=== PATIENT | female | born 1930 | race Caucasian/White ===

== ENCOUNTER 2017-02-01 16:42 | Inpatient (IN) | payer MEDICARE ==
[2017-02-01] MEDS ORDERED: hydrALAZINE IV* 20 MG/ML VIAL IV SLOW PU ONE (16:58)
[2017-02-01 17:23] LABS: Hematocrit 39 % (35-47); Hemoglobin 12.8 g/dl (12.0-16.0); Mean Corpuscular HGB Conc 33 g/dl (31-36); Mean Corpuscular Hemoglobin 32 pg (27-31); Mean Corpuscular Volume 95 fL (80-97); Mean Platelet Volume 8 um3 (7.4-10.4); Red Blood Count 4.07 10^6/ul (4.0-5.4); Red Cell Distribution Width 14 % (10.5-15); White Blood Count 6.7 10^3/ul (3.5-10.8)
[2017-02-01 17:40] LABS: Albumin 3.8 g/dL (3.2-5.2); BUN/Creatinine Ratio 22.2 (8-20); EGFR Non-African American 66.9 (>60); Globulin 2.8 g/dL (2-4); HDL Cholesterol 57.6 mg/dL; Potassium 3.4 mmol/L (3.5-5.0); Total Bilirubin 0.5 mg/dL (0.2-1.0); Total Protein 6.6 g/dL (6.4-8.9)
[2017-02-01 17:41] LABS: Troponin I 0.03 ng/mL (<0.04)
[2017-02-01] MEDS ORDERED: Ondansetron INJ* 2 MG/ML VIAL ONE (17:49)
--- NOTE | 2017-02-01 17:50 | RAD ---
INDICATION: Dysphagia and unsteadiness. COMPARISON: Most recent comparison CT of the brain is dated July 12, 2015 TECHNIQUE: Contiguous axial sections of the brain were obtained from the skull base to the vertex without contrast. FINDINGS: The ventricles, cisterns and sulci exhibit mild to moderate symmetrical involutional changes unchanged since the prior CT of the brain. There is mild periventricular and subcortical white matter hypoattenuation most consistent with chronic microvascular disease. Again seen is a more confluent hypoattenuating focus at the right subinsular ribbon unchanged since the prior CT examination. Otherwise the gloria-white matter differentiation is adequately maintained and there is no sulcal effacement. No significant focal abnormality or mass effect is present. There is no evidence for intracranial hemorrhage. There is atherosclerotic calcification of the bilateral vertebral arteries and bilateral petrous carotid arteries. No significant focal osseous abnormality is present. The visualized portion of the paranasal sinuses and mastoid air cells appear clear. IMPRESSION: Chronic findings described in the body the report without CT evidence of acute intracranial abnormality.
--- NOTE | 2017-02-01 17:52 | RAD ---
INDICATION: Dysphagia COMPARISON: Most recent comparison chest x-rays dated June 02, 2009 TECHNIQUE: PA and lateral views of the chest were obtained. FINDINGS: Again seen overlying the left upper chest is a cardiac pacemaker with 2 leads overlying the heart. The heart and mediastinum are normal in size and contour. The lungs are grossly clear. There is no evidence of large pleural effusion. Degenerative changes of the thoracic spine include loss of intervertebral disc height. There is no radiographic evidence of free air beneath the diaphragm IMPRESSION: No radiographic evidence of acute cardiopulmonary disease.
[2017-02-01] MEDS ORDERED: Aspirin SUPP* 300 MG ONE (17:59)
[2017-02-01] MEDS ORDERED: Ondansetron INJ* 2 MG/ML VIAL IV ONE ×2 (18:02→18:18)
[2017-02-01] MEDS ORDERED: Labetalol IV* 5 MG/ML 20 ML VIAL IV PUSH ONE (18:15)
[2017-02-01] MEDS ORDERED: Aspirin EC Low Dose* 81 MG TAB.EC ONE (18:19)
[2017-02-01] MEDS: Aspirin Low Dose CHEW TAB* 81 MG PO ONE ×2 (18:21→19:53)
[2017-02-01] MEDS ORDERED: Alteplase* 100 MG VIAL ONE (19:09)
[2017-02-01] MEDS ORDERED: Iohexol 350* (CONTRAST) 500 ML MDV IV ONE (19:11)
[2017-02-01] MEDS ORDERED: Metoclopramide IV* 5 MG/ML 2 ML VIAL IV ONE (19:33)
[2017-02-01] MEDS ORDERED: Metoclopramide IV* 5 MG/ML 2 ML VIAL ONE (19:38)
[2017-02-01] MEDS ORDERED: ALTEPLASE IV ONE ×3 (20:06→20:18)
--- NOTE | 2017-02-01 20:06 | RAD ---
INDICATION: Right-sided weakness and difficulty speaking. COMPARISON: CT from the same day acquired at [address] of the brain dated July 12, 2015 TECHNIQUE: Contiguous axial sections of the brain were obtained from the skull base to the vertex without contrast. For the purposes of better identifying the hyperdense focus external to the left frontal lobe reformats in the sagittal and coronal planes were made. FINDINGS: Again seen is a hyperdense focus external to the left frontal lobe (axial image 22, sagittal image 50 and coronal image 19). This structure measures 11 x 5 mm in the axial plane and approximately 8 mm in the cephalocaudal dimension. Reformats of the same day CT of the brain were made and this structure is morphologically similar with similar dimensions. Along the inferior margin there is calcification. The Hounsfield unit of the hyperdense portion measures 85 which is greater than would be expected for blood products. There is no definite extra-axial blood products. There is mild periventricular and subcortical white matter hypoattenuation. The gloria-white matter differentiation is adequately maintained. There is no sulcal effacement. IMPRESSION: The hypodense focus external to the left frontal lobe described above is most consistent with a partially calcified meningioma. This structure is unchanged from the same day CT examination acquired at 0725 hours. Comparison to the July 12, 2015 CT examination is somewhat limited as only axial images are available, but this extra-axial structure appears similar in the axial plane. No definite extra-axial hemorrhage is identified. These findings were discussed over the telephone with Dr. Gong at approximately 1950 hours on February 01, 2017.
[2017-02-01 20:42] LABS: Urine Bacteria 1+ (Absent); Urine Bilirubin Negative (Negative); Urine Glucose 1+(50 mg/dL) (Negative); Urine Nitrite Negative (Negative)
--- NOTE | 2017-02-01 22:28 | RAD ---
CPT II: CPT II Codes: 3100F INDICATION: Speech difficulty and right-sided weakness. The patient has received intravenous therapeutic TPA. COMPARISON: To noncontrast CTs from the same date as well as CT of the brain dated July 12, 2015 TECHNIQUE: A CT angiogram of the head and neck was performed with 80 cc of Omnipaque 350. Contiguous axial sections were obtained from the thoracic inlet through the [place] of [place]. Images were reconstructed in the sagittal, coronal planes and in a 3-D volume rendered format. The distal cervical internal carotid artery diameter is used as the denominater for stenosis measurement. CTA NECK: The common and internal carotid arteries are patent without hemodynamically significant stenosis. Right: The rather carotid bifurcation the common carotid artery measures 6 mm in diameter. There is mixed attenuation atherosclerosis at the carotid bulb causing narrowing of the inferior most portion of the right internal carotid artery to 4 mm. This yields approximately 33% degree stenosis. Left: Immediately below the carotid bifurcation the common carotid artery measures 6 mm and short axis diameter. There is coarsely calcified atherosclerosis at the carotid bulb narrowing the lumen to 3 mm in short axis diameter. This yields approximately 50% degree stenosis. The left vertebral artery is diminutive relative to the right. Both vertebral arteries are adequately patent at the cervical level. The left vertebral artery exhibits high-grade stenosis after entering the foramen magnum (axial image 124 of 233). More superiorly the left vertebral artery becomes extremely diminutive prior to joining the right vertebral artery to form the basilar artery. CTA of the brain: The internal carotid, anterior and middle cerebral arteries appear are patent without high grade stenosis or occlusion. The vertebral, basilar and posterior cerebral arteries appear patent without high grade stenosis or occlusion. The left posterior communicating artery is extremely diminutive and/or absent. This causes the ho[place] of [place] to be incomplete. The left posterior inferior cerebellar artery is either extremely diminutive or absent relative to the contralateral side (axial image 140 of 233). NON-ARTERIAL FINDINGS: Again seen against the inner table of the left frontal lobe is a convex lesion measuring 7 x 15 mm in the axial plane and 11 mm and greatest cephalocaudal dimension. This structure is enhancing. IMPRESSION: 1. The superiormost intracranial portion of the left vertebral artery is extremely diminutive and exhibits at least 2 filling defects prior to its confluence into the basilar artery. 2. The left posterior inferior cerebellar artery is also extremely diminutive and/or absence in portions relative to the contralateral right side. 3. Mixed attenuation atherosclerosis at the bilateral carotid bulbs causes 33% degree stenosis on the right and 50% degree stenosis on the left. 4. Again seen is a convex mass extending from the inner table of the left frontal bone similar to the noncontrast CTs acquired the same day as well as a CT of the brain dated July 12, 2015. This mass appears slightly larger than the noncontrast CT examinations which is likely due to more thorough depiction after contrast administration. On a nonemergent basis this finding can be more completely characterized with MRI of the brain with and without contrast.
[2017-02-01] MEDS ORDERED: Acetaminophen TAB* 325 MG PO PRN (23:40)
[2017-02-01] MEDS ORDERED: Ondansetron INJ* 2 MG/ML VIAL IV PRN (23:41)
--- NOTE | 2017-02-01 23:44 | HP ---
H&P (Free Text) History and Physical: PCP: Autumn Ahmadi MD Date/Time: 2329 CC: garbled speech HPI: Mrs Huynh is an 87YO female HX HTN, HLD, DM2, diastolic dysfunction, VT, pacer, mild , LBBB, & mild dementia whose son-in-law was picking her up from [facility]. Finding her speech garbled, he called EMS and by their prompt arrival she was back to her baseline. Upon return to her ED room after CT brain WO, she again developed speech changes and was re-CT'd. Both were negative for hemorrhage. Tele-stroke was utilized and tPA administered at 2005. CTA head/ neck revealed filling defects in the posterior circulation, but no large vessel occlusion or culprit carotid lesion and so decision was made to admit to [facility] for post-tPA protocol. However prior to this, she was found to be markedly lethargic and so a 3rd CT brain WO was performed, again negative for hemorrhage. PMedHx VT mild LBBB diastolic dysfunction HTN HLD mild dementia Ambulatory Orders Sitagliptin Phosphate [Januvia] 1 tab PO DAILY 05/29/13 Valsartan TAB* [Diovan TAB*] 1 tab PO BID 05/30/13 Atorvastatin* [Lipitor*] 1 tab PO BEDTIME 02/25/15 Diltiazem HCl Coated Beads [Diltiazem HCl ER] 180 mg PO DAILY 02/01/17 Metoprolol Succinate [Metoprolol Succinate ER] 25 mg PO QPM 02/01/17 Metoprolol Succinate [Metoprolol Succinate ER] 50 mg PO QAM 02/01/17 Vitamin D-3 1 tab PO DAILY 02/01/17 metFORMIN* [Glucophage 500 MG TAB *] 500 mg PO DAILY 02/01/17 Allergies Penicillins Allergy (Intermediate, Verified 02/01/17 19:04) Hives Wheat Extract Allergy (Mild, Verified 02/01/17 19:04) Rash And Itching PSurgHx OU cataract extractions pacer placement cardiac cath 2013, negative for occlusive CAD tonsillectomy SocHx: no tobacco, alcohol, or recreational drugs; , lives at [facility]; full code status FamHx: positive for HTN, negative for CAD/CVA ROS: as above, otherwise reviewed and all were negative vitals: Vital Signs Temp 37.2 C 02/02/17 03:07 Pulse 64 02/02/17 03:07 Resp 15 02/02/17 03:11 BP 172/59 02/02/17 03:00 Pulse Ox 97 02/02/17 03:07 Intake & Output 02/01/17 02/01/17 02/02/17 11:59 23:59 11:59 Intake Total 54.0 Output Total 450 Balance 54.0 -450 Weight 60.192 kg 59.2 kg Intake: IV Fluids 54.0 Output: [place]ibode[place] 450 Constitutional: NAD, normally developed, well-nourished elderly white female HEENM: atraumatic; sclera/conjunctiva: anicteric/clear; hearing: clinically mildly decreased; oropharynx: clear, mucosa tacky Neck: soft tissue: non-tender; thyroid: normal Pulmonary: clear to auscultation bilaterally, good aeration, no accessory muscle use CV: RR/RR, normal S1S2, no carotid bruit, no jugular venous distention, 2+ B DP/ PT, no edema Abdominal: soft, non-distended, non-tender, no rebound/guarding/rigidity, normoactive bowel sounds, no hepatosplenomegaly or masses, no costovertebral angle tenderness Musculoskeletal: general: grossly intact, no palpable tenderness Integumental: normal appearance and texture of exposed skin Neurological cranial nerves III/IV/: symmetric light reflex, EOM w/ decreased medial and lateral motion bilaterally, PERRLA V: intact facial sensation VII: intact facial symmetry VIII: hearing clinically mildly decreased IX/X: symmetric palatal motion, no dysarthria XII: midline tongue protrusion, normal articulation motor: R handed LUE: 4/5 proximally, distally, & em physician strength RUE: 4+/5 proximally, distally, & em physician strength LLE: 4-/5 proximally & distally RLE: 4/5 proximally & distally coordination finger/nose: unable to perform primarily 2nd fatigue heal/hamlin: L unable to perform; R slow & incomplete DTRs biceps: 1+ B triceps: 1+ B brachioradialis: 1+ B patellar: 2+ B Achilles: trace B Babinski: upgoing L, downgoing R Psychiatric orientation: somnolent, arouses & answers brief questions, returning to sleep quickly affect: fatigue mood: acquiescent eye contact: poor content: reliable when she answers responses: slowed insight: poor Testing: Lab Results 02/01/17 02/01/17 02/01/17 Range/Units 17:18 17:18 17:18 WBC 6.7 (3.5-10.8) 10^3/ul RBC 4.07 (4.0-5.4) 10^6/ul Hgb 12.8 (12.0-16.0) g/dl Hct 39 (35-47) % MCV 95 (80-97) fL MCH 32 H (27-31) pg MCHC 33 (31-36) g/dl RDW 14 (10.5-15) % Plt Count 201 (150-450) 10^3/ul MPV 8 (7.4-10.4) um3 Neut % (Auto) 65.0 (38-83) % Lymph % (Auto) 26.0 (25-47) % [place] % (Auto) 7.1 (1-9) % Eos % (Auto) 1.0 (0-6) % Baso % (Auto) 0.9 (0-2) % Absolute Neuts (auto) 4.3 (1.5-7.7) 10^3/ul Absolute Lymphs (auto) 1.7 (1.0-4.8) 10^3/ul Absolute Monos (auto) 0.5 (0-0.8) 10^3/ul Absolute Eos (auto) 0.1 (0-0.6) 10^3/ul Absolute Basos (auto) 0.1 (0-0.2) 10^3/ul Absolute Nucleated RBC 0.01 10^3/ul Nucleated RBC % 0.1 INR (Anticoag Therapy) 0.94 (0.89-1.11) Sodium 137 (133-145) mmol/L Potassium 3.4 L (3.5-5.0) mmol/L Chloride 104 (101-111) mmol/L Carbon Dioxide 26 (22-32) mmol/L Anion Gap 7 (2-11) mmol/L BUN 18 (6-24) mg/dL Creatinine 0.81 (0.51-0.95) mg/dL Est GFR ( Amer) 86.0 (>60) Est GFR (Non-Af Amer) 66.9 (>60) BUN/Creatinine Ratio 22.2 H (8-20) Glucose 175 H (70-100) mg/dL POC Glucose (mg/dL) (70-100) mg/dL Lactic Acid (0.5-2.0) mmol/L Calcium 9.0 (8.6-10.3) mg/dL Total Bilirubin 0.50 (0.2-1.0) mg/dL AST 18 (13-39) U/L ALT 12 (7-52) U/L Alkaline Phosphatase 53 (34-104) U/L Troponin I 0.03 (<0.04) ng/mL Total Protein 6.6 (6.4-8.9) g/dL Albumin 3.8 (3.2-5.2) g/dL Globulin 2.8 (2-4) g/dL Albumin/Globulin Ratio 1.4 (1-3) Triglycerides 80 mg/dL Cholesterol 241 mg/dL LDL Cholesterol 167 mg/dL HDL Cholesterol 57.6 mg/dL Urine Color Urine Appearance Urine pH (5-9) Ur Specific [place] (1.010-1.030) Urine Protein (Negative) Urine Ketones (Negative) Urine Blood (Negative) Urine Nitrate (Negative) Urine Bilirubin (Negative) Urine Urobilinogen (Negative) Ur Leukocyte Esterase (Negative) Urine WBC (Auto) (Absent) Urine RBC (Auto) (Absent) Ur Squamous Epith Cells (Absent) Urine Bacteria (Absent) Urine Glucose (Negative) 02/01/17 02/01/17 02/01/17 Range/Units 17:18 17:56 20:30 WBC (3.5-10.8) 10^3/ul RBC (4.0-5.4) 10^6/ul Hgb (12.0-16.0) g/dl Hct (35-47) % MCV (80-97) fL MCH (27-31) pg MCHC (31-36) g/dl RDW (10.5-15) % Plt Count (150-450) 10^3/ul MPV (7.4-10.4) um3 Neut % (Auto) (38-83) % Lymph % (Auto) (25-47) % [place] % (Auto) (1-9) % Eos % (Auto) (0-6) % Baso % (Auto) (0-2) % Absolute Neuts (auto) (1.5-7.7) 10^3/ul Absolute Lymphs (auto) (1.0-4.8) 10^3/ul Absolute Monos (auto) (0-0.8) 10^3/ul Absolute Eos (auto) (0-0.6) 10^3/ul Absolute Basos (auto) (0-0.2) 10^3/ul Absolute Nucleated RBC 10^3/ul Nucleated RBC % INR (Anticoag Therapy) (0.89-1.11) Sodium (133-145) mmol/L Potassium (3.5-5.0) mmol/L Chloride (101-111) mmol/L Carbon Dioxide (22-32) mmol/L Anion Gap (2-11) mmol/L BUN (6-24) mg/dL Creatinine (0.51-0.95) mg/dL Est GFR ( Amer) (>60) Est GFR (Non-Af Amer) (>60) BUN/Creatinine Ratio (8-20) Glucose (70-100) mg/dL POC Glucose (mg/dL) 213 H (70-100) mg/dL Lactic Acid 0.7 (0.5-2.0) mmol/L Calcium (8.6-10.3) mg/dL Total Bilirubin (0.2-1.0) mg/dL AST (13-39) U/L ALT (7-52) U/L Alkaline Phosphatase (34-104) U/L Troponin I (<0.04) ng/mL Total Protein (6.4-8.9) g/dL Albumin (3.2-5.2) g/dL Globulin (2-4) g/dL Albumin/Globulin Ratio (1-3) Triglycerides mg/dL Cholesterol mg/dL LDL Cholesterol mg/dL HDL Cholesterol mg/dL Urine Color Yellow Urine Appearance Clear Urine pH 5.0 (5-9) Ur Specific [place] 1.014 (1.010-1.030) Urine Protein 1+(30 mg/dl) H (Negative) Urine Ketones 1+ H (Negative) Urine Blood Negative (Negative) Urine Nitrate Negative (Negative) Urine Bilirubin Negative (Negative) Urine Urobilinogen Negative (Negative) Ur Leukocyte Esterase Negative (Negative) Urine WBC (Auto) Trace(0-5/hpf) (Absent) Urine RBC (Auto) Trace(0-2/hpf) (Absent) Ur Squamous Epith Cells Present H (Absent) Urine Bacteria 1+ H (Absent) Urine Glucose 1+(50 mg/dl) H (Negative) ECG, personally reviewed: ventricularly paced rate 65 CXR, personally reviewed: IMPRESSION: No radiographic evidence of acute cardiopulmonary disease. first CT brain WO, personally reviewed: IMPRESSION: Chronic findings described in the body the report without CT evidence of acute intracranial abnormality. second CT brain WO, personally reviewed: IMPRESSION: The hypodense focus external to the left frontal lobe described above is most consistent with a partially calcified meningioma. This structure is unchanged from the same day CT examination acquired at 0725 hours. Comparison to the July 12, 2015 CT examination is somewhat limited as only axial images are available, but this extra-axial structure appears similar in the axial plane. No definite extra- axial hemorrhage is identified. third CT brain WO, personally reviewed: FINDINGS: There is contrast circulating in the intracranial system from prior contrast study. No hemorrhage. No shift or herniation. 1.4x6.3mm left frontal meningioma. Involutional changes with moderate ventriculomegaly. I do not have the prior scan currently nor do I have the patient's symptoms history. However there is increased low-density in the right superior cerebellum. Is this the area of the suspected infarct? CTA head/neck, personally reviewed: IMPRESSION: 1. The superiormost intracranial portion of the left vertebral artery is extremely diminutive and exhibits at least 2 filling defects prior to its confluence into the basilar artery. 2. The left posterior inferior cerebellar artery is also extremely diminutive and/or absence in portions relative to the contralateral right side. 3. Mixed attenuation atherosclerosis at the bilateral carotid bulbs causes 33 % degree stenosis on the right and 50% degree stenosis on the left. 4. Again seen is a convex mass extending from the inner table of the left frontal bone similar to the noncontrast CTs acquired the same day as well as a CT of the brain dated July 12, 2015. This mass appears slightly larger than the noncontrast CT examinations which is likely due to more thorough depiction after contrast administration. On a nonemergent basis this finding can be more completely characterized with MRI of the brain with and without contrast. Impression: 87F presenting with acute CVA s/p tPA DIAGNOSIS & PLAN Primary ischemic CVA s/p tPA : post-tPA protocol : Elyssa Nuno MD physician office secretary aware of admission : supportive care Secondary HX VT : telemetry diastolic dysfunction : strict I&Os : daily weights HTN : review meds once reconciled HLD : review meds once reconciled mild dementia : review meds once reconciled Admission Rational: inpatient for ICU post-CVA tPA protocol DVTp: tPA for 1st 24hours, then to be determined by attending Code Status: full HCP: daughter, Nohelia Ibarra [phone]
--- NOTE | 2017-02-01 23:50 | ED ---
Willow Desouza Jason, scribed for Anna Gong MD on 02/01/17 at 1949 . Progress - Progress Note Progress Note: 19:30 - This patient was signed out from Dr. Reilly, pending disposition, awaiting house fellow and CTA Head results. With the results of the CTA, Dr. Gong will call Dr. Hilliard and make the decision of whether the pt will stay in the ICU or be transferred to [facility]. 2245 - Dr. Gong visited the room to check on patient and discuss with pt and family the CTA results. Pt was sleeping, and snoring loudly; pt daughter said pt is a heavy sleeper. Dr. Gong attempted to arouse patient. Pt is responsive to pulling on right extremities. The patients LUE is flaccid, and the LLE is moving well. Patients eye exam shows pinpoint pupil. A non-contrast head CT was ordered to rule out intracranial bleed. 2331 - Head CT shows no intracranial bleeds. Dr. Gong consulted with Dr. Hilliard from [facility], who advised that the patient be admitted to [facility]. Dr. Gong subsequently consulted with Dr. Douglas, who will be admitting the patient. After this Head CT the patient was awake talking , and resting comfortably. The patient's motor exam was grossly non-focal. - Results/Orders Results/Orders: 19:01 - Brain CT reveals, per radiologist: the hypodense focus external to the left frontal lobe described above is most consistent with a partially calcified meningioma. This structure is unchanged from the same day CT examination acquired at 0725 hours. Comparison to the July 12, 2015 CT examination is somewhat limited as only axial images are available, but this extra-axial structure appears similar in the axial plane. No definite extra-axial hemorrhage is identified. These findings were discussed over the telephone with Dr. Gong at approximately 1950 on February 01, 2017. ED physician has reviewed this radiology report and agrees. 19:16 - Head CTA reveals The internal carotid, anterior and middle cerebral arteries appear are patent without high grade stenosis or occlusion. The vertebral, basilar and posterior cerebral arteries appear patent without high grade stenosis or occlusion. The left posterior communicating artery is extremely diminutive and/or absent. This causes the [place] to be incomplete. The left posterior inferior cerebellar artery is either extremely diminutive or absent relative to the contralateral side (axial image 140 of 233). NON-ARTERIAL FINDINGS: again seen against the inner table of the left frontal lobe is a convex lesion measuring 7 x 15 mm in the axial plane and 11 mm and greatest cephalocaudal dimension. This structure is enhancing. ED physician has reviewed this radiology report and agrees. 22:39 - Brain CT: Radiologist consulted with Dr. Gong and informed him that there are no signs of intracranial bleeding. Course/Dx - Diagnoses Provider Diagnoses: Ischemic cerebrovascular accident (CVA) - Provider Notifications Discussed Care Of Patient With: Vikas Douglas Time Discussed With Above Provider: 23:30 Instructed by Provider To: Admit As Inpatient The documentation as recorded by the Willow barnett Jason accurately reflects the service I personally performed and the decisions made by , Anna Gong MD.
[2017-02-02] MEDS ORDERED: hydrALAZINE IV* 20 MG/ML VIAL IV PRN (01:57)
[2017-02-02] MEDS: NS 0.9% 1000 ML* 1,000 ML IV SCH ×2 (02:09→15:20)
[2017-02-02] MEDS: Insulin LISPRO* 1 UNITS UNIT SUBCUT SCH ×5 (05:20→22:21)
[2017-02-02] MEDS ORDERED: Pantoprazole IV* 40 MG IV SCH (06:00)
[2017-02-02] MEDS ORDERED: Omeprazole CAP* 20 MG PO SCH (06:00)
--- NOTE | 2017-02-02 07:40 | RAD ---
HISTORY: Intracranial hemorrhage status post TPA administration COMPARISONS: February 01, 2017 at 5:24 PM, February 01, 2017 at 7:30 PM TECHNIQUE: Multiple contiguous axial CT scans were obtained of the head without intravenous contrast, though the patient received intravenous contrast shortly before the study. FINDINGS: HEMORRHAGE/INFARCT: There is hypoattenuation of the right superior cerebellum concerning for subacute hemorrhagic infarct. This has developed from the previous examination. MASSES/SHIFT: Again noted is an extra axial mass further described below. There is no shift. EXTRA-AXIAL SPACES: Again noted is a calcified left frontal extra-axial mass most consistent with meningioma measuring 0.6 cm in depth and 1.4 cm in transverse diameter. This is stable from the previous examination. SULCI AND VENTRICLES: The sulci and ventricles are normal in size and position for the patient's stated age. CEREBRUM: There is hypoattenuation of the periventricular and subcortical white matter. BRAINSTEM: There are no focal parenchymal abnormalities. CEREBELLUM: There is developing wedge-shaped hypoattenuation of the right superior cerebellum concerning for a subacute nonhemorrhagic infarct. VESSELS: There is calcification of the cavernous segments of the internal carotid arteries bilaterally and of the distal vertebral arteries bilaterally. PARANASAL SINUSES: The paranasal sinuses are clear. ORBITS: The orbits are unremarkable. BONES AND SOFT TISSUE: No bone or soft tissue abnormalities are noted. OTHER: None IMPRESSION: 1. DEVELOPING HYPOATTENUATION OF THE RIGHT SUPERIOR CEREBELLUM CONCERNING FOR SUBACUTE NONHEMORRHAGIC INFARCT. 2. STABLE LEFT FRONTAL MENINGIOMA. FINDINGS WERE DISCUSSED WITH DR. FARNSWORTH BY DR. GILL AT APPROXIMATELY 11:16 PM ON FEBRUARY 01, 2017
--- NOTE | 2017-02-02 08:47 | ED ---
Carl Desouza Angela, scribed for Devante Reilly MD on 02/01/17 at 1652 . Neurological HPI - HPI Summary HPI Summary: This pt is a 87 y/o female presenting to [facility] c/o unsteadiness and muffled speech x 20 min. Pt reports she was at home with her daughter and son-in-law making turkey when they noticed her muffled speech. Pt notes her speech currently in the ED is back to base line. EMS reports the pt was found hypertensive. PMHx includes HTN, DM type 2, pacemaker. Pt currently takes antihypertensive medications. Manual BP in the ED is 220/112 at arrival. Daughter (Nohelia Stauffer) states the pt's symptoms of unsteadiness and muffled speech began around 1600 today. Daughter reports the pt is not anticoagulated. Daughter states the pt takes Tylenol and has tension headaches. - History of Current Complaint Stated Complaint: DYSPHASIA Hx Obtained From: Patient Onset/Duration: Started hours ago, Still Present Timing: Sudden Onset Character: Other: - muffled speech, unsteadiness Aggravating: Nothing Alleviating: Nothing Associated Signs and Symptoms: Positive: Unsteady Gait - unsteadiness - Allergy/Home Medications Allergies/Adverse Reactions: Allergies Allergy/AdvReac Type Severity Reaction Status Date / Time Penicillins Allergy Intermediate Hives Verified 02/01/17 19:04 Wheat Extract Allergy Mild Rash And Verified 02/01/17 19:04 Itching PMH/Surg Hx/FS Hx/Imm Hx Endocrine/Hematology History: Reports: Hx Diabetes - type 2 Cardiovascular History: Reports: Hx Hypertension, Hx Pacemaker/ICD, Other Cardiovascular Problems/Disorders - HLD Sensory History: Reports: Hx Cataracts, Hx Glaucoma - Surgical History Surgery Procedure, Year, and Place: pacemaker= 2010 cataracts 2013 - Family History Known Family History: Positive: Other - Mother: CVA - Social History Alcohol Use: None Substance Use Type: Reports: None Smoking Status (MU): Never Smoked Tobacco Review of Systems Constitutional: Other - hypertension Negative: Fever, Chills Eyes: Negative ENT: Negative Cardiovascular: Negative Respiratory: Negative Gastrointestinal: Negative Neurological: Other - unsteadiness, muffled speech All Other Systems Reviewed And Are Negative: Yes Physical Exam - Summary Physical Exam Summary: VITAL SIGNS: Reviewed. GENERAL: Patient is a well-developed and nourished (MALE OR FEMALE) who is lying comfortable in the stretcher. Patient is not in any acute respiratory distress. HEAD AND FACE: No signs of trauma. No ecchymosis, hematomas or skull depressions. No sinus tenderness. EYES: PERRLA, EOMI x 2, No injected conjunctiva, no nystagmus. No photophobia. EARS: Hearing grossly intact. Ear canals and tympanic membranes are within normal limits. MOUTH: Oropharynx within normal limits. NECK: Supple, trachea is midline, no adenopathy, no JVD, no carotid bruit, no c- spine tenderness, neck with full ROM. No meningeal signs, no Kernig's or brudzinskis signs. CHEST: Symmetric, no tenderness at palpation LUNGS: Clear to auscultation bilaterally. No wheezing or crackles. CVS: Regular rate and rhythm, S1 and S2 present, no murmurs or gallops appreciated. ABDOMEN: Soft, non-tender. No signs of distention. No rebound no guarding, and no masses palpated. Bowel sounds are normal. EXTREMITIES: FROM in all major joints, no edema, no cyanosis or clubbing. NEURO: Alert and oriented x 3. No acute neurological deficits. Speech is normal and follows commands. NIH score (initial) = 0. SKIN: Dry and warm GCS: 15 Triage Information Reviewed: Yes Vital Signs On Initial Exam: Initial Vitals Pulse Ox 96 02/01/17 16:51 Vital Signs Reviewed: Yes Diagnostics - Vital Signs Vital Signs Temp Pulse Resp BP Pulse Ox 02/01/17 23:30 65 14 182/135 99 02/01/17 23:15 61 25 133/41 98 02/01/17 23:00 18 169/46 02/01/17 22:45 83 18 166/54 97 02/01/17 22:30 68 13 122/41 97 02/01/17 22:15 69 17 127/38 98 02/01/17 22:00 71 14 124/45 96 02/01/17 21:45 68 15 135/40 98 02/01/17 21:30 72 16 132/54 97 02/01/17 21:15 69 15 148/45 98 02/01/17 21:10 139/41 02/01/17 21:09 62 14 99 02/01/17 21:08 62 14 99 02/01/17 21:05 153/45 02/01/17 21:00 63 15 145/43 99 02/01/17 20:55 69 14 178/50 99 02/01/17 20:50 62 14 140/55 97 02/01/17 20:45 63 16 137/40 99 02/01/17 20:40 64 16 167/65 99 02/01/17 20:35 62 15 127/52 98 02/01/17 20:30 64 17 140/37 98 02/01/17 20:25 157/57 02/01/17 20:24 63 18 97 02/01/17 17:00 190/70 02/01/17 16:54 97.0 F 68 15 220/112 96 02/01/17 16:51 96 - Laboratory Lab Results: Lab Results 02/01/17 02/01/17 02/01/17 Range/Units 17:18 17:18 17:18 WBC 6.7 (3.5-10.8) 10^3/ul RBC 4.07 (4.0-5.4) 10^6/ul Hgb 12.8 (12.0-16.0) g/dl Hct 39 (35-47) % MCV 95 (80-97) fL MCH 32 H (27-31) pg MCHC 33 (31-36) g/dl RDW 14 (10.5-15) % Plt Count 201 (150-450) 10^3/ul MPV 8 (7.4-10.4) um3 Neut % (Auto) 65.0 (38-83) % Lymph % (Auto) 26.0 (25-47) % [place] % (Auto) 7.1 (1-9) % Eos % (Auto) 1.0 (0-6) % Baso % (Auto) 0.9 (0-2) % Absolute Neuts (auto) 4.3 (1.5-7.7) 10^3/ul Absolute Lymphs (auto) 1.7 (1.0-4.8) 10^3/ul Absolute Monos (auto) 0.5 (0-0.8) 10^3/ul Absolute Eos (auto) 0.1 (0-0.6) 10^3/ul Absolute Basos (auto) 0.1 (0-0.2) 10^3/ul Absolute Nucleated RBC 0.01 10^3/ul Nucleated RBC % 0.1 INR (Anticoag Therapy) 0.94 (0.89-1.11) Sodium 137 (133-145) mmol/L Potassium 3.4 L (3.5-5.0) mmol/L Chloride 104 (101-111) mmol/L Carbon Dioxide 26 (22-32) mmol/L Anion Gap 7 (2-11) mmol/L BUN 18 (6-24) mg/dL Creatinine 0.81 (0.51-0.95) mg/dL Est GFR ( Amer) 86.0 (>60) Est GFR (Non-Af Amer) 66.9 (>60) BUN/Creatinine Ratio 22.2 H (8-20) Glucose 175 H (70-100) mg/dL POC Glucose (mg/dL) (70-100) mg/dL Lactic Acid (0.5-2.0) mmol/L Calcium 9.0 (8.6-10.3) mg/dL Total Bilirubin 0.50 (0.2-1.0) mg/dL AST 18 (13-39) U/L ALT 12 (7-52) U/L Alkaline Phosphatase 53 (34-104) U/L Troponin I 0.03 (<0.04) ng/mL Total Protein 6.6 (6.4-8.9) g/dL Albumin 3.8 (3.2-5.2) g/dL Globulin 2.8 (2-4) g/dL Albumin/Globulin Ratio 1.4 (1-3) Triglycerides 80 mg/dL Cholesterol 241 mg/dL LDL Cholesterol 167 mg/dL HDL Cholesterol 57.6 mg/dL Urine Color Urine Appearance Urine pH (5-9) Ur Specific [place] (1.010-1.030) Urine Protein (Negative) Urine Ketones (Negative) Urine Blood (Negative) Urine Nitrate (Negative) Urine Bilirubin (Negative) Urine Urobilinogen (Negative) Ur Leukocyte Esterase (Negative) Urine WBC (Auto) (Absent) Urine RBC (Auto) (Absent) Ur Squamous Epith Cells (Absent) Urine Bacteria (Absent) Urine Glucose (Negative) 02/01/17 02/01/17 02/01/17 Range/Units 17:18 17:56 20:30 WBC (3.5-10.8) 10^3/ul RBC (4.0-5.4) 10^6/ul Hgb (12.0-16.0) g/dl Hct (35-47) % MCV (80-97) fL MCH (27-31) pg MCHC (31-36) g/dl RDW (10.5-15) % Plt Count (150-450) 10^3/ul MPV (7.4-10.4) um3 Neut % (Auto) (38-83) % Lymph % (Auto) (25-47) % [place] % (Auto) (1-9) % Eos % (Auto) (0-6) % Baso % (Auto) (0-2) % Absolute Neuts (auto) (1.5-7.7) 10^3/ul Absolute Lymphs (auto) (1.0-4.8) 10^3/ul Absolute Monos (auto) (0-0.8) 10^3/ul Absolute Eos (auto) (0-0.6) 10^3/ul Absolute Basos (auto) (0-0.2) 10^3/ul Absolute Nucleated RBC 10^3/ul Nucleated RBC % INR (Anticoag Therapy) (0.89-1.11) Sodium (133-145) mmol/L Potassium (3.5-5.0) mmol/L Chloride (101-111) mmol/L Carbon Dioxide (22-32) mmol/L Anion Gap (2-11) mmol/L BUN (6-24) mg/dL Creatinine (0.51-0.95) mg/dL Est GFR ( Amer) (>60) Est GFR (Non-Af Amer) (>60) BUN/Creatinine Ratio (8-20) Glucose (70-100) mg/dL POC Glucose (mg/dL) 213 H (70-100) mg/dL Lactic Acid 0.7 (0.5-2.0) mmol/L Calcium (8.6-10.3) mg/dL Total Bilirubin (0.2-1.0) mg/dL AST (13-39) U/L ALT (7-52) U/L Alkaline Phosphatase (34-104) U/L Troponin I (<0.04) ng/mL Total Protein (6.4-8.9) g/dL Albumin (3.2-5.2) g/dL Globulin (2-4) g/dL Albumin/Globulin Ratio (1-3) Triglycerides mg/dL Cholesterol mg/dL LDL Cholesterol mg/dL HDL Cholesterol mg/dL Urine Color Yellow Urine Appearance Clear Urine pH 5.0 (5-9) Ur Specific [place] 1.014 (1.010-1.030) Urine Protein 1+(30 mg/dl) H (Negative) Urine Ketones 1+ H (Negative) Urine Blood Negative (Negative) Urine Nitrate Negative (Negative) Urine Bilirubin Negative (Negative) Urine Urobilinogen Negative (Negative) Ur Leukocyte Esterase Negative (Negative) Urine WBC (Auto) Trace(0-5/hpf) (Absent) Urine RBC (Auto) Trace(0-2/hpf) (Absent) Ur Squamous Epith Cells Present H (Absent) Urine Bacteria 1+ H (Absent) Urine Glucose 1+(50 mg/dl) H (Negative) Result Diagrams: 02/01/17 17:18 02/01/17 17:18 Lab Statement: Any lab studies that have been ordered have been reviewed, and results considered in the medical decision making process. - Radiology Chest XR Xray Interpretation: No Acute Changes - IMPRESSION: No radiographic evidence of acute cardiopulmonary disease. ED physician has reviewed this radiology report and agrees. Radiology Interpretation Completed By: Radiologist - CT Brain CT CT Interpretation: No Acute Changes - IMPRESSION: Chronic findings described in the body the report without CT evidence of acute intracranial abnormality. ED physician has reviewed this radiology report and agrees. CT Interpretation Completed By: Radiologist CTA chest/neck CT Interpretation Completed By: Radiologist - Pending official radiologist report. Please see [employer]. - EKG 1658 Cardiac Rate: NL EKG Interpretation: Venticular pace rhythm at 65 bpm. EKG Comparison: No Significant Change - similar to prior EKG on 06/01/09. National Institutes Of Health - NIH Scale Level of Consciousness: Alert/Keenly Responsive Ask Patient the Month and His/Her Age: Both Correct Ask Pt to Open/Close Eyes and Radio Journalist/Release Non-Paretic Hand: Both Correctly Best Gaze (Only Horizontal Eye Movement): Normal Visual Field Testing: No Visual Loss Facial Paresis-Pt to Smile & Close Eyes or Grimace Symmetry: Minor Paralysis - left sided Motor Function - Right Arm: Drifts LT 10 seconds Motor Function - Left Arm: No Drift-Holds 10 Seconds Motor Function - Right Leg: Drifts LT 10 seconds Motor Function - Left Leg: No Drift-Holds 10 Seconds Limb Ataxia-Must be out of Proportion to Weakness Present: Present in One Limb Sensory (Use Pinprick to Test Arms/Legs/Trunk/Face): Pinprick Less on Affected Best Language (Describe Picture, Name Items): No Aphasia Dysarthria (Read Several Words): Slurs Some Words Extinction and Inattention: No Abnormality Total Score: 6 NIH Scale - NIH Scale Level of Consciousness: Alert/Keenly Responsive Ask Patient the Month and His/Her Age: Both Correct Ask Pt to Open/Close Eyes and Radio Journalist/Release Non-Paretic Hand: Both Correctly Best Gaze (Only Horizontal Eye Movement): Normal Visual Field Testing: No Visual Loss Facial Paresis-Pt to Smile & Close Eyes or Grimace Symmetry: Normal/Symmetrical Motor Function - Right Arm: No Drift-Holds 10 Seconds Motor Function - Left Arm: No Drift-Holds 10 Seconds Motor Function - Right Leg: No Drift-Holds 10 Seconds Motor Function - Left Leg: No Drift-Holds 10 Seconds Limb Ataxia-Must be out of Proportion to Weakness Present: Absent Sensory (Use Pinprick to Test Arms/Legs/Trunk/Face): Normal Best Language (Describe Picture, Name Items): No Aphasia Dysarthria (Read Several Words): Normal Extinction and Inattention: No Abnormality Total Score: 0 Re-Evaluation - Re-Evaluation First Eval Re-Evaluation Time: 17:50 Change: Worse Comment: [17:50] Pt has developed left sided facial droop, right sided weakness in UE and LE, and slurred speech. Blood pressure is 190/70. NIH score= 6. Second Eval Re-Evaluation Time: 18:15 Comment: Dr. Hilliard has began to assess the pt via telestroke. Course/Dx - Course Assessment/Plan: This pt is a 87 y/o female presenting to [facility] c/o unsteadiness and muffled speech x 20 min. Pt reports she was at home with her daughter and son-in-law making turkey when they noticed her muffled speech. Pt notes her speech currently in the ED is back to base line. EMS reports the pt was found hypertensive. PMHx includes HTN, DM type 2, pacemaker. Pt currently takes antihypertensive medications. Manual BP in the ED is 220/112 at arrival. Daughter (Nohelia Stauffer) states the pt's symptoms of unsteadiness and muffled speech began around 1600 today. Daughter reports the pt is not anticoagulated. Daughter states the pt takes Tylenol and has tension headaches. At arrival patient is able yo give a good history. NIH score at arrival is 0. She is Alert and oriented. It seems that her symptoms prior to arrival had resolved. Test results without any significant abnormalities. Chest XR shows no radiographic evidence of acute cardiopulmonary disease. Head CT shows no acute pathology. At arrival the pt had an NIH stroke scale of 0. While we were waiting on the test results at 17:50 the pt had a change in mental status. Pt developed left sided facial droop, right side weakness in UE and LE. Her NIH stroke scale is 6 at 17:50. Pt was still hypertensive after the hydralazine BP is 190/70, but her heart rate improved and the pt was given Labetalol as requested by Dr. Hilliard. Dr. Hilliard, who is the neurologist from [facility], is doing the telestroke. After reviewing the cat scan and assessment of the pt, Dr. Hilliard decided to give a tPA. The pt will get a tPA and then a CTA. With the results of the CTA, Dr. Gong will call Dr. Hilliard and make the decision of whether the pt will stay in the ICU or be transferred to [facility]. Pt will be signed out to Dr. Gong, pending disposition, awaiting CTA. Because patient's symptoms started after the 1st head Ct I decided to repeat a head CT to r/o bleed. Head CT is pending reading. Dr. Francis reading the head CT and is negative tPa will be given. Patient is hemodynamically stable. - Diagnoses Provider Diagnoses: Ischemic cerebrovascular accident (CVA) During the Visit The Following Alert/Code Occurred: Code Ponce - at 1752 - Physician Notifications Discussed Care Of Patient With: Dr. Hilliard - Neurologist from [facility] Time Discussed With Above Provider: 18:10 Instructed by Provider To: Other - I discussed the pt's case with Dr. Hilliard, who will assess the pt via telestroke. - Critical Care Time Critical Care Time: 75-104 min Discharge - Discharge Plan Condition: Stable Disposition: ADMITTED TO [facility] Discharge Disposition Comment: signed out to Dr. Gong, pending disposition, awaiting CTA head/neck The documentation as recorded by the Carl barnett Angela accurately reflects the service I personally performed and the decisions made by me, Devante Reilly MD.
[2017-02-02] MEDS ORDERED: Metoprolol Succinate XL TAB* 50 MG PO SCH (09:00)
[2017-02-02] MEDS ORDERED: Diltiazem CD CAP* 180 MG PO SCH (09:00)
[2017-02-02] MEDS ORDERED: Famotidine IV * 20 MG in NS 0.9% 100 ML* 100 ML IVPB SCH (09:00)
[2017-02-02] MEDS ORDERED: Docusate CAP* 100 MG PO SCH (09:00)
[2017-02-02] MEDS ORDERED: Valsartan TAB* 160 MG PO SCH (09:00)
[2017-02-02] MEDS: Famotidine IV* 10 MG/ML 2 ML (20 mg) IV SLOW PU SCH (09:50)
--- NOTE | 2017-02-02 10:01 | PN ---
Critical Care Services: Elderly female with IDDM admitted last night with acute stroke (CTA nondiagnostic) and received lytic therapy. She had an uneventful evening and this AM is awake but confused. Vital Signs: Temp Pulse Resp BP SpO2 FiO2 98.4 F 60 14 116/40 97 NOTE: Patient has a ventricular pacemaker in place, and is 100% paced. Physical Exam: Gen: Awake and not agitated, but is disoriented to place and time. HEENT: Pupils midposition and reactive. No facial asymmetry Lungs: Clear Cardiac: Reg rhythm. No murmurs. Abdomen:Not distended Extremities: No cyanosis or edema. Neuro: Moves all extremities equally. Hyporeflexive throughout. Fluid Balance (Past 24 Hours): 02/02/17 06:59 Intake Total 346 Output Total 550 Balance -204 Weight 132 lb Intake: IV Fluids 346 NS (0.9%) 346 Output: [place] 550 Labs: 02/02/17 05:10 POC Glucose (mg/dL) 224 H Studies: Repeat CT scan scheduled for later today (per protocol for lytic therapy). Nutrition: NPO Impression: No complications from lytic therapy Plan: 1. General supportive care. 2. Needs swallowing evaluation. 3. Will get neurology consult.
[2017-02-02] MEDS: Labetalol IV* 5 MG/ML 20 ML VIAL IV PUSH PRN ×2 (12:16→21:36)
--- NOTE | 2017-02-02 17:14 | CONS ---
CONSULTATION REPORT: DATE OF CONSULT: 02/02/17. LOCATION: She is currently in ICU room 5, bed 1. REASON FOR CONSULTATION: Stroke, status post tPA. HISTORY OF PRESENT ILLNESS: Ms. Huynh is an 87-year-old female who has a known history of VT with some mild aortic stenosis, left bundle branch block, has a pacemaker in place, also has a history of hypertension, hyperlipidemia, dementia, was previously seen by Dr. Santos in 2016 for a history of gait abnormalities and some memory loss. CT at that time showed the possibility of some normal-pressure hydrocephalus with central greater than peripheral volume loss. Also, focal hypodensity noted in the posterior right basal ganglia and chronic white matter disease. She had a lumbar spine CT done in July 2015 as well, which showed mild-to- moderate diffuse degenerative disk disease and facet osteoarthritis, most prominent at the L3-4 with mild spinal canal narrowing and neural foraminal stenosis. She was in her usual state of health. She lives alone in an assisted living facility when yesterday her son came over to pick her up for lunch at the [facility] and her speech was garbled. EMS was called and per report she was back to her baseline. She was brought to the ER and I reviewed the ER physician notes and nursing notes. She went for an initial CT of the head, which showed no acute changes. Per the ER doctor, she had been complaining of some muffled speech for approximately 20 minutes prior to her arrival in the ER. EMS reported that she was found hypertensive as well. Blood pressure in the ED was 220/112. The symptoms began at around 4 o'clock that day. She is not on any anticoagulation. NIH stroke scale at the time of arrival was 0. Her initial head CT showed no acute changes and at around 1750 she had a change in mental status, developed left-sided facial droop , right sided weakness in the upper and lower extremity. NIH stroke scale at that time was 6. She was given hydralazine due to hypertension and given labetalol as well per Dr. Hilliard, neurologist at [facility], who was called for a code gloria". TPA was given and then a CTA was done. Repeat head CT showed no acute changes. No evidence of bleeding. The patient was noted to be sleeping and snoring at 2245. Dr. Gong attempted to arouse the patient by pulling on the right extremity, noted the left upper extremity was flaccid and left lower extremity moving well. Eye exam showed pinpoint pupils. Another CT of the head was ordered to rule out bleed and the third head CT showed no evidence of bleeding. Jamal was consulted again and recommended admission to the ICU here at [facility]. It was noted in the ER notes that the patient was talking and resting comfortably, and the patient's motor exam was grossly nonfocal. This was at 2330. She was admitted to the ICU where overnight she has declined somewhat. She has been somewhat confused, although at times it is appropriate she is noted to have had significant speech problems in the ICU. There have been no new issues overnight, and her examination has been relatively stable otherwise. The following studies were done and reviewed: 1. CT of the brain done at 1650 noted chronic findings without evidence of acute intracranial abnormality. I agree with the findings there is a right frontal extraaxial hyperattenuating focus that looks similar to 07/12/15. 2. CTA of the head and neck was done at 1900 reviewed and agree with the findings, which show superior most intracranial portion of the left vertebral artery is extremely diminutive and exhibits at least two fillings defects prior to its confluence into the basilar artery. The left posterior cerebellar artery is also extremely diminutive and/or absent in portions relative to the contralateral right side. Mixed attenuation atherosclerosis at the bilateral carotid bulbs causes 33 degree stenosis on the right and 50 degree stenosis on the left, again seen a convex mass extending from the inner table at the left frontal bone similar to noncontrast CT acquired the same day, as well as the CT of the brain dated 07/12/15. The mass appears slightly larger than the noncontrast CT examination. It is likely due to more the patient after contrast administration. A second CTA of the head was done. 3. A second CTA of the head was done at 1915, which again showed similar findings. No evidence of bleeding. 4. A brain CT was repeated at 2238, which showed developing hypoattenuation of the right superior cerebellum concerning for a subacute nonhemorrhagic infarct, a stable left frontal meningioma was noted. PAST MEDICAL HISTORY: As noted above: 1. Ventricular tachycardia. 2. Left bundle branch block. 3. Mild aortic stenosis. 4. Hypertension. 5. Hyperlipidemia. 6. Mild dementia. 7. Diastolic dysfunction. 8. Diabetes type 2. PAST SURGICAL HISTORY: Includes tonsillectomy, cardiac cath in 2014, cardiac pacer placed, and cataract extractions. HOME MEDICATIONS: At home include: 1. Metformin 500 mg p.o. daily. 2. Vitamin D3 one p.o. daily. 3. Valsartan tab one tab p.o. b.i.d. 4. Januvia one tab p.o. daily. 5. Metoprolol 25 mg p.o. daily. 6. Metoprolol 25 mg in the p.m., 50 mg in the a.m. 7. Diltiazem 180 mg daily. 8. Atorvastatin one tab p.o. at bedtime, some of the dosages were not known. ALLERGIES: To PENICILLIN and WEED EXTRACT. FAMILY HISTORY: Per chart review is significant for hypertension. Negative for coronary artery disease or CVA. SOCIAL HISTORY: No tobacco, alcohol or drug use reported. She is a , lives in [facility]. REVIEW OF SYSTEMS: Review of systems in 14-organ systems was done. As noted above, the patient has no complaints currently. She is lying in her bed. She is able to answer some questions, but is slightly confused as well and has some difficulty expressing herself. She currently denies any symptoms and seems to have poor insight into her condition at this point. PHYSICAL EXAMINATION: Vital Signs: Temp of 98.4, blood pressure of 116/40, blood pressures have been in the 110s to high at 180/40s to 50s. She has remained afebrile. Blood pressures were elevated in the ER. The patient is a well- nourished, well-developed female, in no acute distress, lying in her hospital bed. She is pleasant, well dressed, well groomed. HEENT: She is normocephalic, atraumatic. Sclerae are anicteric. Mucous membranes are dry. Oropharynx is clear. Nares are patent. Neck is supple. No thyromegaly. No carotid bruits. Chest: Clear to auscultation bilaterally. Cardiovascular: She has a 3/6 holosystolic ejection murmur. Regular rhythm and rate. Abdomen is soft, nontender. Extremities: No clubbing, cyanosis, and 1+ edema in the feet bilaterally. She has dry flaky skin on her feet and legs. On neurologic exam, she is awake, she is alert, she is oriented to person, but difficult to ascertain whether she is oriented to place or time. It should be noted that the patient has some expressive aphasia and at times it was very difficult to understand what she was trying to say. Also, she seems to be somewhat confused this morning. Her speech is fluent. There is some dysarthria and at times she has paraphasic errors. She mumbles at times and seems to wander off topic at times. Her pupils were equally round and reactive to light. Extraocular muscles: She seems to have a right gaze preference, maybe somewhat inattentive on the left although she is able to look fully to the left and does respond to me on the left side when I am standing there. She blinks to threat to all quadrants. Had a difficult time with confrontational examination. Her face appears to have a left lower nasolabial fold flattening. Smile is slightly weaker on the left. Sensation appears to be intact on the face. Hearing appears to be intact bilaterally to finger rub. Tongue is midline. Palate raises symmetrically. Sternocleidomastoid and trapezius intact 5/5. Motor Exam : She is spontaneously moving all extremities. She has good effort in all extremities. She has generally 5/5 in the upper extremities bilaterally with some mild drift in the right upper extremity. She has 4+/5 in the right lower extremity, 5/5 proximally and 4+/5 distally. She has drift in the right lower extremity. In the left lower extremity, she has 5/5 proximally, 4+/5 with the foot extensors, otherwise 5/5 on the left. Her tone appears slightly increased in the legs bilaterally. There is no evidence of any significant atrophy. Sensation: She notes sensation to light touch and pinprick in all four extremities, again very difficult examination. She was somewhat noncompliant. There does not appear to be any extinguishing on examination to double simultaneous stimulation, but again very difficult exam. Her DTRs are 3+ and symmetric in the upper extremities, 3+ at the left patella, 4+ at the right patella, and 1+ at the ankles. She has equivocal Babinski's bilaterally. No upgoing toes. Finger-to- nose and rapid alternating movements, she had some difficulty with [id number] and rapid alternating movements bilaterally. Appears to have some past pointing. With [id number], she is able to do heel-to -hamlin with the left lower extremity, has some difficulty with the right lower extremity, which may be somewhat limited by weakness. Gait cannot be tested at this time. On my examination, NIH at 10:00 a.m. was 7 scored the following 1A:0 , 1B:0, 1C:0, 2:1, 3:0, 4:1, 5A:0, 5B:1, 6A:0, 6B:1, 7A:1, 8:0, 9:1, 10:1, 11:1 giving a total score of 7. NIH noted in the ER yesterday of 6. LABORATORY WORK: Includes a CBC with diff significant only for an MCH of 32, otherwise normal. INR of 0.94. Complete metabolic profile: Potassium at 3.4, BUN and creatinine ratio of 22.2. Glucose of 175, 213, 224, . Lactic acid is 0.7. Liver functions normal. Cholesterol of 241, LDL of 167, HDL of 57.6, and methylmalonic acid of 0.33. Urine showed 1+ protein, 1+ ketones, squamous present, urine bacteria 1+, urine glucose 1+. Reports all of the studies reviewed as noted above. ASSESSMENT AND PLAN: 1. Ms. Huynh is an 87-year-old female with multiple stroke risk factors presents to the hospital with acute onset of speech difficulties and may be some imbalance, which was resolved by the time she was admitted but had a fluctuating course in the ER with episodes of worsening speech and confusion, had a total of three CTs in the ER, which showed no evidence of acute hemorrhage. The last CT showed what could be an evolving hypodensity in the right cerebellum. Her examination is somewhat confusing and she may have additional strokes possibly embolic in nature. She has difficulty with finger- to-nose on the right, as well as [id number]-[id number]-tihh on the right consistent with her right cerebellar infarct. She also has some drift on the right arm and leg and she has what appears to be a very subtle left lower facial droop, although this could be her baseline. It is hard to tell she has what initially was thought to be some gaze preference to the right, but I was able to get her to look all the way to the left. She did not appear to have any visual field loss on the left and she does not appear to be overtly inattentive on the right or the left. She is status post TPA and she has had some slight worsening in the ICU, but appears to be stable overnight. The plan is to continue her TPA protocol for the first 24 hours. She was administered TPA at approximately 2022 yesterday and will be watched in the ICU on the protocol until then. 2. She is currently NPO. She is having some difficulty with speech and some expressive aphasia mild in nature, but suggest the possibility of a cortical involvement likely on the left. She is right-hand dominant. 3. Will need speech therapy evaluation, physical therapy and occupational therapy once stable. 4. Her medicines are being held for now. We will need to adjust her statin for a better cholesterol control. 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 She is a nonsmoker. 5. There is a previous workup in the past for by Dr. Santos for possible MPH. She was not seen again after that visit in 2015. This is something that will need to be followed up as an outpatient. She does appear to have some enlarged ventricles, which may be out of proportion to the atrophy. 6. Unfortunately, she will be unable to get an MRI because of her pacemaker. We will plan to repeat another CT likely tomorrow to look for evidence of a further evolving strokes, which may not have been present initially. 7. Dementia. May go along with the hydrocephalus, may be unrelated, but will need further workup as an outpatient. I will be glad to follow her up once discharged. 8. She has significant left vertebral artery stenosis left posterior inferior cerebellar artery diminutive/and/or absent in portions relatively contralateral side and both of these will be managed medically. Once she is stable, she will likely to be on dual-antiplatelet therapy. 9. She has a mass that is seen in the inner table of the left frontal bone, which appears to be slightly larger from the image on July 2015, although this could be related to contrast administration. This is something that will need to followed as well overtime. I will be signing out to Dr. Raza today, who will be taking over care and will be happy to see her on an outpatient basis once she is discharged. Thank you for the opportunity to participate in her care. [id number]/[facility] [place]: [id number] [facility] HOSPITALKirsten
[2017-02-02] MEDS ORDERED: Metoprolol Succinate XL TAB* 25 MG PO SCH (18:00)
--- NOTE | 2017-02-02 18:01 | ECHO ---
Patient: JANET DELGADO [facility] Rec#: [id number] : 1930 Date: 02/02/2017 Age: 87y Height: 152.4 cm / 60.0 in Weight: 59.9 kg / 132.0 lbs Sex: F BSA: 1.6 Room#: ICU 5 Admit Date#: 02/01/2017 Type: Inpatient Referring: Deven Roque Reading: Olivia Otto MD Post Hole Digger: Donna Gutierrez RN RDCS CC: Rudy Ahmadi MD Transthoracic Echocardiogram Indication: CVA S/P tPA BP: 150/53 HR: 65 Rhythm: Paced Findings History: HTN, HLD, DM, diastolic dysfunction, V tach, pacemaker, mild , LBBB, mild dementia Technical Comments: The study is technically limited due to patient body habitus. Completed at 1650. Left Ventricle: The left ventricular chamber size is decreased. Moderate concentric left ventricular hypertrophy is observed. Global left ventricular wall motion and contractility are within normal limits. There is normal left ventricular systolic function. The estimated ejection fraction is 60-65%. There is no consistent Doppler evidence of clinically significant diastolic dysfunction. Left Atrium: The left atrial chamber size is normal. Right Ventricle: The right ventricular chamber size and systolic function are within normal limits. A pacemaker wire is visualized in the right ventricle. Right Atrium: The right atrial cavity size is normal. A pacemaker wire is visualized in the right atrium. The bubble study is negative. A patent foramen ovale is not demonstrated with color Doppler and agitated contrast. Aortic Valve: The aortic valve is trileaflet. The aortic valve leaflets are mildly thickened. There is aortic annular calcification. There is a trace of aortic regurgitation. There is mild aortic stenosis. The mean gradient of the aortic valve is 14 mmHg. The peak instantaneous gradient of the aortic valve is 23 mmHg. The aortic valve area, by peak velocities, is calculated at 1.7 cm2. The aortic valve area, by VTI's, is calculated at 1.8 cm2. Mitral Valve: There is mitral annular calcification. The mitral valve leaflets are mildly thickened. There is mild to moderate mitral regurgitation. There is no evidence of mitral stenosis. Tricuspid Valve: The tricuspid valve leaflets are normal. There is moderate tricuspid regurgitation. There is evidence of moderate pulmonary hypertension. There is no tricuspid stenosis. Pulmonic Valve: The pulmonic valve appears normal. There is trace to mild pulmonic regurgitation. There is no pulmonic stenosis. Pericardium: There is no significant pericardial effusion. A pericardial fat pad is visualized. Aorta: There is no dilatation of the ascending aorta. The aortic arch is not well visualized. There is no dilation of the aortic root. Pulmonary Artery: The main pulmonary artery appears normal. Venous: The inferior vena cava appears normal in size. There is less than 50% respiratory change in the inferior vena cava dimension. Contrast: Normal saline was used as contrast for the bubble study. Images 1-3. Summary: There are changes noted when compared to the previous study done on 06/01/2009, there is now increase in mixed valvular disease severity. PHTN is now moderate instead of mild. Conclusions The left ventricular chamber size is decreased. Moderate concentric left ventricular hypertrophy is observed. There is normal left ventricular systolic function. The estimated ejection fraction is 60-65%. A pacemaker wire is visualized in the right ventricle. A pacemaker wire is visualized in the right atrium. The bubble study is negative. A patent foramen ovale is not demonstrated with color Doppler and agitated contrast. There is a trace of aortic regurgitation. There is mild aortic stenosis. There is mild to moderate mitral regurgitation. There is moderate tricuspid regurgitation. There is evidence of moderate pulmonary hypertension. There is trace to mild pulmonic regurgitation. Measurements Name Value Normal Range RVDdMajor (2D) 3.8 cm (2.2 - 4.4) RAd ISD 4CH 4.5 cm (3.4 - 4.9) RA (A4C)W 3.3 cm (2.9 - 4.6) IVSd (2D) 1.6 cm (0.6 - 1) LVPWd (2D) 1.3 cm (0.6 - 1) LVIDd (2D) 3.1 cm (3.6 - 5.4) LVIDs (2D) 2.1 cm - LV FS (2D) 32 % (25 - 45) Aortic Annulus 1.8 cm (1.4 - 2.6) Ao root diameter (2D) 2.4 cm (2.1 - 3.5) Ascending Ao 2.8 cm (2.1 - 3.4) LA dimension (AP) 2D 3.7 cm (2.3 - 3.8) LAd ISD 4CH 4.6 cm (2.9 - 5.3) LA ISD 4CH W 4.1 cm (2.5 - 4.5) Name Value Normal Range LA ESV SP 4CH (A/L) 36 ml - LA ESV SP 2CH (A/L) 40 ml - LA ESV BP (A/L) 41 ml - LA ESV BP (A/L) index 26.5 ml/m2 - LA ESV SP 4CH (MOD) 32 ml - LA ESV SP 2CH (MOD) 38 ml - Name Value Normal Range MV E-wave Vmax 1.1 m/sec - MV deceleration time 237 msec - MV A-wave Vmax 1.1 m/sec - MV E:A ratio 0.95 ratio - LV septal e' Vmax 0.06 m/sec - LV lateral e' Vmax 0.06 m/sec - LV E:e' septal ratio 18.3 ratio - LV E:e' lateral ratio 18.3 ratio - Name Value Normal Range AV Vmax 2.4 m/sec - AV VTI 56.6 cm - AV peak gradient 23 mmHg - AV mean gradient 14 mmHg - LVOT diameter 1.9 cm - LVOT Vmax 1.4 m/sec - LVOT VTI 35.1 cm - LVOT peak gradient 8 mmHg - LVOT mean gradient 5 mmHg - DOI (VTI) 0.58 ratio - DOI (Vmax) 0.62 ratio - JEMIMA (continuity Vmax) 1.7 cm2 - JEMIMA (continuity VTI) 1.8 cm2 - Name Value Normal Range TR Vmax 3.2 m/sec - TR peak gradient 41 mmHg - RAP 8 mmHg - RVSP 49 mmHg - IVC diameter 1.8 cm - Name Value Normal Range PV Vmax 0.87 m/sec -
[2017-02-02] MEDS ORDERED: Atorvastatin* 10 MG TAB PO SCH (21:00)
--- NOTE | 2017-02-02 21:08 | RAD ---
INDICATION: Somnolent with garbled speech. COMPARISON: Most recent CT the brain is February 01, 2017 TECHNIQUE: Contiguous axial sections of the brain were obtained from the skull base to the vertex without contrast. FINDINGS: Involving the right cerebellum there is a hypodensity measuring 2.9 x 4.5 cm in the axial plane. The hypodensity extends into the right cerebral peduncle and posterior aspect of the right midbrain. There is no hyperattenuating material to indicate acute territorial infarction. Findings of chronic subcortical and periventricular white matter disease are similar to prior CTs. The gloria-white matter differentiation is otherwise adequately maintained. A left frontal bone meningioma is unchanged. No significant focal osseous abnormality is present. The visualized portion of the paranasal sinuses and mastoid air cells appear clear. IMPRESSION: Evolution of right cerebellum infarction extending into the right cerebellar peduncle. There is no CT evidence of acute intracranial hemorrhage. Findings were discussed with Dr. Douglas over the telephone at 2050 hours on February 02, 2017.
[2017-02-03] MEDS: [UNRECOGNIZED DRUG - OTHER] IV SCH ×3 (00:13→08:20)
[2017-02-03] MEDS: Insulin LISPRO* 1 UNITS UNIT SUBCUT SCH ×6 (02:19→22:22)
[2017-02-03] MEDS: NS 0.9% 1000 ML* 1,000 ML IV SCH ×2 (04:16→18:01)
[2017-02-03] MEDS: Famotidine IV* 10 MG/ML 2 ML (20 mg) IV SLOW PU SCH (08:19)
--- NOTE | 2017-02-03 09:33 | PN ---
Critical Care Services: Patient is somnolent but arousable, but remains confused. Repeat CT scan last night shows extension of right cerebellar infarct with no signs of intracranial bleeding. Only other problem is high BP, controlled with nicardipine infusion. Vital Signs: Temp Pulse Resp BP SpO2 FiO2 99.3 F 65 20 163/60 94 3LNC Physical Exam: Gen:Somnolent but arousable HEENT: No facial asymmetry Lungs: Clear Extremities: No cyanosis or edema. Fluid Balance (Past 24 Hours): 02/03/17 06:59 Intake Total 1974 Output Total 1175 Balance +799 Weight 132 lb Intake: IV Fluids 1720 NS (0.9%) 1720 Medicated IV 254 Cardene 254 Output: Urine 950 Thibodeaux 225 Other: Estimated Void Medium Date of Last Bowel 01/03/17 Movement # Bowel Movements 1 Estimated Stool Amount Medium # Voids 4 Labs: 02/02/17 02/02/17 02/02/17 09:58 14:17 18:50 POC Glucose (mg/dL) 79 137 H 84 02/02/17 02/03/17 02/03/17 22:15 02:14 05:53 POC Glucose (mg/dL) 165 H 159 H 175 H Studies: CT scan - results as mentioned. Nutrition: NPO pending swallowing evaluation. Impression: Large ischemic cerebellar infarct. Plan: 1. Continue general supportive care, and begin feeding soon. 2. D/c nicardipine drip and switch to alternative method of BP control. 3. I will speak with daughter about end-of-life decisions. 4. Prognosis seems poor for meaningful neurologic recovery.
--- NOTE | 2017-02-03 12:08 | PN ---
FOLLOWUP NOTE: DATE OF SERVICE: 02/03/17 PATIENT OF: Dr. Nuno. HISTORY: This is an 87-year-old woman who has had a cerebellar stroke status post TPA who yesterday was awake and alert, but had some difficulty expressing her thoughts to Dr. Roque, the neurologist who saw her yesterday. Had a right gaze preference. She had facial asymmetry with weakness on the right side versus the left. The nurse today notes that she has declined since last night. MEDICATIONS: Include: 1. Pepcid IV. 2. Humalog. 3. Labetalol 20 mg IV push. 4. Zofran 4 mg q.6 hours. PHYSICAL EXAMINATION: Temperature 99.3, pulse 67, respirations 20, blood pressure 163/60. She was difficult to arouse and did not fully arouse. She did not fully eye open, but moved some to noxious stimuli Pupils were equal and reactive. Without cooperation, it was hard to detect the facial asymmetry. She seemed to withdraw from noxious stimuli bilaterally. Toes were equivocal bilaterally. Chest clear. Cardiovascular: Regular rate and rhythm. Abdomen is soft with positive bowel sounds. I reviewed her CT scan, which did show an evolution to her right cerebellar stroke extending into the right cerebellar peduncle according to Dr. Nobles. I think it also extended into the brain stem, and that there was a hypodensity on the brain stem on the right side, it was not well seen on the left. Her echo showed worsening of her valvular disease since her prior echo. LABS: Include a glucose of 175 today. No other new laboratories. I discussed with Dr. Nuno that there was a change from yesterday when the neurologist had last seen. Dr. Nuno notes that when he had seen her yesterday she was similar to this state. I discussed it is possible her decline from some point yesterday could be due to further extension of the stroke into her brain stem, but it is also possible that there could be bleeding complication or he could have bleeding causing this change in status. It is less likely that this stroke without bleeding would cause hydrocephalus, they can in this location, but based on the films last night there was no signs of hydrocephalus, the ventricle was open. I discussed with Dr. Nuno that if it was bleeding or developed into hydrocephalus these would both be potentially treatable. He realizes this but given this woman's overall status is in the process of discussing with the daughter pulling back care and not doing any further testing or intervention. I discussed with him that this would need to be done in the near future and this is what his plan is and he is going to hold off imaging until he speaks with the daughter in the near future. Thank you for sharing her case. [id number]/[facility] #: [id number] JUANA
[2017-02-03] MEDS: Labetalol IV* 5 MG/ML 20 ML VIAL IV PUSH PRN ×2 (13:21→19:29)
[2017-02-04] MEDS: Acetaminophen SUPP* 650 MG SUPP PR PRN (00:46)
[2017-02-04] MEDS: Labetalol IV* 5 MG/ML 20 ML VIAL IV PUSH PRN (01:22)
[2017-02-04] MEDS: Insulin LISPRO* 1 UNITS UNIT SUBCUT SCH ×6 (01:28→23:43)
[2017-02-04] MEDS ORDERED: NS 0.9% 500 ML* 500 ML IV ONE ×2 (06:00→23:00)
[2017-02-04] MEDS: Famotidine IV* 10 MG/ML 2 ML (20 mg) IV SLOW PU SCH (08:39)
[2017-02-04] MEDS: NS 0.9% 1000 ML* 1,000 ML IV SCH ×2 (08:39→22:26)
[2017-02-04] MEDS: Valsartan TAB* 160 MG PO SCH (11:06)
[2017-02-04] MEDS ORDERED: hydrALAZINE IV* 20 MG/ML VIAL ONE (11:35)
--- NOTE | 2017-02-04 15:35 | PN ---
Critical Care Services: Mental status improved today - able to answer simple commands. Up in a chair today. Vital Signs: Temp Pulse Resp BP SpO2 FiO2 100.0 F 65 20 185/64 96 Physical Exam: Gen:Somnolent but arousable. Oriented to person but not to place or time. Lungs:clear Extremities:No cyanosis or edema. Moves all extremities. Fluid Balance (Past 24 Hours): 02/04/17 06:59 Intake Total 1794 Output Total 900 Balance 894 Weight 136 lb 10.986 oz Intake: IV Fluids 1794 NS (0.9%) 1794 Medicated IV Cardene Oral 0 Output: Urine [place] 900 Labs: 02/04/17 05:28 POC Glucose (mg/dL) 111 H Studies: None Nutrition: Advanced to soft diet Impression: Improving - aphasia resolving. Plan: 1. Restart home antihypertensive meds. 2. Regular physical therapy. 3. Advance diet as tolerated.
[2017-02-04] MEDS: hydrALAZINE IV* 20 MG/ML VIAL IV SLOW PU PRN (17:38)
[2017-02-04] MEDS ORDERED: NS 0.9% 500 ML* 500 ML IV SCH (20:00)
[2017-02-04] MEDS: Metoprolol Succinate XL TAB* 25 MG PO SCH (21:26)
[2017-02-05] MEDS: hydrALAZINE IV* 20 MG/ML VIAL IV SLOW PU PRN ×4 (00:19→17:25)
[2017-02-05] MEDS ORDERED: Metoprolol Tartrate IV* 1 MG/ML 5 ML VIAL IV STA (03:18)
[2017-02-05] MEDS ORDERED: Albuterol 2.5 MG/3 ML NEB.SOL* (0.083%) ONE (04:34)
[2017-02-05] MEDS: Insulin LISPRO* 1 UNITS UNIT SUBCUT SCH ×4 (08:15→20:47)
[2017-02-05 08:49] LABS: Hematocrit 37 % (35-47); Hemoglobin 12.2 g/dl (12.0-16.0); Mean Corpuscular HGB Conc 33 g/dl (31-36); Mean Corpuscular Hemoglobin 32 pg (27-31); Mean Corpuscular Volume 96 fL (80-97); Mean Platelet Volume 9 um3 (7.4-10.4); Red Blood Count 3.85 10^6/ul (4.0-5.4); Red Cell Distribution Width 14 % (10.5-15); White Blood Count 8.9 10^3/ul (3.5-10.8)
[2017-02-05 09:05] LABS: BUN/Creatinine Ratio 28.8 (8-20); Calcium 8.7 mg/dL (8.6-10.3); EGFR African American 108.9 (>60); EGFR Non-African American 84.7 (>60); Potassium 3.1 mmol/L (3.5-5.0)
[2017-02-05] MEDS: Metoprolol Succinate XL TAB* 50 MG PO SCH (09:05)
[2017-02-05] MEDS: Famotidine IV* 10 MG/ML 2 ML (20 mg) IV SLOW PU SCH (09:05)
[2017-02-05] MEDS: Valsartan TAB* 160 MG PO SCH (09:05)
[2017-02-05] MEDS: KCL 20 MEQ/100 ML IVPREMIX* 20 MEQ/100 ML BAG IV SCH ×2 (11:05→14:51)
[2017-02-05] MEDS: Enoxaparin(*) 40 MG/0.4 ML SYR SUBCUT SCH (11:20)
--- NOTE | 2017-02-05 12:42 | PN ---
Critical Care Services: Continues overall gradual improvement. BP has been intermittently elevated, requiring IV hydralazine, but the problem is much improved after starting the outpatient antihypertensive regimen. Vital Signs: Temp Pulse Resp BP SpO2 FiO2 92.3 F 62 20 147/62 95 Physical Exam: Gen:Awake - answers quesions only sporadically. Follows commands, but not oriented to time or place. HEENT:No facial asymmetry Lungs: Occasional rhonchi Extremities: No cyanosis or edema. Moves all extremities, but has generalized weakness. Fluid Balance (Past 24 Hours): 02/05/17 06:59 Intake Total 4378 Output Total 715 Balance +3663 Weight 125 lb 0.034 oz Intake: IV Fluids 2666 NS (0.9%) 2666 IVPB 1132 NS (0.9%) 1132 Medicated IV Cardene Oral 580 Output: Urine [place] 715 Other: NOTE: Given fluid boluses for decreasing urine output. Labs: 02/05/17 08:15 Sodium 137 Potassium 3.1 L Chloride 105 Carbon Dioxide 27 BUN 19 Creatinine 0.66 Glucose 181 Calcium 8.7 Albumin 3.0 L 02/05/17 08:15 WBC 8.9 Hgb 12.2 Hct 37 Plt Count 152 Studies: None Nutrition: Soft diet Impression: Slow improvement in mental status. High BP coming under control after restarting outpatient antiypertensive regimen. Plan: Transfer to general medical floor for general supportive care and physical therapy.
[2017-02-05] MEDS ORDERED: LORazepam INJ* 2 MG/ML 1 ML VIAL IV PUSH PRN (17:02)
[2017-02-05] MEDS: Atorvastatin* 20 MG TAB PO SCH (20:46)
[2017-02-05] MEDS: Metoprolol Succinate XL TAB* 25 MG PO SCH (20:46)
[2017-02-05] MEDS: Acetaminophen SUPP* 650 MG SUPP PR PRN (20:56)
[2017-02-06] MEDS: hydrALAZINE IV* 20 MG/ML VIAL IV SLOW PU PRN ×3 (00:15→07:52)
[2017-02-06] MEDS: NS 0.9% 1000 ML* 1,000 ML IV SCH (00:35)
--- NOTE | 2017-02-06 05:53 | PN ---
PROGRESS NOTE: DATE OF SERVICE / DICTATION: 02/05/17 PATIENT OF: Dr. Nuno. HISTORY: This is an 87-year-old woman I am asked to followup by the attending, Dr. Nuno, for her stroke. She has spoken to the daughter and she is becoming more awake each day and was having short conversations, although is sometimes confused, with the family, but she is often sleepy and tired. She has been moving all extremities up with at least some power. MEDICATIONS: Include: 1. Diovan 160 daily. 2. Potassium chloride replacement. 3. Zofran 4 mg p.r.n. 4. Toprol 50 mg in the morning and 25 mg in the p.m. 5. Hydralazine 10 mg IV push for systolic blood pressure greater than 180. 6. Pepcid 20 mg IV daily. 7. Lovenox 40 mg subcu. PHYSICAL EXAMINATION: pulse 66, respirations 18, blood pressure 167/68. She was sleeping but awoke easily to her daughter's voice. She knew her name. She could follow some simple 1-step commands but not other simple 1-step commands, but for me she said only a couple of word phrases. Cranial nerves II through XII are nonfocal. She moved both arms with some power, but she moved her right arm more freely than her left, but she was able to hold her left up against both gravity and some resistance. Reflexes were trace to 1. Toes were equivocal to downgoing. Chest: Clear. Cardiovascular: Regular rate and rhythm. Abdomen: Soft with positive bowel sounds. DIAGNOSTIC STUDIES: I reviewed her last CT scan with the family in detail and had a prolonged conversation with the family. IMPRESSION AND PLAN: Time spent with the family and patient on this patient's care was more than 45 minutes and more than half of that was with patient in counseling. I discussed that it is likely that the cerebellar stroke extended into the brain stem and other things had been possible but given her overall clinical course, this is the most likely thing. I discussed we did not get an MRI scan for better definition and that there is no test at this point that would change her clinical care. I discussed that she is at risk for other posterior fossa ischemia but that we would have her on aspirin to reduce this risk, having her on a statin might also decrease risk of stroke severity if she were to have another stroke and would be recommended if tolerated. The family brought the issues of DNR and I discussed if she had a cardiopulmonary arrest that she was vulnerable for further neurological complications based on her past stroke and [employer] vascular disease more than other people who did not have this. At present, they were going to make a decision on DNR status. I discussed her overall prognosis and that she would not be going directly home but to hopefully should be able to be considered a candidate for nursing rehab and then at that point would be determined whether she can go back to [facility]. Thank you for sharing her case. [id number]/[facility] #: [id number] JUANA
[2017-02-06] MEDS: Famotidine IV* 10 MG/ML 2 ML (20 mg) IV SLOW PU SCH (09:22)
[2017-02-06] MEDS: Insulin LISPRO* 1 UNITS UNIT SUBCUT SCH ×4 (09:22→21:55)
[2017-02-06] MEDS: Enoxaparin(*) 40 MG/0.4 ML SYR SUBCUT SCH (09:23)
[2017-02-06] MEDS ORDERED: Labetalol IV* 5 MG/ML 20 ML VIAL IV PUSH PRN (10:02)
[2017-02-06] MEDS: Valsartan TAB* 160 MG PO SCH (13:02)
[2017-02-06] MEDS: Metoprolol Succinate XL TAB* 50 MG PO SCH (13:02)
[2017-02-06] MEDS: Aspirin Low Dose CHEW TAB* 81 MG PO SCH (13:02)
[2017-02-06] MEDS ORDERED: Docusate CAP* 100 MG PO PRN (16:51)
[2017-02-06] MEDS ORDERED: Bisacodyl SUPP* 10 MG SUPP PR ONE (16:52)
--- NOTE | 2017-02-06 17:45 | PN ---
Subjective Date of Service: 02/06/17 Interval History: RN concerned about breathing in AM, IVF stopped. Pt feed herself some food for lunch. Family wanting podiatry consult. Objective Active Medications: Acetaminophen (Tylenol Supp*) 650 mg AL Q6H PRN PRN Reason: FEVER/PAIN Last Admin: 02/05/17 20:56 Dose: 650 mg Aspirin (Aspirin Low Dose Tab*) 81 mg PO DAILY [facility] Last Admin: 02/06/17 13:02 Dose: 81 mg Atorvastatin Calcium (Lipitor*) 20 mg PO 1700 [facility] Last Admin: 02/05/17 20:46 Dose: 20 mg Docusate Sodium (Colace Cap*) 100 mg PO BID PRN PRN Reason: CONSTIPATION Enoxaparin Sodium (Lovenox(*)) 40 mg SUBCUT DAILY [facility] Last Admin: 02/06/17 09:23 Dose: 40 mg Famotidine (Pepcid Iv*) 20 mg IV SLOW PU DAILY [facility] Last Admin: 02/06/17 09:22 Dose: 20 mg Hydralazine HCl (Apresoline Iv*) 10 mg IV SLOW PU Q4H PRN PRN Reason: SBP > 180 Last Admin: 02/06/17 07:52 Dose: 10 mg Insulin Human Lispro (Humalog*) 0 units SUBCUT ACHS [facility] PRN Reason: Protocol Last Admin: 02/06/17 13:03 Dose: 1 units Labetalol HCl (Trandate Iv*) 20 mg IV PUSH Q4H PRN PRN Reason: BLOOD PRESSURE Lorazepam (Ativan Inj*) 1 mg IV PUSH Q6H PRN PRN Reason: ANXIETY Metoprolol Succinate (Toprol Xl Tab*) 50 mg PO QAM [facility] Last Admin: 02/06/17 13:02 Dose: 50 mg Metoprolol Succinate (Toprol Xl Tab*) 25 mg PO QPM [facility] Last Admin: 02/05/17 20:46 Dose: 25 mg Ondansetron HCl (Zofran Inj*) 4 mg IV Q6H PRN PRN Reason: NAUSEA Valsartan (Diovan Tab*) 160 mg PO DAILY [facility] Last Admin: 02/06/17 13:02 Dose: 160 mg Vital Signs 02/05/17 02/05/17 02/05/17 18:00 18:31 19:00 Temperature 95.5 F 98.1 F 98.1 F Pulse Rate 69 81 62 Respiratory 23 19 13 Rate Blood Pressure 194/73 (mmHg) O2 Sat by Pulse 92 92 87 Oximetry 02/05/17 02/05/17 02/05/17 19:01 20:00 23:51 Temperature 98.1 F 98.3 F 98.7 F Pulse Rate 64 63 64 Respiratory 16 16 20 Rate Blood Pressure 140/80 156/42 187/60 (mmHg) O2 Sat by Pulse 92 98 93 Oximetry 02/06/17 02/06/17 02/06/17 01:47 02:40 03:26 Temperature 97.9 F Pulse Rate 59 60 63 Respiratory 14 16 20 Rate Blood Pressure 156/48 186/55 (mmHg) O2 Sat by Pulse 97 97 95 Oximetry 02/06/17 02/06/17 02/06/17 07:20 07:33 09:00 Temperature 98.9 F Pulse Rate 71 68 Respiratory 22 18 18 Rate Blood Pressure 185/51 175/52 (mmHg) O2 Sat by Pulse 95 Oximetry 02/06/17 02/06/17 02/06/17 11:12 14:06 15:29 Temperature 97.4 F 99.1 F Pulse Rate 60 87 80 Respiratory 18 20 24 Rate Blood Pressure 177/42 154/52 152/48 (mmHg) O2 Sat by Pulse 98 95 Oximetry 02/06/17 16:03 Temperature Pulse Rate 79 Respiratory Rate Blood Pressure 170/56 (mmHg) O2 Sat by Pulse Oximetry Oxygen Devices in Use Now: None Appearance: Chronically ill appearing. Sitting in bed Ears/Nose/Mouth/Throat: NL Teeth, Lips, Gums Neck: NL Appearance and Movements; NL JVP, Trachea Midline Respiratory: Symmetrical Chest Expansion and Respiratory Effort, Clear to Auscultation Cardiovascular: NL Sounds; No Murmurs; No JVD, RRR Abdominal: NL Sounds; No Tenderness; No Distention, No Hepatosplenomegaly Extremities: No Edema Skin: No Rash or Ulcers Neurological: - - oriented to name and year of but not place or time. Wiggles toes, did not plantarflex feet. 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 Result Diagrams: 02/05/17 08:15 02/05/17 08:15 Additional Lab and Data: Lab Results 02/01/17 02/01/17 02/01/17 Range/Units 17:18 17:18 17:18 WBC 6.7 (3.5-10.8) 10^3/ul RBC 4.07 (4.0-5.4) 10^6/ul Hgb 12.8 (12.0-16.0) g/dl Hct 39 (35-47) % MCV 95 (80-97) fL MCH 32 H (27-31) pg MCHC 33 (31-36) g/dl RDW 14 (10.5-15) % Plt Count 201 (150-450) 10^3/ul MPV 8 (7.4-10.4) um3 Neut % (Auto) 65.0 (38-83) % Lymph % (Auto) 26.0 (25-47) % [place] % (Auto) 7.1 (1-9) % Eos % (Auto) 1.0 (0-6) % Baso % (Auto) 0.9 (0-2) % Absolute Neuts (auto) 4.3 (1.5-7.7) 10^3/ul Absolute Lymphs (auto) 1.7 (1.0-4.8) 10^3/ul Absolute Monos (auto) 0.5 (0-0.8) 10^3/ul Absolute Eos (auto) 0.1 (0-0.6) 10^3/ul Absolute Basos (auto) 0.1 (0-0.2) 10^3/ul Absolute Nucleated RBC 0.01 10^3/ul Nucleated RBC % 0.1 INR (Anticoag Therapy) 0.94 (0.89-1.11) Sodium 137 (133-145) mmol/L Potassium 3.4 L (3.5-5.0) mmol/L Chloride 104 (101-111) mmol/L Carbon Dioxide 26 (22-32) mmol/L Anion Gap 7 (2-11) mmol/L BUN 18 (6-24) mg/dL Creatinine 0.81 (0.51-0.95) mg/dL Est GFR ( Amer) 86.0 (>60) Est GFR (Non-Af Amer) 66.9 (>60) BUN/Creatinine Ratio 22.2 H (8-20) Glucose 175 H (70-100) mg/dL POC Glucose (mg/dL) (70-100) mg/dL Lactic Acid (0.5-2.0) mmol/L Calcium 9.0 (8.6-10.3) mg/dL Total Bilirubin 0.50 (0.2-1.0) mg/dL AST 18 (13-39) U/L ALT 12 (7-52) U/L Alkaline Phosphatase 53 (34-104) U/L Troponin I 0.03 (<0.04) ng/mL Total Protein 6.6 (6.4-8.9) g/dL Albumin 3.8 (3.2-5.2) g/dL Globulin 2.8 (2-4) g/dL Albumin/Globulin Ratio 1.4 (1-3) Triglycerides 80 mg/dL Cholesterol 241 mg/dL LDL Cholesterol 167 mg/dL HDL Cholesterol 57.6 mg/dL Urine Color Urine Appearance Urine pH (5-9) Ur Specific [place] (1.010-1.030) Urine Protein (Negative) Urine Ketones (Negative) Urine Blood (Negative) Urine Nitrate (Negative) Urine Bilirubin (Negative) Urine Urobilinogen (Negative) Ur Leukocyte Esterase (Negative) Urine WBC (Auto) (Absent) Urine RBC (Auto) (Absent) Ur Squamous Epith Cells (Absent) Urine Bacteria (Absent) Urine Glucose (Negative) 02/01/17 02/01/17 02/01/17 Range/Units 17:18 17:56 20:30 WBC (3.5-10.8) 10^3/ul RBC (4.0-5.4) 10^6/ul Hgb (12.0-16.0) g/dl Hct (35-47) % MCV (80-97) fL MCH (27-31) pg MCHC (31-36) g/dl RDW (10.5-15) % Plt Count (150-450) 10^3/ul MPV (7.4-10.4) um3 Neut % (Auto) (38-83) % Lymph % (Auto) (25-47) % [place] % (Auto) (1-9) % Eos % (Auto) (0-6) % Baso % (Auto) (0-2) % Absolute Neuts (auto) (1.5-7.7) 10^3/ul Absolute Lymphs (auto) (1.0-4.8) 10^3/ul Absolute Monos (auto) (0-0.8) 10^3/ul Absolute Eos (auto) (0-0.6) 10^3/ul Absolute Basos (auto) (0-0.2) 10^3/ul Absolute Nucleated RBC 10^3/ul Nucleated RBC % INR (Anticoag Therapy) (0.89-1.11) Sodium (133-145) mmol/L Potassium (3.5-5.0) mmol/L Chloride (101-111) mmol/L Carbon Dioxide (22-32) mmol/L Anion Gap (2-11) mmol/L BUN (6-24) mg/dL Creatinine (0.51-0.95) mg/dL Est GFR ( Amer) (>60) Est GFR (Non-Af Amer) (>60) BUN/Creatinine Ratio (8-20) Glucose (70-100) mg/dL POC Glucose (mg/dL) 213 H (70-100) mg/dL Lactic Acid 0.7 (0.5-2.0) mmol/L Calcium (8.6-10.3) mg/dL Total Bilirubin (0.2-1.0) mg/dL AST (13-39) U/L ALT (7-52) U/L Alkaline Phosphatase (34-104) U/L Troponin I (<0.04) ng/mL Total Protein (6.4-8.9) g/dL Albumin (3.2-5.2) g/dL Globulin (2-4) g/dL Albumin/Globulin Ratio (1-3) Triglycerides mg/dL Cholesterol mg/dL LDL Cholesterol mg/dL HDL Cholesterol mg/dL Urine Color Yellow Urine Appearance Clear Urine pH 5.0 (5-9) Ur Specific [place] 1.014 (1.010-1.030) Urine Protein 1+(30 mg/dl) H (Negative) Urine Ketones 1+ H (Negative) Urine Blood Negative (Negative) Urine Nitrate Negative (Negative) Urine Bilirubin Negative (Negative) Urine Urobilinogen Negative (Negative) Ur Leukocyte Esterase Negative (Negative) Urine WBC (Auto) Trace(0-5/hpf) (Absent) Urine RBC (Auto) Trace(0-2/hpf) (Absent) Ur Squamous Epith Cells Present H (Absent) Urine Bacteria 1+ H (Absent) Urine Glucose 1+(50 mg/dl) H (Negative) Microbiology and Other Data: Microbiology 02/02/17 01:40 Nasal Screen MRSA (PCR)(ESTELITA) - Final Nasal Mrsa Negative Assess/Plan/Problems-Billing Assessment: 87 yo female PMH HTN, LBBB, VT p/w right cerebellar CVA. - Patient Problems (1) CVA (cerebral vascular accident) Current Visit: Yes Status: Acute Code(s): I63.9 - CEREBRAL INFARCTION, UNSPECIFIED SNOMED Code(s): 630567903 Comment: right cerbellar infarct, nonhemorraghic s/p TPA PT/OT SNF placement aspiration precautions aspirin 81mg atorvastatin 20mg appreciate neuro recs [employer] [facility] (2) HTN (hypertension) Current Visit: Yes Status: Acute Code(s): I10 - ESSENTIAL (PRIMARY) HYPERTENSION SNOMED Code(s): 95111486 Comment: valsartan 160mg daily hydralazine and labetalol IV prn if not tolerating po (3) Tachypnea Current Visit: Yes Status: Acute Code(s): R06.82 - TACHYPNEA, NOT ELSEWHERE CLASSIFIED SNOMED Code(s): 423880298 Comment: lasis 20mg IV once, stop IVF aspiration precautions hx diastolic dysfunction. Status and Disposition: medicine inpatient. SNF referrals in AM with discharge when accepted. Attending: Ruben Shaw
[2017-02-06] MEDS: Atorvastatin* 20 MG TAB PO SCH (17:58)
[2017-02-06] MEDS ORDERED: Furosemide IV* 10 MG/ML 2 ML VIAL (20 MG) IV ONE (18:24)
[2017-02-06] MEDS ORDERED: Furosemide IV* 10 MG/ML 2 ML VIAL (20 MG) ONE (19:16)
[2017-02-06] MEDS: Metoprolol Succinate XL TAB* 25 MG PO SCH (20:05)
[2017-02-07] MEDS: hydrALAZINE IV* 20 MG/ML VIAL IV SLOW PU PRN (03:40)
--- NOTE | 2017-02-07 04:02 | PN ---
PROGRESS NOTE: DATE OF SERVICE / DICTATION: 02/06/17 PATIENT OF: Dr. Shaw. HISTORY: She is more alert and was feeding herself earlier today. She is speaking in sentences, but sometimes is making sense and sometimes confused. Family is very pleased that she is taking a significant turn for the better. PHYSICAL EXAMINATION: Temperature 99.1. She is alert, but not oriented. She is speaking in sentences that are fluent, but with some confusion. She moves all extremities with power, reaches for things equally in either hand. Chest: Clear. Cardiovascular: Regular rate and rhythm. Abdomen is soft with positive bowel sounds. I discussed that barring further stroke or complications, we can expect some continued improvement, but it was hard to know how much function she will fully regain. I have spoken to the 2 sons today and spoke to the caser up and the caser up is meeting with the family now and will meet with him further to try to sort out best placement. MEDICATIONS: Her medicines remain and include: 1. Lipitor 20 mg daily. 2. Aspirin 81 mg daily. 3. Apresoline p.r.n. 4. Metoprolol 25 mg daily. I discussed with the family that I will not be seeing her on a daily basis now, but will be around as problems arise and will see her if she is still in the hospital later on this week. [id number]/[facility] #: [id number] JUANA
[2017-02-07] MEDS: Insulin LISPRO* 1 UNITS UNIT SUBCUT SCH ×4 (08:47→21:14)
[2017-02-07] MEDS: Enoxaparin(*) 40 MG/0.4 ML SYR SUBCUT SCH (10:17)
[2017-02-07] MEDS: Famotidine IV* 10 MG/ML 2 ML (20 mg) IV SLOW PU SCH (11:13)
[2017-02-07] MEDS: Aspirin Low Dose CHEW TAB* 81 MG PO SCH (11:15)
[2017-02-07] MEDS: Metoprolol Succinate XL TAB* 50 MG PO SCH (11:15)
[2017-02-07] MEDS: Valsartan TAB* 160 MG PO SCH (11:15)
[2017-02-07] MEDS: Furosemide IV* 10 MG/ML 2 ML VIAL (20 MG) IV SCH ×2 (13:05→21:22)
[2017-02-07] MEDS: Atorvastatin* 20 MG TAB PO SCH (17:41)
[2017-02-07] MEDS: Metoprolol Succinate XL TAB* 25 MG PO SCH (17:42)
--- NOTE | 2017-02-07 18:54 | PN ---
Subjective Date of Service: 02/07/17 Interval History: Per RN barely arousable in AM, did wake up more by mid morning. Sat on side of bed with PT. RR decreased with lasix last night. [facility] [place] acceptance. Eventually taking po meds. Objective Active Medications: Acetaminophen (Tylenol Supp*) 650 mg [place] Q6H PRN PRN Reason: FEVER/PAIN Last Admin: 02/05/17 20:56 Dose: 650 mg Aspirin (Aspirin Low Dose Tab*) 81 mg PO DAILY [facility] Last Admin: 02/07/17 11:15 Dose: 81 mg Atorvastatin Calcium (Lipitor*) 20 mg PO 1700 [facility] Last Admin: 02/07/17 17:41 Dose: 20 mg Docusate Sodium (Colace Cap*) 100 mg PO BID PRN PRN Reason: CONSTIPATION Enoxaparin Sodium (Lovenox(*)) 40 mg SUBCUT DAILY [facility] Last Admin: 02/07/17 10:17 Dose: 40 mg Famotidine (Pepcid Iv*) 20 mg IV SLOW PU DAILY [facility] Last Admin: 02/07/17 11:13 Dose: 20 mg Furosemide (Lasix Iv*) 20 mg IV BID [facility] Stop: 02/08/17 09:01 Last Admin: 02/07/17 13:05 Dose: 20 mg Hydralazine HCl (Apresoline Iv*) 10 mg IV SLOW PU Q4H PRN PRN Reason: SBP > 180 Last Admin: 02/07/17 03:40 Dose: 10 mg Insulin Human Lispro (Humalog*) 0 units SUBCUT ACHS [facility] PRN Reason: Protocol Last Admin: 02/07/17 17:42 Dose: 2 units Labetalol HCl (Trandate Iv*) 20 mg IV PUSH Q4H PRN PRN Reason: BLOOD PRESSURE Lorazepam (Ativan Inj*) 1 mg IV PUSH Q6H PRN PRN Reason: ANXIETY Last Admin: 02/07/17 03:41 Dose: 1 mg Metoprolol Succinate (Toprol Xl Tab*) 50 mg PO QAM [facility] Last Admin: 02/07/17 11:15 Dose: 50 mg Metoprolol Succinate (Toprol Xl Tab*) 25 mg PO QPM [facility] Last Admin: 02/07/17 17:42 Dose: 25 mg Ondansetron HCl (Zofran Inj*) 4 mg IV Q6H PRN PRN Reason: NAUSEA Valsartan (Diovan Tab*) 160 mg PO DAILY [facility] Last Admin: 02/07/17 11:15 Dose: 160 mg Vital Signs 02/06/17 02/06/17 02/06/17 19:49 19:52 20:00 Temperature 97.7 F Pulse Rate 87 Respiratory 20 20 Rate Blood Pressure 183/62 175/61 (mmHg) O2 Sat by Pulse 93 Oximetry 02/06/17 02/07/17 02/07/17 23:25 03:32 03:41 Temperature 99.2 F Pulse Rate 75 Respiratory 20 26 Rate Blood Pressure 154/40 192/80 (mmHg) O2 Sat by Pulse 97 Oximetry 02/07/17 02/07/17 02/07/17 05:45 06:11 07:23 Temperature 98.2 F Pulse Rate 71 Respiratory 20 20 Rate Blood Pressure 172/64 173/47 (mmHg) O2 Sat by Pulse 97 Oximetry 02/07/17 02/07/17 02/07/17 07:42 10:15 11:06 Temperature 97.7 F Pulse Rate 76 70 Respiratory 26 20 Rate Blood Pressure 168/72 177/74 (mmHg) O2 Sat by Pulse 98 Oximetry 02/07/17 15:42 Temperature 97.6 F Pulse Rate 60 Respiratory 22 Rate Blood Pressure 144/51 (mmHg) O2 Sat by Pulse 95 Oximetry Oxygen Devices in Use Now: Nasal Cannula Appearance: NAD, very tired appearing. Arousable to voice, following commands. Eyes: No Scleral Icterus, PERRLA Neck: NL Appearance and Movements; NL JVP, Trachea Midline Respiratory: - - rales left base, decreased right base, no wheezing or rhonchi Cardiovascular: NL Sounds; No Murmurs; No JVD, RRR Abdominal: NL Sounds; No Tenderness; No Distention, No Hepatosplenomegaly Extremities: No Edema Skin: No Rash or Ulcers Neurological: - - oriented to name. batch unit treater strength 4+/5 b/l. wiggles big toe left foot but otherwise not following commands vs weak/foot drop. Result Diagrams: 02/05/17 08:15 02/05/17 08:15 Additional Lab and Data: Lab Results 02/01/17 02/01/17 02/01/17 Range/Units 17:18 17:18 17:18 WBC 6.7 (3.5-10.8) 10^3/ul RBC 4.07 (4.0-5.4) 10^6/ul Hgb 12.8 (12.0-16.0) g/dl Hct 39 (35-47) % MCV 95 (80-97) fL MCH 32 H (27-31) pg MCHC 33 (31-36) g/dl RDW 14 (10.5-15) % Plt Count 201 (150-450) 10^3/ul MPV 8 (7.4-10.4) um3 Neut % (Auto) 65.0 (38-83) % Lymph % (Auto) 26.0 (25-47) % [place] % (Auto) 7.1 (1-9) % Eos % (Auto) 1.0 (0-6) % Baso % (Auto) 0.9 (0-2) % Absolute Neuts (auto) 4.3 (1.5-7.7) 10^3/ul Absolute Lymphs (auto) 1.7 (1.0-4.8) 10^3/ul Absolute Monos (auto) 0.5 (0-0.8) 10^3/ul Absolute Eos (auto) 0.1 (0-0.6) 10^3/ul Absolute Basos (auto) 0.1 (0-0.2) 10^3/ul Absolute Nucleated RBC 0.01 10^3/ul Nucleated RBC % 0.1 INR (Anticoag Therapy) 0.94 (0.89-1.11) Sodium 137 (133-145) mmol/L Potassium 3.4 L (3.5-5.0) mmol/L Chloride 104 (101-111) mmol/L Carbon Dioxide 26 (22-32) mmol/L Anion Gap 7 (2-11) mmol/L BUN 18 (6-24) mg/dL Creatinine 0.81 (0.51-0.95) mg/dL Est GFR ( Amer) 86.0 (>60) Est GFR (Non-Af Amer) 66.9 (>60) BUN/Creatinine Ratio 22.2 H (8-20) Glucose 175 H (70-100) mg/dL POC Glucose (mg/dL) (70-100) mg/dL Lactic Acid (0.5-2.0) mmol/L Calcium 9.0 (8.6-10.3) mg/dL Total Bilirubin 0.50 (0.2-1.0) mg/dL AST 18 (13-39) U/L ALT 12 (7-52) U/L Alkaline Phosphatase 53 (34-104) U/L Troponin I 0.03 (<0.04) ng/mL Total Protein 6.6 (6.4-8.9) g/dL Albumin 3.8 (3.2-5.2) g/dL Globulin 2.8 (2-4) g/dL Albumin/Globulin Ratio 1.4 (1-3) Triglycerides 80 mg/dL Cholesterol 241 mg/dL LDL Cholesterol 167 mg/dL HDL Cholesterol 57.6 mg/dL Urine Color Urine Appearance Urine pH (5-9) Ur Specific [place] (1.010-1.030) Urine Protein (Negative) Urine Ketones (Negative) Urine Blood (Negative) Urine Nitrate (Negative) Urine Bilirubin (Negative) Urine Urobilinogen (Negative) Ur Leukocyte Esterase (Negative) Urine WBC (Auto) (Absent) Urine RBC (Auto) (Absent) Ur Squamous Epith Cells (Absent) Urine Bacteria (Absent) Urine Glucose (Negative) 02/01/17 02/01/17 02/01/17 Range/Units 17:18 17:56 20:30 WBC (3.5-10.8) 10^3/ul RBC (4.0-5.4) 10^6/ul Hgb (12.0-16.0) g/dl Hct (35-47) % MCV (80-97) fL MCH (27-31) pg MCHC (31-36) g/dl RDW (10.5-15) % Plt Count (150-450) 10^3/ul MPV (7.4-10.4) um3 Neut % (Auto) (38-83) % Lymph % (Auto) (25-47) % Lau[place] % (Auto) (1-9) % Eos % (Auto) (0-6) % Baso % (Auto) (0-2) % Absolute Neuts (auto) (1.5-7.7) 10^3/ul Absolute Lymphs (auto) (1.0-4.8) 10^3/ul Absolute Monos (auto) (0-0.8) 10^3/ul Absolute Eos (auto) (0-0.6) 10^3/ul Absolute Basos (auto) (0-0.2) 10^3/ul Absolute Nucleated RBC 10^3/ul Nucleated RBC % INR (Anticoag Therapy) (0.89-1.11) Sodium (133-145) mmol/L Potassium (3.5-5.0) mmol/L Chloride (101-111) mmol/L Carbon Dioxide (22-32) mmol/L Anion Gap (2-11) mmol/L BUN (6-24) mg/dL Creatinine (0.51-0.95) mg/dL Est GFR ( Amer) (>60) Est GFR (Non-Af Amer) (>60) BUN/Creatinine Ratio (8-20) Glucose (70-100) mg/dL POC Glucose (mg/dL) 213 H (70-100) mg/dL Lactic Acid 0.7 (0.5-2.0) mmol/L Calcium (8.6-10.3) mg/dL Total Bilirubin (0.2-1.0) mg/dL AST (13-39) U/L ALT (7-52) U/L Alkaline Phosphatase (34-104) U/L Troponin I (<0.04) ng/mL Total Protein (6.4-8.9) g/dL Albumin (3.2-5.2) g/dL Globulin (2-4) g/dL Albumin/Globulin Ratio (1-3) Triglycerides mg/dL Cholesterol mg/dL LDL Cholesterol mg/dL HDL Cholesterol mg/dL Urine Color Yellow Urine Appearance Clear Urine pH 5.0 (5-9) Ur Specific [place] 1.014 (1.010-1.030) Urine Protein 1+(30 mg/dl) H (Negative) Urine Ketones 1+ H (Negative) Urine Blood Negative (Negative) Urine Nitrate Negative (Negative) Urine Bilirubin Negative (Negative) Urine Urobilinogen Negative (Negative) Ur Leukocyte Esterase Negative (Negative) Urine WBC (Auto) Trace(0-5/hpf) (Absent) Urine RBC (Auto) Trace(0-2/hpf) (Absent) Ur Squamous Epith Cells Present H (Absent) Urine Bacteria 1+ H (Absent) Urine Glucose 1+(50 mg/dl) H (Negative) Microbiology and Other Data: Microbiology 02/02/17 01:40 Nasal Screen MRSA (PCR)(ESTELITA) - Final Nasal Mrsa Negative Assess/Plan/Problems-Billing Assessment: 87 yo female PMH HTN, LBBB, VT p/w right cerebellar CVA. - Patient Problems (1) CVA (cerebral vascular accident) Current Visit: Yes Status: Acute Code(s): I63.9 - CEREBRAL INFARCTION, UNSPECIFIED SNOMED Code(s): 362618837 Comment: right cerbellar infarct, nonhemorraghic s/p TPA in ICU PT/OT SNF placement -> [facility] aspiration precautions aspirin 81mg atorvastatin 20mg appreciate neuro recs [employer] (2) HTN (hypertension) Current Visit: Yes Status: Acute Code(s): I10 - ESSENTIAL (PRIMARY) HYPERTENSION SNOMED Code(s): 78309940 Comment: valsartan 160mg daily hydralazine and labetalol IV prn if not tolerating po added lasix 20mg IV bid with some improvement (3) Tachypnea Current Visit: Yes Status: Acute Code(s): R06.82 - TACHYPNEA, NOT ELSEWHERE CLASSIFIED SNOMED Code(s): 518573289 Comment: lasis 20mg IV BID x 3 doses. BMP in AM aspiration precautions hx diastolic dysfunction. Status and Disposition: medicine inpatient. [facility] accepted, likely d/c on 02/08. Attending: Ruben Shaw
[2017-02-08 08:29] LABS: BUN/Creatinine Ratio 19.7 (8-20); Calcium 8.6 mg/dL (8.6-10.3); EGFR African American 119.3 (>60); EGFR Non-African American 92.8 (>60); Magnesium 1.4 mg/dL (1.9-2.7); Potassium 2.8 mmol/L (3.5-5.0)
[2017-02-08] MEDS: Enoxaparin(*) 40 MG/0.4 ML SYR SUBCUT SCH (08:36)
[2017-02-08] MEDS: Insulin LISPRO* 1 UNITS UNIT SUBCUT SCH ×4 (08:36→20:50)
[2017-02-08] MEDS: Aspirin Low Dose CHEW TAB* 81 MG PO SCH (08:37)
[2017-02-08] MEDS: Valsartan TAB* 160 MG PO SCH (08:37)
[2017-02-08] MEDS: Famotidine IV* 10 MG/ML 2 ML (20 mg) IV SLOW PU SCH (08:37)
[2017-02-08] MEDS: Furosemide IV* 10 MG/ML 2 ML VIAL (20 MG) IV SCH ×2 (08:37→20:51)
[2017-02-08] MEDS: hydrALAZINE IV* 20 MG/ML VIAL IV SLOW PU PRN (08:37)
[2017-02-08] MEDS: Metoprolol Succinate XL TAB* 50 MG PO SCH (08:37)
[2017-02-08] MEDS ORDERED: Magnesium Sulfate IV* 3 GM in NS 0.9% 100 ML* 100 ML IVPB ONE (13:09)
[2017-02-08] MEDS: Potassium Chlor TAB* 20 MEQ TAB.ER PO SCH ×3 (14:22→21:43)
--- NOTE | 2017-02-08 15:35 | PN ---
Subjective Date of Service: 02/08/17 Interval History: Pt much more interactive this AM. Eating her breakfast though attests to some coughing with it. Daughter Nohelia in to discuss code status. Changed to DNR. Hypertensive. flaquita robles, repleted. left foot drop slightly better than yesterday. Objective Active Medications: Acetaminophen (Tylenol Supp*) 650 mg [place] Q6H PRN PRN Reason: FEVER/PAIN Last Admin: 02/05/17 20:56 Dose: 650 mg Aspirin (Aspirin Low Dose Tab*) 81 mg PO DAILY [facility] Last Admin: 02/08/17 08:37 Dose: 81 mg Atorvastatin Calcium (Lipitor*) 20 mg PO 1700 [facility] Last Admin: 02/07/17 17:41 Dose: 20 mg Docusate Sodium (Colace Cap*) 100 mg PO BID PRN PRN Reason: CONSTIPATION Enoxaparin Sodium (Lovenox(*)) 40 mg SUBCUT DAILY [facility] Last Admin: 02/08/17 08:36 Dose: 40 mg Famotidine (Pepcid Iv*) 20 mg IV SLOW PU DAILY [facility] Last Admin: 02/08/17 08:37 Dose: 20 mg Furosemide (Lasix Iv*) 20 mg IV BID [facility] Stop: 02/09/17 21:01 Hydralazine HCl (Apresoline Iv*) 10 mg IV SLOW PU Q4H PRN PRN Reason: SBP > 180 Last Admin: 02/08/17 08:37 Dose: 10 mg Insulin Human Lispro (Humalog*) 0 units SUBCUT ACHS [facility] PRN Reason: Protocol Last Admin: 02/08/17 12:14 Dose: 4 units Labetalol HCl (Trandate Iv*) 20 mg IV PUSH Q4H PRN PRN Reason: BLOOD PRESSURE Lorazepam (Ativan Inj*) 1 mg IV PUSH Q6H PRN PRN Reason: ANXIETY Last Admin: 02/07/17 03:41 Dose: 1 mg Metoprolol Succinate (Toprol Xl Tab*) 50 mg PO QAM [facility] Last Admin: 02/08/17 08:37 Dose: 50 mg Metoprolol Succinate (Toprol Xl Tab*) 25 mg PO QPM [facility] Last Admin: 02/07/17 17:42 Dose: 25 mg Ondansetron HCl (Zofran Inj*) 4 mg IV Q6H PRN PRN Reason: NAUSEA Potassium Chloride (Klor Con Er Tab*) 40 meq PO Q4H [facility] Stop: 02/08/17 22:01 Last Admin: 02/08/17 14:22 Dose: 40 meq Valsartan (Diovan Tab*) 160 mg PO DAILY [facility] Last Admin: 02/08/17 08:37 Dose: 160 mg Vital Signs 02/07/17 02/07/17 02/07/17 15:42 19:40 20:00 Temperature 97.6 F 97.4 F Pulse Rate 60 74 Respiratory 22 19 22 Rate Blood Pressure 144/51 170/64 (mmHg) O2 Sat by Pulse 95 95 Oximetry 02/07/17 02/08/17 02/08/17 23:31 03:54 04:38 Temperature 98.7 F 98.0 F Pulse Rate 66 63 64 Respiratory 20 20 20 Rate Blood Pressure 154/46 155/58 (mmHg) O2 Sat by Pulse 98 95 95 Oximetry 02/08/17 02/08/17 02/08/17 07:18 08:00 11:21 Temperature 98.9 F 98.9 F Pulse Rate 61 71 Respiratory 20 20 20 Rate Blood Pressure 186/50 144/37 (mmHg) O2 Sat by Pulse 91 95 Oximetry 02/08/17 15:19 Temperature 98.2 F Pulse Rate 80 Respiratory 18 Rate Blood Pressure 168/50 (mmHg) O2 Sat by Pulse 92 Oximetry Oxygen Devices in Use Now: Nasal Cannula Appearance: chronically ill appearing. much more alert. Eyes: No Scleral Icterus, PERRLA Ears/Nose/Mouth/Throat: NL Teeth, Lips, Gums, Mucous Membranes Moist Neck: NL Appearance and Movements; NL JVP Respiratory: Symmetrical Chest Expansion and Respiratory Effort, - - bilateral basilar rales Cardiovascular: NL Sounds; No Murmurs; No JVD, RRR Abdominal: NL Sounds; No Tenderness; No Distention Extremities: No Edema Skin: No Rash or Ulcers Neurological: - - oriented to name, hospital and reason for admission. Easier to understand. left foot drop slightly improved. 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 Lines/Tubes/Other Access: Clean, Dry and Intact [place] Result Diagrams: 02/05/17 08:15 02/08/17 07:47 Additional Lab and Data: Laboratory Results - last 24 hr 02/07/17 02/08/17 02/08/17 20:51 07:30 07:47 Sodium 137 Potassium 2.8 L Chloride 95 L Carbon Dioxide 35 H Anion Gap 7 BUN 12 Creatinine 0.61 Est GFR ( Amer) 119.3 Est GFR (Non-Af Amer) 92.8 BUN/Creatinine Ratio 19.7 Glucose 144 H POC Glucose (mg/dL) 129 H 150 H Calcium 8.6 Magnesium 1.4 L 02/08/17 02/08/17 11:46 16:30 Sodium Potassium Chloride Carbon Dioxide Anion Gap BUN Creatinine Est GFR ( Amer) Est GFR (Non-Af Amer) BUN/Creatinine Ratio Glucose POC Glucose (mg/dL) 221 H 208 H Calcium Magnesium Microbiology and Other Data: Microbiology 02/01/17 20:30 Urine Urine Culture - Final Escherichia Coli 02/02/17 01:40 Nasal Nasal Screen MRSA (PCR)([facility]) - Final Mrsa Negative Assess/Plan/Problems-Billing Assessment: 87 yo female PMH HTN, LBBB, VT, diastolic CHF p/w right cerebellar CVA. - Patient Problems (1) CVA (cerebral vascular accident) Current Visit: Yes Status: Acute Code(s): I63.9 - CEREBRAL INFARCTION, UNSPECIFIED SNOMED Code(s): 881326130 Comment: right cerbellar infarct, nonhemorraghic s/p TPA in ICU PT/OT SNF placement -> [facility], has re-accepted aspiration precautions plan remove castano ~4am aspirin 81mg atorvastatin 20mg appreciate neuro recs [employer]IC (2) HTN (hypertension) Current Visit: Yes Status: Acute Code(s): I10 - ESSENTIAL (PRIMARY) HYPERTENSION SNOMED Code(s): 79057128 Comment: valsartan 160mg daily hydralazine and labetalol IV prn if not tolerating po continue lasix 20mg IV bid (3) Tachypnea Current Visit: Yes Status: Acute Code(s): R06.82 - TACHYPNEA, NOT ELSEWHERE CLASSIFIED SNOMED Code(s): 156608961 Comment: lasix 20mg IV BID. BMP in AM aspiration precautions hx diastolic dysfunction. (4) Diastolic CHF Current Visit: Yes Status: Acute Code(s): I50.30 - UNSPECIFIED DIASTOLIC ( CONGESTIVE) HEART FAILURE SNOMED Code(s): 816609934 Comment: lasix as above. rales at bases (5) Dementia Current Visit: Yes Status: Acute Code(s): F03.90 - UNSPECIFIED DEMENTIA WITHOUT BEHAVIORAL DISTURBANCE SNOMED Code(s): 18200927 Status and Disposition: medicine inpatient. [facility] accepted, likely d/c on 02/09. Attending: Ruben Shaw
[2017-02-08] MEDS: Atorvastatin* 20 MG TAB PO SCH (16:52)
[2017-02-08] MEDS: Metoprolol Succinate XL TAB* 25 MG PO SCH (16:52)
--- NOTE | 2017-02-08 22:25 | CONSULT ---
Palliative / Hospice Consult Ordering Provider: Ruben Shaw - Subjective Code Status: Full Code-Needs Follow Up Advance Directives Location: No Advance Directives MOLST Part A Completed: Yes - DNR Date: 02/08/17 MOLST Part E Completed:: Yes - DNI, comfort measures, no feeding tube Date: 02/08/17 HCP Completed: Yes - daughter Nohelia Stauffer - History or Present Illness History or Present Illness: This 87 year old woman with a history of LBBB, HTN and VTach was hospitalized on 02/01 after experiencing a right cerebellar CVA, and was initially quite obtunded. She has had neurologic consultation from both Drs. Cohen and Ry, both of whom were cautiously optimistic about the possibility of improvement. She underwent a swallow evaluation that was not diagnostic of significant dysphagia. She has become much more responsive now and is able to speak, although she is confused and disoriented. Her daughter and HCP was given a MOLST form but has been unable or unwilling to fill it out on her own, and so palliative consultation was requested. Lab Values: Abnormal Lab Results 02/08/17 02/08/17 02/08/17 07:30 07:47 11:46 Sodium 137 Potassium 2.8 L Chloride 95 L Carbon Dioxide 35 H Anion Gap 7 BUN 12 Creatinine 0.61 Est GFR ( Amer) 119.3 Est GFR (Non-Af Amer) 92.8 BUN/Creatinine Ratio 19.7 Glucose 144 H POC Glucose (mg/dL) 150 H 221 H Calcium 8.6 Magnesium 1.4 L 02/08/17 02/08/17 16:30 20:25 Sodium Potassium Chloride Carbon Dioxide Anion Gap BUN Creatinine Est GFR ( Amer) Est GFR (Non-Af Amer) BUN/Creatinine Ratio Glucose POC Glucose (mg/dL) 208 H 174 H Calcium Magnesium Laboratory Last Values WBC 8.9 10^3/ul (3.5-10.8) 02/05/17 08:15 RBC 3.85 10^6/ul (4.0-5.4) L 02/05/17 08:15 Hgb 12.2 g/dl (12.0-16.0) 02/05/17 08:15 Hct 37 % (35-47) 02/05/17 08:15 MCV 96 fL (80-97) 02/05/17 08:15 MCH 32 pg (27-31) H 02/05/17 08:15 MCHC 33 g/dl (31-36) 02/05/17 08:15 RDW 14 % (10.5-15) 02/05/17 08:15 Plt Count 152 10^3/ul (150-450) 02/05/17 08:15 MPV 9 um3 (7.4-10.4) 02/05/17 08:15 Neut % (Auto) 65.0 % (38-83) 02/01/17 17:18 Lymph % (Auto) 26.0 % (25-47) 02/01/17 17:18 Tift % (Auto) 7.1 % (1-9) 02/01/17 17:18 Eos % (Auto) 1.0 % (0-6) 02/01/17 17:18 Baso % (Auto) 0.9 % (0-2) 02/01/17 17:18 Absolute Neuts (auto) 4.3 10^3/ul (1.5-7.7) 02/01/17 17:18 Absolute Lymphs (auto) 1.7 10^3/ul (1.0-4.8) 02/01/17 17:18 Absolute Monos (auto) 0.5 10^3/ul (0-0.8) 02/01/17 17:18 Absolute Eos (auto) 0.1 10^3/ul (0-0.6) 02/01/17 17:18 Absolute Basos (auto) 0.1 10^3/ul (0-0.2) 02/01/17 17:18 Absolute Nucleated RBC 0.01 10^3/ul 02/01/17 17:18 Nucleated RBC % 0.1 02/01/17 17:18 INR (Anticoag Therapy) 0.94 (0.89-1.11) 02/01/17 17:18 Sodium 137 mmol/L (133-145) 02/08/17 07:47 Potassium 2.8 mmol/L (3.5-5.0) L 02/08/17 07:47 Chloride 95 mmol/L (101-111) L 02/08/17 07:47 Carbon Dioxide 35 mmol/L (22-32) H 02/08/17 07:47 Anion Gap 7 mmol/L (2-11) 02/08/17 07:47 BUN 12 mg/dL (6-24) 02/08/17 07:47 Creatinine 0.61 mg/dL (0.51-0.95) 02/08/17 07:47 Est GFR ( Amer) 119.3 (>60) 02/08/17 07:47 Est GFR (Non-Af Amer) 92.8 (>60) 02/08/17 07:47 BUN/Creatinine Ratio 19.7 (8-20) 02/08/17 07:47 Glucose 144 mg/dL (70-100) H 02/08/17 07:47 POC Glucose (mg/dL) 174 mg/dL (70-100) H 02/08/17 20:25 Hemoglobin A1c 8.2 % (4.0-5.6) H 02/01/17 17:18 Lactic Acid 0.7 mmol/L (0.5-2.0) 02/01/17 17:18 Calcium 8.6 mg/dL (8.6-10.3) 02/08/17 07:47 Magnesium 1.4 mg/dL (1.9-2.7) L 02/08/17 07:47 Total Bilirubin 0.50 mg/dL (0.2-1.0) 02/01/17 17:18 AST 18 U/L (13-39) 02/01/17 17:18 ALT 12 U/L (7-52) 02/01/17 17:18 Alkaline Phosphatase 53 U/L (34-104) 02/01/17 17:18 Troponin I 0.03 ng/mL (<0.04) 02/01/17 17:18 Total Protein 6.6 g/dL (6.4-8.9) 02/01/17 17:18 Albumin 3.0 g/dL (3.2-5.2) L 02/05/17 08:15 Globulin 2.8 g/dL (2-4) 02/01/17 17:18 Albumin/Globulin Ratio 1.4 (1-3) 02/01/17 17:18 Triglycerides 80 mg/dL 02/01/17 17:18 Cholesterol 241 mg/dL 02/01/17 17:18 LDL Cholesterol 167 mg/dL 02/01/17 17:18 HDL Cholesterol 57.6 mg/dL 02/01/17 17:18 Urine Color Yellow 02/01/17 20:30 Urine Appearance Clear 02/01/17 20:30 Urine pH 5.0 (5-9) 02/01/17 20:30 Ur Specific [place] 1.014 (1.010-1.030) 02/01/17 20:30 Urine Protein 1+(30 mg/dl) (Negative) H 02/01/17 20:30 Urine Ketones 1+ (Negative) H 02/01/17 20:30 Urine Blood Negative (Negative) 02/01/17 20:30 Urine Nitrate Negative (Negative) 02/01/17 20:30 Urine Bilirubin Negative (Negative) 02/01/17 20:30 Urine Urobilinogen Negative (Negative) 02/01/17 20:30 Ur Leukocyte Esterase Negative (Negative) 02/01/17 20:30 Urine WBC (Auto) Trace(0-5/hpf) (Absent) 02/01/17 20:30 Urine RBC (Auto) Trace(0-2/hpf) (Absent) 02/01/17 20:30 Ur Squamous Epith Cells Present (Absent) H 02/01/17 20:30 Urine Bacteria 1+ (Absent) H 02/01/17 20:30 Urine Glucose 1+(50 mg/dl) (Negative) H 02/01/17 20:30 - Objective Active Medications: Acetaminophen (Tylenol Supp*) 650 mg ID Q6H PRN PRN Reason: FEVER/PAIN Last Admin: 02/05/17 20:56 Dose: 650 mg Aspirin (Aspirin Low Dose Tab*) 81 mg PO DAILY [facility] Last Admin: 02/08/17 08:37 Dose: 81 mg Atorvastatin Calcium (Lipitor*) 20 mg PO 1700 [facility] Last Admin: 02/08/17 16:52 Dose: 20 mg Docusate Sodium (Colace Cap*) 100 mg PO BID PRN PRN Reason: CONSTIPATION Enoxaparin Sodium (Lovenox(*)) 40 mg SUBCUT DAILY [facility] Last Admin: 02/08/17 08:36 Dose: 40 mg Famotidine (Pepcid Iv*) 20 mg IV SLOW PU DAILY [facility] Last Admin: 02/08/17 08:37 Dose: 20 mg Furosemide (Lasix Iv*) 20 mg IV BID [facility] Stop: 02/09/17 21:01 Last Admin: 02/08/17 20:51 Dose: 20 mg Hydralazine HCl (Apresoline Iv*) 10 mg IV SLOW PU Q4H PRN PRN Reason: SBP > 180 Last Admin: 02/08/17 08:37 Dose: 10 mg Insulin Human Lispro (Humalog*) 0 units SUBCUT ACHS HERB PRN Reason: Protocol Last Admin: 02/08/17 20:50 Dose: 2 units Labetalol HCl (Trandate Iv*) 20 mg IV PUSH Q4H PRN PRN Reason: BLOOD PRESSURE Last Admin: 02/08/17 21:42 Dose: 20 mg Lorazepam (Ativan Inj*) 1 mg IV PUSH Q6H PRN PRN Reason: ANXIETY Last Admin: 02/07/17 03:41 Dose: 1 mg Metoprolol Succinate (Toprol Xl Tab*) 50 mg PO QAM [facility] Last Admin: 02/08/17 08:37 Dose: 50 mg Metoprolol Succinate (Toprol Xl Tab*) 25 mg PO QPM [facility] Last Admin: 02/08/17 16:52 Dose: 25 mg Ondansetron HCl (Zofran Inj*) 4 mg IV Q6H PRN PRN Reason: NAUSEA Valsartan (Diovan Tab*) 160 mg PO DAILY [facility] Last Admin: 02/08/17 08:37 Dose: 160 mg Vital Signs: Vital Signs: Temp Pulse Resp BP Pulse Ox 98.4 F 88 19 185/65 97 02/08/17 19:35 02/08/17 19:35 02/08/17 19:35 02/08/17 21:06 02/08/17 19:35 Patient Weight: Weight 143 lb 12.8 oz Intake and Output: Intake & Output 02/06/17 02/07/17 02/08/17 02/09/17 06:59 06:59 06:59 06:59 Intake Total 860 1172 280 940 Output Total 510 2400 2825 1200 Balance 209 -8601 -7244 -470 Weight 146 lb 12.8 oz 143 lb 143 lb 12.8 oz Intake: IV Fluids 475 972 NS (0.9%) 475 972 IVPB 105 NS (0.9%) 105 Oral 280 200 280 940 Output: Urine 600 [place] 510 2400 2225 1200 Other: Date of Last Bowel 01/03/17 Movement # Bowel Movements 1 1 Estimated Stool Amount Medium Medium Small ADLs: Meal Record Start: 02/02/17 00: 04 Freq: 09,13,18 Status: Complete Protocol: Created 02/02/17 00:04 System (Rec: 02/02/17 00:04 System ICU-C25) Document 02/02/17 09:00 [id number] (Rec: 02/02/17 12:16 [id number] ICU-M21) Document 02/02/17 13:00 [id number] (Rec: 02/02/17 13:07 RBA5533 ICU-C15) Document 02/02/17 17:25 BKU1384 (Rec: 02/02/17 17:25 [id number] ICU-M21) Document 02/03/17 18:00 PXO7010 (Rec: 02/03/17 18:26 [id number] ICU-M26) Document 02/04/17 09:00 OQY8650 (Rec: 02/04/17 09:03 KSS2157 ICU-C12) Document 02/04/17 13:00 RRF7999 (Rec: 02/04/17 15:15 GSC5850 ICU-C12) Document 02/04/17 18:00 DLB1761 (Rec: 02/04/17 22:50 SVB0214 ICU-C10) Document 02/05/17 09:00 CRF8421 (Rec: 02/05/17 11:12 OYR3760 ICU-M21) Document 02/05/17 13:00 PLY9643 (Rec: 02/05/17 18:40 XEM7675 ICU-C10) ADLs: Meal Record Start: 02/05/17 20: 02 Freq: DAILY@0900,1400,1800 Status: Active Protocol: Created 02/05/17 20:02 YXH7083 (Rec: 02/05/17 20:02 ZKJ7425 TELE-C02) Document 02/05/17 22:00 YAU1841 (Rec: 02/05/17 22:42 STH0351 TELE-C05) Document 02/06/17 09:11 ORJ5868 (Rec: 02/06/17 09:11 ZJI8635 TELE-C01) Document 02/06/17 13:34 KOT9329 (Rec: 02/06/17 13:34 CTY8610 TELE-C01) Document 02/06/17 18:00 UGI5580 (Rec: 02/06/17 20:51 OND7803 TELE-C01) Document 02/07/17 09:00 AKT9757 (Rec: 02/07/17 09:56 PUN5808 TELE-C09) Document 02/07/17 14:00 ZIA7932 (Rec: 02/07/17 15:24 NYC6716 TELE-C09) Document 02/07/17 18:00 RYM0306 (Rec: 02/07/17 18:14 UIV5611 TELE-C13) Document 02/08/17 09:45 KTO0570 (Rec: 02/08/17 09:45 AUQ8703 TELE-C07) Document 02/08/17 13:23 EVW2470 (Rec: 02/08/17 13:23 OJB6356 TELE-C07) Document 02/08/17 18:00 WNN5412 (Rec: 02/08/17 18:50 LTI6898 TELE-C01) Intake and Output Start: 02/01/17 19: 01 Freq: 06,14,2200 Status: Complete Protocol: Created 02/01/17 19:02 NTV7597 (Rec: 02/01/17 19:02 BKG GURWINDER-BG10) Document 02/02/17 01:37 VBN2274 (Rec: 02/02/17 01:37 BTH7781 ICU-M26) Intake and Output Start: 02/02/17 00: 04 Freq: 06,14,22 Status: Cancelled Protocol: Created 02/02/17 00:04 System (Rec: 02/02/17 00:04 System ICU-C25) Intake and Output Start: 02/02/17 02: 00 Freq: 06,10,14,18,2200,0200 Status: Complete Protocol: Created 02/02/17 02:20 [id number] (Rec: 02/02/17 02:20 BKG GURWINDER-BG10) Document 02/02/17 06:00 PJF1051 (Rec: 02/02/17 06:14 XQE8617 ICU-M26) Document 02/02/17 10:00 HDS8075 (Rec: 02/02/17 11:24 MPF5094 ICU-M21) Document 02/02/17 14:00 FYM7913 (Rec: 02/02/17 14:20 INH8172 ICU-M21) Document 02/03/17 00:21 CRV7968 (Rec: 02/03/17 00:22 CJZ1188 ICU-M21) Document 02/03/17 04:00 QWS1097 (Rec: 02/03/17 05:36 SYV8214 ICU-C15) Document 02/03/17 10:22 XST7019 (Rec: 02/03/17 10:22 GIH5167 ICU-M26) Document 02/03/17 14:00 RKI1208 (Rec: 02/03/17 14:18 RII2895 ICU-M21) Document 02/03/17 18:30 IEP7854 (Rec: 02/03/17 18:30 ZWH0959 ICU-M26) Document 02/03/17 22:00 CVP9745 (Rec: 02/03/17 22:48 KHB9984 ICU-C12) Document 02/04/17 00:30 WHW7164 (Rec: 02/04/17 02:41 ZIX2458 ICU-C12) Document 02/04/17 02:39 JYI9469 (Rec: 02/04/17 02:40 IHP7197 ICU-C15) Document 02/04/17 05:37 UMX3776 (Rec: 02/04/17 05:37 AOQ3740 ICU-C15) Document 02/04/17 11:21 UMA1822 (Rec: 02/04/17 11:22 ZFS7066 ICU-C12) Document 02/04/17 15:38 GZC2291 (Rec: 02/04/17 15:38 PHU5688 ICU-C12) Document 02/04/17 18:43 TOX9762 (Rec: 02/04/17 18:47 HBK1607 ICU-C12) Document 02/04/17 22:00 RKD3785 (Rec: 02/04/17 22:55 BBG8673 ICU-C10) Document 02/05/17 02:00 JEM0920 (Rec: 02/05/17 02:21 YGR9810 ICU-C10) Document 02/05/17 06:00 JVL3224 (Rec: 02/05/17 06:08 CIG1651 ICU-M21) Document 02/05/17 10:00 AVL7655 (Rec: 02/05/17 11:16 UPC0870 ICU-M21) Document 02/05/17 14:00 BJP6065 (Rec: 02/05/17 14:48 ISW0065 ICU-M21) Document 02/05/17 18:00 EVO9895 (Rec: 02/05/17 18:39 UDF5140 ICU-C10) Document 02/05/17 22:00 PSH5746 (Rec: 02/05/17 22:39 ZVP6695 TELE-C05) Intake and Output Start: 02/05/17 20: 02 Freq: DAILY@0600,1400,2200 Status: Active Protocol: Created 02/05/17 20:02 IIJ7675 (Rec: 02/05/17 20:02 ODP2665 TELE-C02) Document 02/05/17 22:00 MME3477 (Rec: 02/05/17 22:39 JTD1249 TELE-C05) Document 02/06/17 05:56 PNU6270 (Rec: 02/06/17 05:57 QRH2447 TELE-C34) Document 02/06/17 13:34 NHL2015 (Rec: 02/06/17 13:34 IEB2992 TELE-C01) Document 02/06/17 14:01 MTC1802 (Rec: 02/06/17 14:01 WWJ3591 TELE-C01) Document 02/06/17 22:00 TFN6113 (Rec: 02/06/17 22:45 NLW4862 TELE-C08) Document 02/07/17 05:39 PAS6263 (Rec: 02/07/17 05:40 QYF9501 TELE-C05) Document 02/07/17 14:00 JGI2905 (Rec: 02/07/17 15:24 CUM1461 TELE-C09) Document 02/07/17 22:00 DZX9257 (Rec: 02/07/17 22:27 LAM4913 TELE-C01) Document 02/08/17 06:00 EWU0744 (Rec: 02/08/17 07:34 DII3600 TELE-C01) Document 02/08/17 13:52 JHW1212 (Rec: 02/08/17 13:52 LRF8153 TELE-C07) Document 02/08/17 22:00 ZCO9974 (Rec: 02/08/17 22:08 WUJ1828 TELE-C01) General Impression: Pleasant, alert but not oriented, lying in bed and conversant, able to eat and drink independently. Eyes: No Scleral Icterus, PERRLA Ears/Nose/Mouth/Throat: NL Teeth, Lips, Gums, Mucous Membranes Moist Neck: NL Appearance and Movements; NL JVP Cardiovascular: NL Sounds; No Murmurs; No JVD, RRR Respiratory: Symmetrical Chest Expansion and Respiratory Effort Abdominal: NL Sounds; No Tenderness; No Distention Extremities: No Edema Neurological: - - Oriented x 1 (name). Left foot drop slightly improved. Construction Management Assistant strength 4+/5 - Assessment Assessment: This patient experienced a significant CVA, but is improving. It is not possible to anticipate how well she will function eventually. She is able to eat at present, and seems to be more conversant and alert each day. She is not currently a candidate for hospice. She has no other palliative needs at this time. She is not able to discuss advanced directives, so I spent 40 minutes with her daughter and HCP, Nohelia Stauffer, explaining the MOLST form and the procedures it addresses. The daughter chose DNR/DNI status for her mother and would not want a feeding tube placed. She was clearly working in her mother's best interests and felt confident her mother would have made the same choices. The patient is scheduled to be transferred to [facility] in the next day or two. Thank you for requesting a palliative consult. - Plan Consult Plan (MU): Palliative - Time On Unit Date of Evaluation: 02/08/17 Hospice Consult Time in: 11:45 Hospice Consult Time Out: 12:30 Hospice Consult Time Total: 45
[2017-02-09] MEDS: hydrALAZINE IV* 20 MG/ML VIAL IV SLOW PU PRN (00:05)
[2017-02-09 08:31] VITALS: BP 176/59
[2017-02-09] MEDS: Famotidine IV* 10 MG/ML 2 ML (20 mg) IV SLOW PU SCH (08:35)
[2017-02-09] MEDS: Enoxaparin(*) 40 MG/0.4 ML SYR SUBCUT SCH (08:35)
[2017-02-09] MEDS: Insulin LISPRO* 1 UNITS UNIT SUBCUT SCH (08:36)
[2017-02-09] MEDS: Furosemide IV* 10 MG/ML 2 ML VIAL (20 MG) IV SCH (08:36)
[2017-02-09] MEDS: Valsartan TAB* 160 MG PO SCH (09:49)
[2017-02-09] MEDS: Metoprolol Succinate XL TAB* 50 MG PO SCH (09:49)
[2017-02-09] MEDS: Aspirin Low Dose CHEW TAB* 81 MG PO SCH (09:49)
[2017-02-09 09:54] LABS: Hematocrit 39 % (35-47); Hemoglobin 13.1 g/dl (12.0-16.0); Mean Corpuscular HGB Conc 34 g/dl (31-36); Mean Corpuscular Hemoglobin 32 pg (27-31); Mean Corpuscular Volume 94 fL (80-97); Mean Platelet Volume 8 um3 (7.4-10.4); Red Blood Count 4.09 10^6/ul (4.0-5.4); Red Cell Distribution Width 14 % (10.5-15); White Blood Count 7.3 10^3/ul (3.5-10.8)
[2017-02-09 10:08] LABS: BUN/Creatinine Ratio 17.5 (8-20); Calcium 8.9 mg/dL (8.6-10.3); EGFR Non-African American 89.4 (>60); Magnesium 1.9 mg/dL (1.9-2.7); Potassium 3.7 mmol/L (3.5-5.0)
[2017-02-09] MEDS ORDERED: Potassium Chloride LIQUID* 20 MEQ PACKET PO SCH (11:00)
--- NOTE | 2017-02-09 12:15 | DS ---
DATE OF ADMISSION: 02/01/2017. DATE OF DISCHARGE: 02/09/2017. ADMITTING PROVIDER: Dr. Vikas Douglas. ATTENDING PHYSICIAN: Dr. Ruben Shaw and Dr. Rey Nuno, Violin Teacher. NEUROLOGIST: Dr. Juan Raza and Dr. Deven Roque. CHIEF COMPLAINT: Garbled speech. PRINCIPAL DIAGNOSIS: CVA of the right cerebellum extending into the right cerebellar peduncle. PAST MEDICAL HISTORY: Ventricular tachycardia, mild aortic stenosis, left bundle branch block, diastolic CHF, hypertension, hyperlipidemia, mild dementia. HISTORY OF PRESENT ILLNESS AND HOSPITAL COURSE: Ms. Nohelia Huynh is an 87-year- old female with a past medical history as above living at [facility] when her son came to pick her up he found that her speech was garbled. EMS was called and she presented to the [facility] emergency room. Initial CT of the head showed no acute intracranial abnormality and no hemorrhage. However, she had an additional episode of garbled speech in the emergency room. She had a repeat head CT which noted a hypodense focus external to the left frontal lobe most consistent with a partially calcified meningioma; it was 11 x 5 mm. No definitive extra-axial hemorrhage was identified. She had a CTA of the head and neck which showed the superior most intracranial portion of the left vertebral artery was extremely diminutive; there were at least two filling defects prior to the confluence into the basilar artery; the left posterior inferior cerebellar artery was also extremely diminutive and/or absent in portions compared to the contralateral right side; she had mixed attenuation atherosclerosis at the bilateral carotid bulbs with 33 percent stenosis on the right and 50 percent stenosis on the left. Of note, she was hypertensive urgency with blood pressures 220/112 and her symptoms had begun at 4:00 the day of admission and the NIH stroke scale on the right with the ED had been 0, and at 1750 had this change in mental status and developed left-sided facial droop and right- sided weakness in the upper and lower extremities and the NIH stroke scale at the time was 6. She was given Hydralazine and Labetalol and [facility] neurologist, Dr. Hilliard, recommended TPA. Repeat CT showed no evidence of bleeding. She had developed left upper extremity flaccid. A third head CT was obtained showing no evidence of bleeding. She was transported from the ED to the ICU. With Dr. Roque, neurologist, she had difficulty with finger to nose pointing on the right and heel to hamlin on the right concerning for right cerebellar infarction. She had some pronator drift on the right arm and leg and very subtle left lower facial droop at the time. Of note, she has a pacemaker and is unable to obtain an MRI. Repeat brain CT without contrast on February 02 showed evolution of the right cerebellum infarction extending into the right cerebellar peduncle; no evidence of acute intracranial hemorrhage. The patient's case was taken over by Dr. Raza, Neurology. Her ability to speak gradually improved. She was moving extremities with some power on February 05. There were some discussions between Dr. Nuno, Violin Teacher, with family about not pursuing any further imaging or work- up. The patient was eventually made DNR/DNI after her daughter, Nohelia, talked to Palliative Care and social media strategist. She was evaluated by speech language pathology and was able to handle a mechanical ground solid texture with extra sauce gravies, pureed vegetables along with thin liquids. Her blood pressures were elevated, especially when she was not able to take p.o. meds initially and required IV Hydralazine on occasion. These improved once able to take some of her home meds. She was considered stable for discharge from the ICU to the floor on February 05. She was noted to have some tachypnea, required three liters of oxygen initially and was diuresed after evidence of rales at the bases. She had good urine output, 1.8 liters on February 08 and 2.5 liters on February 07. Oxygen on discharge 2 liters. The patient continued to work with physical therapy, was very difficult to arouse after receiving some Ativan overnight on 4:00 a.m. Sunday, February 07. That has been discontinued. The patient will need extensive physical therapy at [facility]. She should be on aspiration precautions with the above noted diet. Her prognosis is guarded given the size of the stroke. She was noted to be moving both upper extremities with good strength. She does have, on the date of discharge, a foot drop on the left side that actually improved between February 08 and February 09. She was able to wiggle a toe. It is unclear how much of it is following commands versus strength deficit. With physical therapy, she had been able to sit on the side of the bed for about five seconds, but was requiring max assist with transfers. DISCHARGE MEDICATIONS: 1. Aspirin 81 mg p.o. daily. 2. Atorvastatin 20 mg daily. 3. Valsartan 160 mg p.o. b.i.d. 4. Vitamin D3 daily. 5. Metoprolol Succinate 50 mg p.o. q.a.m. and 25 mg p.o. q.p.m. 6. Metformin 500 mg p.o. daily. 7. Lasix 20 mg p.o. daily for 5 days. The patient should have a BNP checked between 3 and 5 days, along with magnesium level. 8. Diltiazem 180 mg p.o. daily. DISCHARGE DIET: Mechanical ground solids with extra sauces, gravies, fruits and vegetable, thin liquids, aspiration precautions. ACTIVITY LEVEL: No restrictions, requiring max assist and extensive physical therapy. FOLLOW-UP: Please follow-up with providers at [facility] and then eventually Dr. Ahmadi upon discharge if she leaves [facility] within three days. Follow-up with Dr. Raza if the patient's family has questions. Speech language services may also be helpful in the outpatient environment. Time spent on this discharge was 45 minutes. [id number]/[facility] #: [id number] [facility] CENTERKirsten
== END 2017-02-09 11:55 | DRG 62 ==
LOC: ED 16:42 → ICU 23:36 → MEDTELE 02-05 20:11
PROVIDERS: ADMIT Internal Medicine Critical Care Medicine; ATTEND Internal Medicine
DX: I63.9 Cerebral infarction, unspecified (principal); I47.2 Ventricular tachycardia; I50.30 Unspecified diastolic (congestive) heart failure; G81.91 Hemiplegia, unspecified affecting right dominant side; E11.9 Type 2 diabetes mellitus without complications; R47.01 Aphasia; F03.90 Unspecified dementia, unspecified severity, without behavioral disturbance, psychotic disturbance, mood disturbance, and anxiety; I35.0 Nonrheumatic aortic (valve) stenosis; I44.7 Left bundle-branch block, unspecified; I65.02 Occlusion and stenosis of left vertebral artery; D32.0 Benign neoplasm of cerebral meninges; R29.700 NIHSS score 0; R47.89 Other speech disturbances; I16.0 Hypertensive urgency; R29.810 Facial weakness; I10 Essential (primary) hypertension; E78.5 Hyperlipidemia, unspecified; Z95.0 Presence of cardiac pacemaker; Z98.42 Cataract extraction status, left eye; Z98.41 Cataract extraction status, right eye; Z88.0 Allergy status to penicillin; Z91.018 Allergy to other foods; Z82.3 Family history of stroke; Z82.49 Family history of ischemic heart disease and other diseases of the circulatory system; Z79.82 Long term (current) use of aspirin; Z79.84 Long term (current) use of oral hypoglycemic drugs; Z66 Do not resuscitate; R41.0 Disorientation, unspecified; R06.82 Tachypnea, not elsewhere classified
CPT/HCPCS: 36415; 70450; 70496; 70498; 71020; 80048; 80053; 80061; 81003; 81015; 82040; 83036; 83605; 83735; 83880; 84484; 85025; 85027; 85610; 87077; 87086; 87186; 87641; 93005; 93306; 94640; 94760; A9270-GY; J0360; J1650; J1940; J2060; J2405; J2765; J2997; J3475; J3480; J3490; Q9967

== ENCOUNTER 2017-05-12 12:13 | Inpatient (IN) | payer MEDICARE ==
[2017-05-12] MEDS ORDERED: cefTRIAXone(*) 1 GM in NS 0.9% 50 ML* 50 ML IVPB ONE (12:24)
[2017-05-12] MEDS: NS 0.9% 1000 ML*IV.FLUID IV ONE (12:44)
[2017-05-12 12:52] LABS: ABS Basophils 0 10^3/ul (0-0.2); ABS Eosinophils 0 10^3/ul (0-0.6); ABS Lymphocytes 1.3 10^3/ul (1.0-4.8); ABS Monocytes 1.5 10^3/ul (0-0.8); ABS Neutrophils 16.1 10^3/ul (1.5-7.7); ABS Nucleated RBC 0 10^3/ul; Eosinophil % 0 % (0-6); Hematocrit 38 % (35-47); Hemoglobin 12.4 g/dl (12.0-16.0); Lymphocyte % 6.6 % (25-47); Mean Corpuscular HGB Conc 33 g/dl (31-36); Mean Corpuscular Hemoglobin 31 pg (27-31); Mean Corpuscular Volume 95 fL (80-97); Mean Platelet Volume 8 um3 (7.4-10.4); Nucleated Red Blood Cells % 0; Platelet Count 342 10^3/ul (150-450); Red Blood Count 3.99 10^6/ul (4.0-5.4); Red Cell Distribution Width 15 % (10.5-15); White Blood Count 18.9 10^3/ul (3.5-10.8)
[2017-05-12 12:59] LABS: Urine Appearance Turbid; Urine Blood 3+ (Negative); Urine Color Yellow; Urine Ketones Negative (Negative); Urine Protein 2+(100 mg/dL) (Negative); Urine Urobilinogen Negative (Negative)
[2017-05-12 13:01] LABS: INR 0.96 (0.77-1.02)
[2017-05-12 13:15] LABS: EGFR Non-African American 36.8 (>60)
--- NOTE | 2017-05-12 13:16 | RAD ---
HISTORY: Altered mental status COMPARISONS: February 02, 2017 TECHNIQUE: Multiple contiguous axial CT scans were obtained of the head without intravenous contrast. FINDINGS: HEMORRHAGE/INFARCT: There is no hemorrhage or acute infarct. MASSES/SHIFT: There is no mass or shift. EXTRA-AXIAL SPACES: There are no extra-axial fluid collections. SULCI AND VENTRICLES: There is diffuse and proportional enlargement of the sulci and ventricles. CEREBRUM: There is a chronic lacunar infarct of the right basal ganglia. There are stable dystrophic calcification of the left frontal lobe. There is some attenuation of the periventricular and subcortical white matter. BRAINSTEM: There are no focal parenchymal abnormalities. CEREBELLUM: There is hypoattenuation consistent with early encephalomalacia of the right superior cerebellum corresponding to the infarct noted on the previous examination. VESSELS: The vessels are grossly normal. PARANASAL SINUSES: The paranasal sinuses are clear. ORBITS: The orbits are unremarkable. BONES AND SOFT TISSUE: No bone or soft tissue abnormalities are noted. OTHER: None IMPRESSION: 1. NO ACUTE INTRACRANIAL PATHOLOGY. 2. CHRONIC SMALL VESSEL ISCHEMIC CHANGES. 3. CHRONIC RIGHT CEREBELLAR INFARCT.
--- NOTE | 2017-05-12 13:25 | RAD ---
HISTORY: Altered mental status COMPARISONS: February 01, 2017 VIEWS: 1: frontal portable view of the chest at 1:04 PM FINDINGS: LINES AND TUBES: A left-sided pacemaker is noted CARDIOMEDIASTINAL SILHOUETTE: The cardiomediastinal silhouette is normal for portable technique. PLEURA: The costophrenic angles are sharp. No pleural abnormalities are noted. LUNG PARENCHYMA: The lungs are clear. ABDOMEN: The upper abdomen is clear. There is no subphrenic gas. BONES AND SOFT TISSUES: Mild degenerative changes are noted. IMPRESSION: NO ACTIVE CARDIOPULMONARY DISEASE.
[2017-05-12] MEDS ORDERED: Dextrose 50% Syringe 50 ML* 25 GM/50 ML SYRINGE IV PUSH PRN (14:01)
[2017-05-12] MEDS: Heparin VIAL(*) 5000 UNITS/ML VIAL (FIVE THOUSAND) SUBCUT SCH ×2 (15:12→21:04)
[2017-05-12] MEDS: NS 0.9% 1000 ML* 1,000 ML IV SCH (15:12)
--- NOTE | 2017-05-12 15:37 | ED ---
Calderon Desouza Sixian, scribed for Freddie Piña MD on 05/12/17 at 1235 . Altered Mental Status - HPI Summary HPI Summary: The HPI is limited due to unresponsiveness and dementia. This patient is an 87 year old F BIBA to ED with a chief complaint of altered mental status since 1215 today. The pt is unresponsive except to painful stimuli. Symptoms aggravated and alleviated by nothing. - History Of Current Complaint Chief Complaint: EDAltMentalStatus Stated Complaint: AMS Time Seen by Provider: 05/12/17 12:17 Hx From Patient Unobtainable Due To: Dementia - Allergies/Home Medications Allergies/Adverse Reactions: Allergies Allergy/AdvReac Type Severity Reaction Status Date / Time Penicillins Allergy Intermediate Hives Verified 05/12/17 14:12 wheat Allergy Mild Rash And Verified 05/12/17 14:12 Itching Home Medications: Home Medications Acetaminophen [Acetaminophen Extra Strength] 1,000 mg PO Q8H PRN 05/12/17 [ History Confirmed 05/12/17] Diltiazem CD CAP* [Cardizem CD CAP*] 180 mg PO DAILY 05/12/17 [History Confirmed 05/12/17] Insulin GLARGINE(*) [Lantus(*)] 10 units SUBCUT DAILY 05/12/17 [History Confirmed 05/12/17] Insulin LISPRO* [HumaLOG*] 4 units SUBCUT BID PRN 05/12/17 [History Confirmed ] Metoprolol Tartrate TAB* [Lopressor TAB*] 37.5 mg PO BID 05/12/17 [History Confirmed 05/12/17] Senna/Docusate (NF) [Sennokot-S] 2 tab PO BEDTIME 05/12/17 [History Confirmed ] PMH/Surg Hx/FS Hx/Imm Hx Endocrine/Hematology History: Reports: Hx Diabetes - type 2 Cardiovascular History: Reports: Hx Cardiomegaly, Hx Coronary Artery Disease, Hx Hypercholesterolemia, Hx Hypertension, Hx Pacemaker/ICD, Other Cardiovascular Problems/Disorders - HLD Sensory History: Reports: Hx Cataracts, Hx Contacts or Glasses, Hx Glaucoma Denies: Hx Hearing Aid Opthamlomology History: Reports: Hx Cataracts, Hx Contacts or Glasses, Hx Glaucoma Neurological History: Reports: Hx Dementia - mild - Surgical History Surgery Procedure, Year, and Place: pacemaker= 2010 cataracts 2014 Infectious Disease History: Unable to Obtain/Confirm Infectious Disease History: Denies: Traveled Outside the [place] in Last 30 Days - Family History Known Family History: Positive: Other - Mother: CVA - Social History Alcohol Use: None Substance Use Type: Reports: None Smoking Status (MU): Never Smoked Tobacco Type: Cigarettes Review of Systems - ROS Summary Review of Systems Summary: ROS is limited due to dementia. Negative: Fever All Other Systems Reviewed And Are Negative: Yes Physical Exam - Summary Physical Exam Summary: PE is limited due to dementia. General: well-appearing, no pain distress, obtunded Skin: warm, color reflects adequate perfusion, dry Head: normal Eyes: EOMI, HAMZAH ENT: normal, dry oral mucous Neck: supple, nontender Respiratory: CTA, breath sounds present Cardiovascular: RRR Abdomen: soft, nontender Bowel: present GIGU: [place] present, cloudy urine Musculoskeletal: normal, strength/ROM intact Neurological: normal, sensory/motor intact, A&O x3 Psychological: affect/mood appropriate Triage Information Reviewed: Yes Vital Signs On Initial Exam: Initial Vitals Temp Pulse Resp BP Pulse Ox 99.2 F 92 17 125/50 100 05/12/17 12:15 05/12/17 12:15 05/12/17 12:15 05/12/17 12:15 05/12/17 12:15 Vital Signs Reviewed: Yes Completion Of Physical Exam Limited Due To: Dementia, Level 5 Diagnostics - Vital Signs Vital Signs Temp Pulse Resp BP Pulse Ox 05/12/17 12:15 99.2 F 92 17 125/50 100 - Laboratory Lab Results: Lab Results 05/12/17 05/12/17 05/12/17 Range/Units 12:32 12:32 12:32 WBC 18.9 H (3.5-10.8) 10^3/ul RBC 3.99 L (4.0-5.4) 10^6/ul Hgb 12.4 (12.0-16.0) g/dl Hct 38 (35-47) % MCV 95 (80-97) fL MCH 31 (27-31) pg MCHC 33 (31-36) g/dl RDW 15 (10.5-15) % Plt Count 342 (150-450) 10^3/ul MPV 8 (7.4-10.4) um3 Neut % (Auto) 85.2 H (38-83) % Lymph % (Auto) 6.6 L (25-47) % [place]oup % (Auto) 8.1 H (0-7) % Eos % (Auto) 0 (0-6) % Baso % (Auto) 0.1 (0-2) % Absolute Neuts (auto) 16.1 H (1.5-7.7) 10^3/ul Absolute Lymphs (auto) 1.3 (1.0-4.8) 10^3/ul Absolute Monos (auto) 1.5 H (0-0.8) 10^3/ul Absolute Eos (auto) 0 (0-0.6) 10^3/ul Absolute Basos (auto) 0 (0-0.2) 10^3/ul Absolute Nucleated RBC 0 10^3/ul Nucleated RBC % 0 INR (Anticoag Therapy) 0.96 (0.77-1.02) APTT 27.4 (26.0-36.3) seconds Sodium 139 (133-145) mmol/L Potassium 4.2 (3.5-5.0) mmol/L Chloride 104 (101-111) mmol/L Carbon Dioxide 25 (22-32) mmol/L Anion Gap 10 (2-11) mmol/L BUN 66 H (6-24) mg/dL Creatinine 1.36 H (0.51-0.95) mg/dL Est GFR ( Amer) 47.3 (>60) Est GFR (Non-Af Amer) 36.8 (>60) BUN/Creatinine Ratio 48.5 H (8-20) Glucose 182 H (70-100) mg/dL Lactic Acid (0.5-2.0) mmol/L Calcium 10.5 H (8.6-10.3) mg/dL Total Bilirubin 0.30 (0.2-1.0) mg/dL AST 11 L (13-39) U/L ALT 8 (7-52) U/L Alkaline Phosphatase 97 (34-104) U/L Troponin I 0.05 H* (<0.04) ng/mL C-Reactive Protein 189.01 H (< 5.00) mg/L B-Natriuretic Peptide ( - 100) pg/mL Total Protein 7.6 (6.4-8.9) g/dL Albumin 3.3 (3.2-5.2) g/dL Globulin 4.3 H (2-4) g/dL Albumin/Globulin Ratio 0.8 L (1-3) Lipase < 10 L (11.0-82.0) U/L Procalcitonin (<0.6) ng/mL Urine Color Urine Appearance Urine pH (5-9) Ur Specific [employer] [place] (1.010-1.030) Urine Protein (Negative) Urine Ketones (Negative) Urine Blood (Negative) Urine Nitrate (Negative) Urine Bilirubin (Negative) Urine Urobilinogen (Negative) Ur Leukocyte Esterase (Negative) Urine WBC (Auto) (Absent) Urine RBC (Auto) (Absent) Urine Bacteria (Absent) Urine Glucose (Negative) Influenza A (Rapid) (Negative) Influenza B (Rapid) (Negative) 05/12/17 05/12/17 05/12/17 Range/Units 12:32 12:32 12:32 WBC (3.5-10.8) 10^3/ul RBC (4.0-5.4) 10^6/ul Hgb (12.0-16.0) g/dl Hct (35-47) % MCV (80-97) fL MCH (27-31) pg MCHC (31-36) g/dl RDW (10.5-15) % Plt Count (150-450) 10^3/ul MPV (7.4-10.4) um3 Neut % (Auto) (38-83) % Lymph % (Auto) (25-47) % [place]oup % (Auto) (0-7) % Eos % (Auto) (0-6) % Baso % (Auto) (0-2) % Absolute Neuts (auto) (1.5-7.7) 10^3/ul Absolute Lymphs (auto) (1.0-4.8) 10^3/ul Absolute Monos (auto) (0-0.8) 10^3/ul Absolute Eos (auto) (0-0.6) 10^3/ul Absolute Basos (auto) (0-0.2) 10^3/ul Absolute Nucleated RBC 10^3/ul Nucleated RBC % INR (Anticoag Therapy) (0.77-1.02) APTT (26.0-36.3) seconds Sodium (133-145) mmol/L Potassium (3.5-5.0) mmol/L Chloride (101-111) mmol/L Carbon Dioxide (22-32) mmol/L Anion Gap (2-11) mmol/L BUN (6-24) mg/dL Creatinine (0.51-0.95) mg/dL Est GFR ( Amer) (>60) Est GFR (Non-Af Amer) (>60) BUN/Creatinine Ratio (8-20) Glucose (70-100) mg/dL Lactic Acid 2.4 H* (0.5-2.0) mmol/L Calcium (8.6-10.3) mg/dL Total Bilirubin (0.2-1.0) mg/dL AST (13-39) U/L ALT (7-52) U/L Alkaline Phosphatase (34-104) U/L Troponin I (<0.04) ng/mL C-Reactive Protein (< 5.00) mg/L B-Natriuretic Peptide 427 H ( - 100) pg/mL Total Protein (6.4-8.9) g/dL Albumin (3.2-5.2) g/dL Globulin (2-4) g/dL Albumin/Globulin Ratio (1-3) Lipase (11.0-82.0) U/L Procalcitonin (<0.6) ng/mL Urine Color Yellow Urine Appearance Turbid Urine pH 5.0 (5-9) Ur Specific [employer] [place] 1.020 (1.010-1.030) Urine Protein 2+(100 mg/dl) A (Negative) Urine Ketones Negative (Negative) Urine Blood 3+ A (Negative) Urine Nitrate Negative (Negative) Urine Bilirubin Negative (Negative) Urine Urobilinogen Negative (Negative) Ur Leukocyte Esterase 3+ A (Negative) Urine WBC (Auto) 3+(>20/hpf) A (Absent) Urine RBC (Auto) 3+(>10/hpf) A (Absent) Urine Bacteria Absent (Absent) Urine Glucose 1+(50 mg/dl) A (Negative) Influenza A (Rapid) (Negative) Influenza B (Rapid) (Negative) 05/12/17 05/12/17 Range/Units 12:32 13:36 WBC (3.5-10.8) 10^3/ul RBC (4.0-5.4) 10^6/ul Hgb (12.0-16.0) g/dl Hct (35-47) % MCV (80-97) fL MCH (27-31) pg MCHC (31-36) g/dl RDW (10.5-15) % Plt Count (150-450) 10^3/ul MPV (7.4-10.4) um3 Neut % (Auto) (38-83) % Lymph % (Auto) (25-47) % [place] % (Auto) (0-7) % Eos % (Auto) (0-6) % Baso % (Auto) (0-2) % Absolute Neuts (auto) (1.5-7.7) 10^3/ul Absolute Lymphs (auto) (1.0-4.8) 10^3/ul Absolute Monos (auto) (0-0.8) 10^3/ul Absolute Eos (auto) (0-0.6) 10^3/ul Absolute Basos (auto) (0-0.2) 10^3/ul Absolute Nucleated RBC 10^3/ul Nucleated RBC % INR (Anticoag Therapy) (0.77-1.02) APTT (26.0-36.3) seconds Sodium (133-145) mmol/L Potassium (3.5-5.0) mmol/L Chloride (101-111) mmol/L Carbon Dioxide (22-32) mmol/L Anion Gap (2-11) mmol/L BUN (6-24) mg/dL Creatinine (0.51-0.95) mg/dL Est GFR ( Amer) (>60) Est GFR (Non-Af Amer) (>60) BUN/Creatinine Ratio (8-20) Glucose (70-100) mg/dL Lactic Acid (0.5-2.0) mmol/L Calcium (8.6-10.3) mg/dL Total Bilirubin (0.2-1.0) mg/dL AST (13-39) U/L ALT (7-52) U/L Alkaline Phosphatase (34-104) U/L Troponin I (<0.04) ng/mL C-Reactive Protein (< 5.00) mg/L B-Natriuretic Peptide ( - 100) pg/mL Total Protein (6.4-8.9) g/dL Albumin (3.2-5.2) g/dL Globulin (2-4) g/dL Albumin/Globulin Ratio (1-3) Lipase (11.0-82.0) U/L Procalcitonin 0.4 (<0.6) ng/mL Urine Color Urine Appearance Urine pH (5-9) Ur Specific [place] (1.010-1.030) Urine Protein (Negative) Urine Ketones (Negative) Urine Blood (Negative) Urine Nitrate (Negative) Urine Bilirubin (Negative) Urine Urobilinogen (Negative) Ur Leukocyte Esterase (Negative) Urine WBC (Auto) (Absent) Urine RBC (Auto) (Absent) Urine Bacteria (Absent) Urine Glucose (Negative) Influenza A (Rapid) Negative (Negative) Influenza B (Rapid) Negative (Negative) Result Diagrams: 05/12/17 12:32 05/12/17 12:32 Lab Statement: Any lab studies that have been ordered have been reviewed, and results considered in the medical decision making process. - Radiology CXR Radiology Interpretation Completed By: Radiologist - IMPRESSION: NO ACTIVE CARDIOPULMONARY DISEASE. ED physician has reviewed this radiology report. - CT brain CT Interpretation Completed By: Radiologist - 1. NO ACUTE INTRACRANIAL PATHOLOGY. 2. CHRONIC SMALL VESSEL ISCHEMIC CHANGES. 3. CHRONIC RIGHT CEREBELLAR INFARCT. ED physician has reviewed this radiology report. - EKG 1233 Cardiac Rate: NL EKG Rhythm: Sinus Rhythm - 88 BPM EKG Interpretation: Atrial sensed ventricular paced rhythm Altered Mental Statu Course/Dx - Course Course Of Treatment: BP noted and advised to follow up with PCP. Medications reviewed. Allergies noted. ADMIT HOSPITALIST. CRITICAL CARE TIME LESS THAN 30 MINUTES - Diagnoses Provider Diagnoses: Sepsis, UTI (urinary tract infection) - Provider Notifications Discussed Care Of Patient With: Aurora Meeks Time Discussed With Above Provider: 13:00 - Consulted Dr. Meeks who will accept the pt for admissssion. Discharge - Discharge Plan Condition: Guarded Disposition: ADMITTED TO [facility] documentation as recorded by the Calderon barnett Sixian accurately reflects the service I personally performed and the decisions made by , Freddie Piña MD.
[2017-05-12] MEDS: Insulin LISPRO* 1 UNITS UNIT SUBCUT SCH (17:24)
[2017-05-12] MEDS: Metoprolol Tartrate TAB* 25 MG PO SCH ×2 (20:58→21:04)
--- NOTE | 2017-05-12 22:00 | HP ---
CC: Dr. Ahmadi; Providers at [facility]* [facility] H[facility]ORY AND PHYSICAL: DATE OF ADMISSION: 05/12/17 TIME OF EXAMINATION: 1300 hours. PRIMARY CARE PHYSICIAN: Dr. Ahmadi. ATTENDING PHYSICIAN: Dr. Aurora Meeks* (dictation provided by Sil Dia NP) Information obtained from the patient's daughter, who is at the bedside and record from [facility]. CHIEF COMPLAINT: Altered mental status. HISTORY OF PRESENT ILLNESS: Ms. Huynh is an 87-year-old female, who is obtunded now, and unable to provide information. Information is obtained from her daughter who is at the bedside as well as the record from [facility]. Per the report, Ms. Huynh has been doing well since her admission to [facility] after a stroke back in January. She reportedly has some dysarthria; however, she is frequently quite clear in her speech and able to make her needs known. She is generally week and uses a wheelchair only for mobility. She has been tolerating oral intake well. She has a chronic indwelling castano since her stroke. Nursing staff reported to the patient's daughter that they recently had some trouble with her Castano catheter described as "difficulty changing it out." Patient reportedly had a large amount of urine output once the castano catheter was exchanged so there was some apparent urinary retention. This morning, the patient was noted to be obtunded and difficult to arouse. She also had a dramatically elevated blood sugar to about 500. For that reason, she was transported to the emergency room. Ms. Huynh's daughter notes no other acute complaints. In the emergency room, Ms. Huynh had a white blood cell count of 18.9, CRP of 189.01, lactic acid of 2.4. She has acute kidney injury with BUN 66, creatinine 1.36. She also had an elevated troponin to 0.05. Her urine shows 3 + leuk esterase, but no bacteria. The patient's daughter does note, however, that the patient has ulcerations to bilateral heels. PAST MEDICAL HISTORY: 1. 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 2. Ventricular tachycardia, with pacemaker. 3. Mild aortic stenosis. 4. Left bundle branch block. 5. Diastolic CHF. 6. Hypertension. 7. Hyperlipidemia. 8. Dementia. 9. Chronic pain. MEDICATIONS: 1. Tylenol 1000 mg p.o. q.8 hours p.r.n. 2. Insulin lispro 4 units subcutaneously b.i.d. p.r.n. 3. Metformin 1000 mg p.o. b.i.d. 4. Senna with docusate 2 tabs p.o. at bedtime. 5. Diltiazem CD 180 mg p.o. daily. 6. Lantus insulin 10 units subcutaneously daily. 7. Metoprolol tartrate 37.5 mg p.o. b.i.d. ALLERGIES: To PENICILLINS and WHEAT EXTRACT. FAMILY HISTORY: Unobtainable. SOCIAL HISTORY: No report of alcohol, tobacco, or drug use. The patient currently resides at [facility]. Her daughter is her healthcare proxy. REVIEW OF SYSTEMS: Unobtainable. PHYSICAL EXAMINATION GENERAL: Ms. Huynh is lying in the bed. She does not appear to be in any acute distress. VITAL SIGNS: Blood pressure 118/53, heart rate 96, temperature 99.2, respiratory rate 17, O2 saturation 100% on 2 L nasal cannula. LUNGS: Clear to auscultation bilaterally with no accessory muscle use and good aeration. HEART: S1, S2. No murmur, rub, or gallop, and regular. ABDOMEN: Soft, nontender with bowel sounds positive x4. EXTREMITIES: No cyanosis. No edema. Positive dorsalis pedis and posterior tibialis pulses. NEURO: She is obtunded. She will furrow her brow to stimulation, but does not open her eyes or otherwise respond. Her pupils are pinpoint and equal. There is no facial asymmetry. SKIN: The patient has ulcerations to the bottom of heel of both feet, left greater than right. Right ulceration is about 1 cm, oval; left ulceration is about 3 to 4 cm, oval. There is black eschar. No erythema. No drainage. DIAGNOSTIC STUDIES/LAB DATA: Sodium 139, potassium 4.2, chloride 104, serum bicarbonate 25, BUN 66, creatinine 1.36, glucose 182, lactic acid 2.4. Troponin 0.05. CRP 189.01. WBC 18.9, hemoglobin 12.4, hematocrit 38, platelet count 342. Urine shows 3+ leuk esterase, but no nitrite and no bacteria. Flu swab is negative. Chest x-ray is as follows: "No active cardiopulmonary disease." CT brain is as follows: "No acute intracranial pathology. Chronic small vessel ischemic changes. Chronic right cerebellar infarct." ASSESSMENT AND PLAN: Ms. Huynh is an 87-year-old female with a past medical history of cerebrovascular accident to the right cerebellum back in January 2017, as well as hypertension, diabetes, and hyperlipidemia, who presents to the hospital today from [facility] with concern for altered mental status and has been found to have suspicion for sepsis secondary to urinary tract infection with chronic indwelling Castano. Our plans are for inpatient admission as expected length of stay to be greater than 2 days for the followin. Sepsis: I do suspect this is likely secondary to her chronic indwelling Castano and urinary tract infection. However, I do note that there are no bacteria in the urine and it may that there is an alternate source. There is report that there was some difficulty with the Castano catheter at [place] suggestive of some urinary retention and again indicative of urinary tract infection. Remainder of the workup included chest x-ray, which shows no acute abnormality. Blood cultures have been sent. She will be hydrated and a lactic acid will be redrawn per routine. We will recheck CBC and BMP rechecked tomorrow. 2. Acute kidney injury. I suspect this is secondary to sepsis and perhaps some component of acute urinary retention, which has now been resolved. Castano has clear urine and there is no suprapubic tenderness. Plan to hydrate and recheck tomorrow. We will plan to avoid nephrotoxins as possible. 3. Type 2 diabetes. The patient's blood glucose was noted to be dramatically elevated at the [facility] up to 500; however, here today at our first check, it was approximately 180. Plan to continue with her Lantus and lispro sliding scale insulin with meals if she is able to tolerate the food when she arouses. 4. Altered mental status. Again, I think this is all secondary to infection. CT brain is negative. 5. Elevated troponin. Plan to trend troponins. I suspect this is related to mild demand ischemia in setting of sepsis. 6. Pressure ulcers. The patient has 2 heel sores; there were plans for her to be evaluated by the [facility] outpatient. Plan to request consultation , if it is possible for her to be seen while here, for recommendations. They do not appear to be overtly infected at this point. 7. Hypertension. Continue diltiazem, withhold parameters as well as metoprolol. 8. History of cerebrovascular accident. Continue aspirin. 9. Hyperlipidemia. Continue Lipitor. 10. Code status is DNR/DNI and MOLST form has been completed with the patient' s daughter. TIME SPENT: Approximately 60 minutes was spent on admission of this patient; more than half time spent with the patient and her daughter at the bedside reviewing the events leading up to this hospitalization, performing the physical examination and reviewing my plan of care. SIL DIA NP [id number]/CPS #: [id number] JUANA
[2017-05-13] MEDS: NS 0.9% 1000 ML* 1,000 ML IV SCH ×2 (01:15→13:08)
[2017-05-13] MEDS ORDERED: Acetaminophen SUPP* 650 MG SUPP PR PRN (01:54)
[2017-05-13] MEDS: Heparin VIAL(*) 5000 UNITS/ML VIAL (FIVE THOUSAND) SUBCUT SCH ×3 (05:12→22:17)
[2017-05-13 06:08] LABS: ABS Basophils 0.2 10^3/ul (0-0.2); ABS Eosinophils 0.2 10^3/ul (0-0.6); ABS Lymphocytes 2.2 10^3/ul (1.0-4.8); ABS Monocytes 0.7 10^3/ul (0-0.8); ABS Neutrophils 12.5 10^3/ul (1.5-7.7); ABS Nucleated RBC 0 10^3/ul; Eosinophil % 1.4 % (0-6); Hematocrit 32 % (35-47); Hemoglobin 10.4 g/dl (12.0-16.0); Lymphocyte % 13.8 % (25-47); Mean Corpuscular HGB Conc 32 g/dl (31-36); Mean Corpuscular Hemoglobin 31 pg (27-31); Mean Corpuscular Volume 95 fL (80-97); Mean Platelet Volume 8 um3 (7.4-10.4); Nucleated Red Blood Cells % 0; Platelet Count 304 10^3/ul (150-450); Red Blood Count 3.36 10^6/ul (4.0-5.4); Red Cell Distribution Width 15 % (10.5-15); White Blood Count 15.8 10^3/ul (3.5-10.8)
[2017-05-13 06:22] LABS: EGFR Non-African American 68.8 (>60)
[2017-05-13] MEDS: Insulin LISPRO* 1 UNITS UNIT SUBCUT SCH ×3 (07:47→17:37)
[2017-05-13] MEDS: Diltiazem CD CAP* 180 MG PO SCH (08:03)
[2017-05-13] MEDS: Metoprolol Tartrate TAB* 25 MG PO SCH ×2 (08:03→20:48)
[2017-05-13] MEDS: Insulin GLARGINE(*) 1 UNITS UNIT SUBCUT SCH (08:06)
[2017-05-13] MEDS ORDERED: Diltiazem CD CAP* 180 MG PO SCH (09:00)
[2017-05-13] MEDS ORDERED: Potassium Chloride LIQUID* 20 MEQ PACKET PO ONE (09:54)
--- NOTE | 2017-05-13 10:01 | PN ---
Subjective Date of Service: 05/13/17 Interval History: No complaints, Verbalizes she is feeling better today. difficult to understand d /t dysarthia. Denies chest pain, or shortness of breath. Denies abd pain n/v/d Family History: Unchanged from Admission Social History: Unchanged from Admission Past Medical History: Unchanged from Admission Objective Active Medications: Acetaminophen (Tylenol Supp*) 650 mg HI Q4H PRN PRN Reason: FEVER/PAIN Dextrose (D50w Syringe 50 Ml*) 12.5 gm IV PUSH .FOR FS < 60 - SS PRN PRN Reason: FS < 60 Diltiazem HCl (Cardizem Cd Cap*) 180 mg PO DAILY [facility] Last Admin: 05/13/17 08:03 Dose: 180 mg Heparin Sodium (Porcine) (Heparin Vial(*)) 5,000 units SUBCUT Q8HR [facility] Last Admin: 05/13/17 05:12 Dose: 5,000 units Ceftriaxone Sodium 1 gm/ (Sodium Chloride) 50 mls @ 200 mls/hr IVPB Q24H [facility] Sodium Chloride (Ns 0.9% 1000 Ml*) 1,000 mls @ 100 mls/hr IV PER RATE [facility] Last Admin: 05/13/17 01:15 Dose: 100 mls/hr Insulin Glargine (Lantus(*)) 10 units SUBCUT DAILY [facility] Last Admin: 05/13/17 08:06 Dose: 10 units Insulin Human Lispro (Humalog*) 0 units SUBCUT AC [facility] PRN Reason: Protocol Metoprolol Tartrate (Lopressor Tab*) 37.5 mg PO BID [facility] Last Admin: 05/13/17 08:03 Dose: 37.5 mg Potassium Chloride (Klor-Con Liquid*) 40 meq PO ED ONCE ONE Stop: 05/13/17 09:55 Vital Signs - 8 hr 05/13/17 05/13/17 05/13/17 03:31 03:42 07:53 Temperature 96.5 F 98.1 F Pulse Rate 67 83 Respiratory 16 18 Rate Blood Pressure 123/29 112/38 181/62 (mmHg) O2 Sat by Pulse 99 100 Oximetry 05/13/17 05/13/17 08:00 09:39 Temperature Pulse Rate 70 Respiratory 18 20 Rate Blood Pressure 178/62 (mmHg) O2 Sat by Pulse 98 98 Oximetry Oxygen Devices in Use Now: Nasal Cannula Appearance: appears alert, awake , confused to place and time, alert to name. Eyes: No Scleral Icterus Ears/Nose/Mouth/Throat: Clear Oropharnyx, Mucous Membranes Moist Neck: NL Appearance and Movements; NL JVP, Trachea Midline Respiratory: Symmetrical Chest Expansion and Respiratory Effort - diminished bilat , Clear to Auscultation, - Cardiovascular: NL Sounds; No Murmurs; No JVD, No Edema Abdominal: NL Sounds; No Tenderness; No Distention Extremities: No Edema, No Clubbing, Cyanosis, - - heel protectors on bilat Skin: - - bilat heels with necrotic areas, left greater than right, no drainage , surrounding tissue without redness Neurological: - - oriented to person, confused to place and time Nutrition: Taking PO's Result Diagrams: 05/13/17 05:28 05/13/17 05:25 Additional Lab and Data: Lab Results 05/12/17 05/12/17 05/12/17 Range/Units 12:32 12:32 12:32 WBC 18.9 H (3.5-10.8) 10^3/ul RBC 3.99 L (4.0-5.4) 10^6/ul Hgb 12.4 (12.0-16.0) g/dl Hct 38 (35-47) % MCV 95 (80-97) fL MCH 31 (27-31) pg MCHC 33 (31-36) g/dl RDW 15 (10.5-15) % Plt Count 342 (150-450) 10^3/ul MPV 8 (7.4-10.4) um3 Neut % (Auto) 85.2 H (38-83) % Lymph % (Auto) 6.6 L (25-47) % [place] % (Auto) 8.1 H (0-7) % Eos % (Auto) 0 (0-6) % Baso % (Auto) 0.1 (0-2) % Absolute Neuts (auto) 16.1 H (1.5-7.7) 10^3/ul Absolute Lymphs (auto) 1.3 (1.0-4.8) 10^3/ul Absolute Monos (auto) 1.5 H (0-0.8) 10^3/ul Absolute Eos (auto) 0 (0-0.6) 10^3/ul Absolute Basos (auto) 0 (0-0.2) 10^3/ul Absolute Nucleated RBC 0 10^3/ul Nucleated RBC % 0 INR (Anticoag Therapy) 0.96 (0.77-1.02) APTT 27.4 (26.0-36.3) seconds Sodium 139 (133-145) mmol/L Potassium 4.2 (3.5-5.0) mmol/L Chloride 104 (101-111) mmol/L Carbon Dioxide 25 (22-32) mmol/L Anion Gap 10 (2-11) mmol/L BUN 66 H (6-24) mg/dL Creatinine 1.36 H (0.51-0.95) mg/dL Est GFR ( Amer) 47.3 (>60) Est GFR (Non-Af Amer) 36.8 (>60) BUN/Creatinine Ratio 48.5 H (8-20) Glucose 182 H (70-100) mg/dL Lactic Acid (0.5-2.0) mmol/L Calcium 10.5 H (8.6-10.3) mg/dL Total Bilirubin 0.30 (0.2-1.0) mg/dL AST 11 L (13-39) U/L ALT 8 (7-52) U/L Alkaline Phosphatase 97 (34-104) U/L Troponin I 0.05 H* (<0.04) ng/mL C-Reactive Protein 189.01 H (< 5.00) mg/L B-Natriuretic Peptide ( - 100) pg/mL Total Protein 7.6 (6.4-8.9) g/dL Albumin 3.3 (3.2-5.2) g/dL Globulin 4.3 H (2-4) g/dL Albumin/Globulin Ratio 0.8 L (1-3) Lipase < 10 L (11.0-82.0) U/L Procalcitonin (<0.6) ng/mL Urine Color Urine Appearance Urine pH (5-9) Ur Specific [place] (1.010-1.030) Urine Protein (Negative) Urine Ketones (Negative) Urine Blood (Negative) Urine Nitrate (Negative) Urine Bilirubin (Negative) Urine Urobilinogen (Negative) Ur Leukocyte Esterase (Negative) Urine WBC (Auto) (Absent) Urine RBC (Auto) (Absent) Urine Bacteria (Absent) Urine Glucose (Negative) Influenza A (Rapid) (Negative) Influenza B (Rapid) (Negative) 05/12/17 05/12/17 05/12/17 Range/Units 12:32 12:32 12:32 WBC (3.5-10.8) 10^3/ul RBC (4.0-5.4) 10^6/ul Hgb (12.0-16.0) g/dl Hct (35-47) % MCV (80-97) fL MCH (27-31) pg MCHC (31-36) g/dl RDW (10.5-15) % Plt Count (150-450) 10^3/ul MPV (7.4-10.4) um3 Neut % (Auto) (38-83) % Lymph % (Auto) (25-47) % [place] % (Auto) (0-7) % Eos % (Auto) (0-6) % Baso % (Auto) (0-2) % Absolute Neuts (auto) (1.5-7.7) 10^3/ul Absolute Lymphs (auto) (1.0-4.8) 10^3/ul Absolute Monos (auto) (0-0.8) 10^3/ul Absolute Eos (auto) (0-0.6) 10^3/ul Absolute Basos (auto) (0-0.2) 10^3/ul Absolute Nucleated RBC 10^3/ul Nucleated RBC % INR (Anticoag Therapy) (0.77-1.02) APTT (26.0-36.3) seconds Sodium (133-145) mmol/L Potassium (3.5-5.0) mmol/L Chloride (101-111) mmol/L Carbon Dioxide (22-32) mmol/L Anion Gap (2-11) mmol/L BUN (6-24) mg/dL Creatinine (0.51-0.95) mg/dL Est GFR ( Amer) (>60) Est GFR (Non-Af Amer) (>60) BUN/Creatinine Ratio (8-20) Glucose (70-100) mg/dL Lactic Acid 2.4 H* (0.5-2.0) mmol/L Calcium (8.6-10.3) mg/dL Total Bilirubin (0.2-1.0) mg/dL AST (13-39) U/L ALT (7-52) U/L Alkaline Phosphatase (34-104) U/L Troponin I (<0.04) ng/mL C-Reactive Protein (< 5.00) mg/L B-Natriuretic Peptide 427 H ( - 100) pg/mL Total Protein (6.4-8.9) g/dL Albumin (3.2-5.2) g/dL Globulin (2-4) g/dL Albumin/Globulin Ratio (1-3) Lipase (11.0-82.0) U/L Procalcitonin (<0.6) ng/mL Urine Color Yellow Urine Appearance Turbid Urine pH 5.0 (5-9) Ur Specific [place] 1.020 (1.010-1.030) Urine Protein 2+(100 mg/dl) A (Negative) Urine Ketones Negative (Negative) Urine Blood 3+ A (Negative) Urine Nitrate Negative (Negative) Urine Bilirubin Negative (Negative) Urine Urobilinogen Negative (Negative) Ur Leukocyte Esterase 3+ A (Negative) Urine WBC (Auto) 3+(>20/hpf) A (Absent) Urine RBC (Auto) 3+(>10/hpf) A (Absent) Urine Bacteria Absent (Absent) Urine Glucose 1+(50 mg/dl) A (Negative) Influenza A (Rapid) (Negative) Influenza B (Rapid) (Negative) 05/12/17 05/12/17 Range/Units 12:32 13:36 WBC (3.5-10.8) 10^3/ul RBC (4.0-5.4) 10^6/ul Hgb (12.0-16.0) g/dl Hct (35-47) % MCV (80-97) fL MCH (27-31) pg MCHC (31-36) g/dl RDW (10.5-15) % Plt Count (150-450) 10^3/ul MPV (7.4-10.4) um3 Neut % (Auto) (38-83) % Lymph % (Auto) (25-47) % [place] % (Auto) (0-7) % Eos % (Auto) (0-6) % Baso % (Auto) (0-2) % Absolute Neuts (auto) (1.5-7.7) 10^3/ul Absolute Lymphs (auto) (1.0-4.8) 10^3/ul Absolute Monos (auto) (0-0.8) 10^3/ul Absolute Eos (auto) (0-0.6) 10^3/ul Absolute Basos (auto) (0-0.2) 10^3/ul Absolute Nucleated RBC 10^3/ul Nucleated RBC % INR (Anticoag Therapy) (0.77-1.02) APTT (26.0-36.3) seconds Sodium (133-145) mmol/L Potassium (3.5-5.0) mmol/L Chloride (101-111) mmol/L Carbon Dioxide (22-32) mmol/L Anion Gap (2-11) mmol/L BUN (6-24) mg/dL Creatinine (0.51-0.95) mg/dL Est GFR ( Amer) (>60) Est GFR (Non-Af Amer) (>60) BUN/Creatinine Ratio (8-20) Glucose (70-100) mg/dL Lactic Acid (0.5-2.0) mmol/L Calcium (8.6-10.3) mg/dL Total Bilirubin (0.2-1.0) mg/dL AST (13-39) U/L ALT (7-52) U/L Alkaline Phosphatase (34-104) U/L Troponin I (<0.04) ng/mL C-Reactive Protein (< 5.00) mg/L B-Natriuretic Peptide ( - 100) pg/mL Total Protein (6.4-8.9) g/dL Albumin (3.2-5.2) g/dL Globulin (2-4) g/dL Albumin/Globulin Ratio (1-3) Lipase (11.0-82.0) U/L Procalcitonin 0.4 (<0.6) ng/mL Urine Color Urine Appearance Urine pH (5-9) Ur Specific [place] (1.010-1.030) Urine Protein (Negative) Urine Ketones (Negative) Urine Blood (Negative) Urine Nitrate (Negative) Urine Bilirubin (Negative) Urine Urobilinogen (Negative) Ur Leukocyte Esterase (Negative) Urine WBC (Auto) (Absent) Urine RBC (Auto) (Absent) Urine Bacteria (Absent) Urine Glucose (Negative) Influenza A (Rapid) Negative (Negative) Influenza B (Rapid) Negative (Negative) Microbiology and Other Data: Microbiology 05/12/17 15:03 Nasal Screen MRSA (PCR)(ESTELITA) - Final Nasal Mrsa Not Detected Assess/Plan/Problems-Billing Assessment: Ms. Huynh is an 87 y.o female with a history CVA that presented to the ER for evaluation of increased confusion - Patient Problems (1) UTI (urinary tract infection) Current Visit: Yes Status: Acute Comment: ~afebrile ~will continue on ceftriaxone ~ castano patent (2) Sepsis Current Visit: Yes Status: Acute Comment: WBC's improving Will continue ceftriaxone IV ~ to treat UTI (3) Acute kidney injury Current Visit: Yes Status: Acute Code(s): N17.9 - ACUTE KIDNEY FAILURE, UNSPECIFIED SNOMED Code(s): 28206569 Comment: ~ Improving~ suspect this is releated to UTI and possible urinary retention as reproted issues with catheter prior to having it changed ~ will continue to monitor ~ will avoid Nephrotoxic medications (4) HTN (hypertension) Current Visit: No Status: Acute Code(s): I10 - ESSENTIAL (PRIMARY) HYPERTENSION SNOMED Code(s): 24375693 Comment: ~Will contiue Metoprolol and cardizem ~ (5) Diabetes mellitus Current Visit: Yes Status: Acute Code(s): E11.9 - TYPE 2 DIABETES MELLITUS WITHOUT COMPLICATIONS SNOMED Code(s): 94233029 Comment: ~ Blood sugar on AM draw was 68 ~ finger sticks AC ~ lispro sliding scale changed to AC coverage with BMI less than 25 ~ Continue Lantus 10mg daily ~ will hold Metformin for now (6) Elevated troponin Current Visit: Yes Status: Acute Code(s): R74.8 - ABNORMAL LEVELS OF OTHER SERUM ENZYMES SNOMED Code(s): 953096032 Comment: ~suspect this is related to demand ischemia r/t sepsis ~ repeat level was negative ~ denies chest pain (7) Pressure ulcer of both heels Current Visit: Yes Status: Acute Code(s): L89.619 - PRESSURE ULCER OF RIGHT HEEL, UNSPECIFIED STAGE; L89.629 - PRESSURE ULCER OF LEFT HEEL, UNSPECIFIED STAGE SNOMED Code(s): 018573630 Comment: ~Wound care consulted~ for recommendation in management ~ will obtain x-ray of bilat heels to r/o osteomylitis- pending ~ will leave heel protectors in place (8) Hypokalemia Current Visit: Yes Status: Acute Code(s): E87.6 - HYPOKALEMIA SNOMED Code( s): 51813926 Comment: ~potassium 3.4 today ~ will give 1 dose of 40meq ~ repeat BMP in AM (9) History of CVA (cerebrovascular accident) Current Visit: Yes Status: Acute Code(s): Z86.73 - PRSNL HX OF TIA (TIA), AND CEREB INFRC W/O RESID DEFICITS SNOMED Code(s): 523234354 Comment: Patient with some dysarthia (10) Dementia Current Visit: No Status: Acute Code(s): F03.90 - UNSPECIFIED DEMENTIA WITHOUT BEHAVIORAL DISTURBANCE SNOMED Code(s): 52312662 Comment: stable~ continue supportive care (11) DVT prophylaxis Current Visit: Yes Status: Acute Code(s): DSE6147 - SNOMED Code(s): 227308417 Comment: ~Heparin SQ (12) DNR (do not resuscitate) Current Visit: Yes Status: Acute Status and Disposition: inpatient
[2017-05-13] MEDS: cefTRIAXone(*) 1 GM in NS 0.9% 50 ML* 50 ML IVPB SCH (11:59)
[2017-05-13] MEDS: Acetaminophen TAB* 325 MG PO PRN ×2 (14:04→19:30)
--- NOTE | 2017-05-13 17:52 | RAD ---
INDICATION: Bilateral heel pressure ulcers COMPARISON: None TECHNIQUE: AP and lateral imaging of the left and right calcanei were obtained. FINDINGS: There is sclerosis and there may be cortical disruption about the calcanei bilaterally. Evaluation is limited due to the presence of overlying bandage and due to underlying osteopenia. IMPRESSION: BILATERAL CALCANEAL OSTEOMYELITIS CANNOT BE EXCLUDED.
[2017-05-14] MEDS: NS 0.9% 1000 ML* 1,000 ML IV SCH (00:40)
[2017-05-14] MEDS: Heparin VIAL(*) 5000 UNITS/ML VIAL (FIVE THOUSAND) SUBCUT SCH ×4 (05:08→21:29)
[2017-05-14] MEDS: Insulin LISPRO* 1 UNITS UNIT SUBCUT SCH ×3 (09:19→16:32)
[2017-05-14] MEDS: Metoprolol Tartrate TAB* 25 MG PO SCH ×3 (09:20→21:28)
[2017-05-14] MEDS: Insulin GLARGINE(*) 1 UNITS UNIT SUBCUT SCH (09:20)
[2017-05-14] MEDS: Diltiazem CD CAP* 180 MG PO SCH (09:21)
--- NOTE | 2017-05-14 09:36 | PN ---
Subjective Date of Service: 05/14/17 Interval History: Patient seen and examined at bedside. Denies fever, chills, shortness of breath , chest discomfort, N/V/D. Pt states that she doesn't wear oxygen at home. Family History: Unchanged from Admission Social History: Unchanged from Admission Past Medical History: Unchanged from Admission Objective Active Medications: Acetaminophen (Tylenol Tab*) 650 mg PO Q4H PRN Reason: FEVER/PAIN Dextrose (D50w Syringe 50 Ml*) 12.5 gm IV PUSH .FOR FS < 60 - SS PRN Reason: FS < 60 Diltiazem HCl (Cardizem Cd Cap*) 180 mg PO DAILY [facility] Heparin Sodium (Porcine) (Heparin Vial(*)) 5,000 units SUBCUT Q8HR [facility] Ceftriaxone Sodium 1 gm/ (Sodium Chloride) 50 mls @ 200 mls/hr IVPB Q24H [facility] Sodium Chloride (Ns 0.9% 1000 Ml*) 1,000 mls @ 100 mls/hr IV PER RATE [facility] Insulin Glargine (Lantus(*)) 10 units SUBCUT DAILY [facility] Insulin Human Lispro (Humalog*) 0 units SUBCUT AC [facility] Metoprolol Tartrate (Lopressor Tab*) 37.5 mg PO BID [facility] Vital Signs - 8 hr 05/14/17 05/14/17 05/14/17 03:14 08:00 08:03 Temperature 97.5 F 97.9 F Pulse Rate 61 66 Respiratory 16 16 20 Rate Blood Pressure 160/57 164/59 (mmHg) O2 Sat by Pulse 97 97 Oximetry 05/14/17 09:00 Temperature Pulse Rate Respiratory Rate Blood Pressure (mmHg) O2 Sat by Pulse 97 Oximetry Oxygen Devices in Use Now: Nasal Cannula - 2L Appearance: NAD, laying in bed Ears/Nose/Mouth/Throat: Mucous Membranes Moist Respiratory: Symmetrical Chest Expansion and Respiratory Effort, Clear to Auscultation Cardiovascular: RRR, - - Grade 3/6 systolic murmur heard best at the left upper sternal border Abdominal: NL Sounds; No Tenderness; No Distention - , Abdomen large Extremities: No Edema Skin: - - Bilateral heels with areas of eschar Neurological: NL Muscle Strength and Tone, - - Alert and Oriented to Person Lines/Tubes/Other Access: Clean, Dry and Intact [place] - patent, draining clear yellow urine, Clean, Dry and Intact Peripheral IV - site benign Nutrition: Taking PO's Result Diagrams: 05/13/17 05:28 05/13/17 05:25 Additional Lab and Data: Right heel 05/14/17 Left heel 05/14/17 Microbiology and Other Data: Microbiology 05/12/17 15:03 Nasal Screen MRSA (PCR)(ESTELITA) - Final Nasal Mrsa Not Detected Assess/Plan/Problems-Billing Assessment: Ms. Huynh is an 87 y.o female with a history CVA, vtach, mild , LBBB, diastolic CHF, HTN, HLD, dementia, and chronic pain that presented to the emergency room for evaluation of increased confusion. - Patient Problems (1) UTI (urinary tract infection) Comment: - Afebrile, leukocytosis is improving - [place] patent - Urine culture with Proteus Mirabilis - Blood cultures, no growth day 1 - Continue ceftriaxone (2) Acute kidney injury Code(s): N17.9 - ACUTE KIDNEY FAILURE, UNSPECIFIED SNOMED Code(s): 78149640 Comment: - Resolved - Suspect secondary to UTI and possible urinary retention as reported issues with catheter prior to having it changed - Avoid nephrotoxic medications (3) Hypokalemia Code(s): E87.6 - HYPOKALEMIA SNOMED Code(s): 58109739 Comment: - K+ 3.4 yesterday and received KCL 40meq - Will repeat BMP in AM (4) Pressure ulcer of both heels Code(s): L89.619 - PRESSURE ULCER OF RIGHT HEEL, UNSPECIFIED STAGE; L89.629 - PRESSURE ULCER OF LEFT HEEL, UNSPECIFIED STAGE SNOMED Code(s): 886086046 Comment: - Wound care consult, pending - Heel x-rays, bilateral calcaneal osteomyelitis cannot be excluded - Continue heel protectors (5) Sepsis Comment: - Present on admission with leukocytosis and tachycardia - WBCs improving - Continue ceftriaxone to treat UTI (6) Elevated troponin Code(s): R74.8 - ABNORMAL LEVELS OF OTHER SERUM ENZYMES SNOMED Code(s): 499251898 Comment: - Troponin 0.05, 0.04, 0.01 - Denies chest pain - Suspect secondary to demand ischemia r/t sepsis (7) Diabetes mellitus Code(s): E11.9 - TYPE 2 DIABETES MELLITUS WITHOUT COMPLICATIONS SNOMED Code(s) : 46832251 Comment: - HgA1C 8.7 - Glucose 160-200s - Continue finger sticks AC - Continue lispro sliding scale and Lantus - Hold Metformin for now (8) History of CVA (cerebrovascular accident) Code(s): Z86.73 - PRSNL HX OF TIA (TIA), AND CEREB INFRC W/O RESID DEFICITS SNOMED Code(s): 959505179 Comment: - With some dysarthia (9) Dementia Code(s): F03.90 - UNSPECIFIED DEMENTIA WITHOUT BEHAVIORAL DISTURBANCE SNOMED Code(s): 99666738 Comment: - Continue supportive care (10) Diastolic CHF Code(s): I50.30 - UNSPECIFIED DIASTOLIC (CONGESTIVE) HEART FAILURE SNOMED Code (s): 627141875 Comment: - No sign of acute exacerbation at this time - Daily weight and strict I+Os (11) HTN (hypertension) Code(s): I10 - ESSENTIAL (PRIMARY) HYPERTENSION SNOMED Code(s): 52199431 Comment: - SBP 140-160's - Contiue Metoprolol and cardizem (12) DVT prophylaxis Code(s): GFN4175 - SNOMED Code(s): 572834714 Comment: ~Heparin SQ (13) DNR (do not resuscitate) Status and Disposition: Inpatient. Discharge back to [facility] when medically stable, suspect in 1- 2 days.
[2017-05-14] MEDS: cefTRIAXone(*) 1 GM in NS 0.9% 50 ML* 50 ML IVPB SCH (11:37)
[2017-05-14] MEDS: Acetaminophen TAB* 325 MG PO PRN (13:51)
[2017-05-15] MEDS: Heparin VIAL(*) 5000 UNITS/ML VIAL (FIVE THOUSAND) SUBCUT SCH ×3 (05:31→20:58)
[2017-05-15 06:27] LABS: ABS Basophils 0 10^3/ul (0-0.2); ABS Eosinophils 0.3 10^3/ul (0-0.6); ABS Lymphocytes 2.5 10^3/ul (1.0-4.8); ABS Monocytes 0.5 10^3/ul (0-0.8); ABS Nucleated RBC 0 10^3/ul; Eosinophil % 3.7 % (0-6); Hematocrit 32 % (35-47); Hemoglobin 10.4 g/dl (12.0-16.0); Lymphocyte % 34.1 % (25-47); Mean Corpuscular HGB Conc 33 g/dl (31-36); Mean Corpuscular Hemoglobin 31 pg (27-31); Mean Corpuscular Volume 94 fL (80-97); Mean Platelet Volume 8 um3 (7.4-10.4); Nucleated Red Blood Cells % 0.1; Platelet Count 325 10^3/ul (150-450); Red Cell Distribution Width 15 % (10.5-15); White Blood Count 7.3 10^3/ul (3.5-10.8)
[2017-05-15 06:34] LABS: EGFR Non-African American 92.8 (>60)
[2017-05-15] MEDS ORDERED: Potassium Chlor TAB* 20 MEQ TAB.ER PO ONE (07:40)
[2017-05-15] MEDS: Insulin LISPRO* 1 UNITS UNIT SUBCUT SCH ×3 (08:23→17:22)
[2017-05-15] MEDS: Diltiazem CD CAP* 180 MG PO SCH (09:40)
[2017-05-15] MEDS: Insulin GLARGINE(*) 1 UNITS UNIT SUBCUT SCH (09:41)
[2017-05-15] MEDS: Metoprolol Tartrate TAB* 25 MG PO SCH ×2 (09:41→20:54)
[2017-05-15] MEDS: cefTRIAXone(*) 1 GM in NS 0.9% 50 ML* 50 ML IVPB SCH (12:49)
--- NOTE | 2017-05-15 12:57 | PN ---
Subjective Date of Service: 05/15/17 Interval History: Patient seen and examined at bedside. Denies fever, chills, shortness of breath , chest discomfort, N/V/D. Pt states that she is feeling well. Family History: Unchanged from Admission Social History: Unchanged from Admission Past Medical History: Unchanged from Admission Objective Active Medications: Acetaminophen (Tylenol Tab*) 650 mg PO Q4H PRN Reason: FEVER/PAIN Dextrose (D50w Syringe 50 Ml*) 12.5 gm IV PUSH .FOR FS < 60 - SS PRN Reason: FS < 60 Diltiazem HCl (Cardizem Cd Cap*) 180 mg PO DAILY [facility] Heparin Sodium (Porcine) (Heparin Vial(*)) 5,000 units SUBCUT Q8HR [facility] Ceftriaxone Sodium 1 gm/ (Sodium Chloride) 50 mls @ 200 mls/hr IVPB Q24H [facility] Insulin Glargine (Lantus(*)) 10 units SUBCUT DAILY [facility] Insulin Human Lispro (Humalog*) 0 units SUBCUT AC [facility] Metoprolol Tartrate (Lopressor Tab*) 37.5 mg PO BID [facility] Vital Signs - 8 hr 05/15/17 05/15/17 05/15/17 07:25 10:18 11:22 Temperature 98.0 F 98.0 F Pulse Rate 73 66 Respiratory 18 18 18 Rate Blood Pressure 163/56 178/77 (mmHg) O2 Sat by Pulse 92 92 100 Oximetry Oxygen Devices in Use Now: None Appearance: NAD, sitting up in bed Respiratory: Symmetrical Chest Expansion and Respiratory Effort, Clear to Auscultation Cardiovascular: NL Sounds; No Murmurs; No JVD, RRR Abdominal: NL Sounds; No Tenderness; No Distention Extremities: No Edema Skin: - - Bilateral heels with areas od eschar Neurological: Alert and Oriented x 3 Lines/Tubes/Other Access: Clean, Dry and Intact [place] - patent, draining yellow urine, Clean, Dry and Intact Peripheral IV - site benign Nutrition: Taking PO's Result Diagrams: 05/15/17 05:37 05/15/17 05:37 Additional Lab and Data: Right heel 05/14/17 Left heel 05/14/17 Microbiology and Other Data: Microbiology 05/12/17 15:03 Nasal Screen MRSA (PCR)(ESTELITA) - Final Nasal Mrsa Not Detected Assess/Plan/Problems-Billing Assessment: Ms. Huynh is an 87 y.o female with a history CVA, vtach, mild , LBBB, diastolic CHF, HTN, HLD, dementia, and chronic pain that presented to the emergency room for evaluation of increased confusion. - Patient Problems (1) UTI (urinary tract infection) Comment: - Afebrile, leukocytosis resolved - [place] patent - Urine culture with Proteus Mirabilis - Blood cultures, no growth day 2 - Continue ceftriaxone (2) Acute kidney injury Code(s): N17.9 - ACUTE KIDNEY FAILURE, UNSPECIFIED SNOMED Code(s): 48267129 Comment: - Resolved - Suspect secondary to UTI and possible urinary retention as reported issues with catheter prior to having it changed - Avoid nephrotoxic medications (3) Hypokalemia Code(s): E87.6 - HYPOKALEMIA SNOMED Code(s): 05550818 Comment: - Received KCL 40meq today - Will repeat BMP in AM (4) Pressure ulcer of both heels Code(s): L89.619 - PRESSURE ULCER OF RIGHT HEEL, UNSPECIFIED STAGE; L89.629 - PRESSURE ULCER OF LEFT HEEL, UNSPECIFIED STAGE SNOMED Code(s): 734801198 Comment: - Wound care consult, pending - Heel x-rays, bilateral calcaneal osteomyelitis cannot be excluded - Consider outpatient MRI if wounds not improving - Continue heel protectors (5) Sepsis Comment: - Present on admission with leukocytosis and tachycardia - Leukocytosis and tachycardia resolved - Continue ceftriaxone to treat UTI (6) Elevated troponin Code(s): R74.8 - ABNORMAL LEVELS OF OTHER SERUM ENZYMES SNOMED Code(s): 538138088 Comment: - Troponin 0.05, 0.04, 0.01 - Denies chest pain - Suspect secondary to demand ischemia r/t sepsis (7) Diabetes mellitus Code(s): E11.9 - TYPE 2 DIABETES MELLITUS WITHOUT COMPLICATIONS SNOMED Code(s) : 48601510 Comment: - HgA1C 8.7 - Glucose 140-240s - Continue finger sticks AC - Continue lispro sliding scale and Lantus - Hold Metformin for now (8) History of CVA (cerebrovascular accident) Code(s): Z86.73 - PRSNL HX OF TIA (TIA), AND CEREB INFRC W/O RESID DEFICITS SNOMED Code(s): 778532663 Comment: - With some dysarthia (9) Dementia Code(s): F03.90 - UNSPECIFIED DEMENTIA WITHOUT BEHAVIORAL DISTURBANCE SNOMED Code(s): 93070187 Comment: - Continue supportive care (10) Diastolic CHF Code(s): I50.30 - UNSPECIFIED DIASTOLIC (CONGESTIVE) HEART FAILURE SNOMED Code (s): 462089893 Comment: - No sign of acute exacerbation at this time - Daily weight and strict I+Os (11) HTN (hypertension) Code(s): I10 - ESSENTIAL (PRIMARY) HYPERTENSION SNOMED Code(s): 92886991 Comment: - SBP 150-170's - Contiue Metoprolol and cardizem - Will start amlodipine (12) DVT prophylaxis Code(s): KVV4112 - SNOMED Code(s): 332619787 Comment: ~Heparin SQ (13) DNR (do not resuscitate) Status and Disposition: Inpatient. Discharge back to [facility] when medically stable, suspect she will be ready in the AM.
[2017-05-15] MEDS: amLODIPine TAB* 5 MG PO SCH (17:22)
[2017-05-15] MEDS ORDERED: Polyethylene Glycol 3350* 17 GM PACKET PO PRN (17:42)
[2017-05-15] MEDS: Docusate LIQ* 100 MG/10 ML UDC PO PRN (20:52)
[2017-05-15] MEDS: Acetaminophen TAB* 325 MG PO PRN (22:12)
[2017-05-16] MEDS: Heparin VIAL(*) 5000 UNITS/ML VIAL (FIVE THOUSAND) SUBCUT SCH (05:28)
[2017-05-16] MEDS: Insulin LISPRO* 1 UNITS UNIT SUBCUT SCH ×2 (07:38→12:02)
[2017-05-16] MEDS: Metoprolol Tartrate TAB* 25 MG PO SCH (08:58)
[2017-05-16] MEDS: Diltiazem CD CAP* 180 MG PO SCH (08:58)
[2017-05-16] MEDS: amLODIPine TAB* 5 MG PO SCH (08:58)
[2017-05-16] MEDS: Insulin GLARGINE(*) 1 UNITS UNIT SUBCUT SCH (09:02)
[2017-05-16] MEDS: Docusate LIQ* 100 MG/10 ML UDC PO PRN (09:04)
[2017-05-16 09:15] LABS: Hematocrit 34 % (35-47); Hemoglobin 11.2 g/dl (12.0-16.0)
[2017-05-16 10:05] LABS: EGFR Non-African American 98.3 (>60)
[2017-05-16] MEDS ORDERED: Magnesium Hydroxide LIQ* 30 ML UDC PO PRN (11:24)
[2017-05-16] MEDS ORDERED: Bisacodyl SUPP* 10 MG SUPP PR PRN (11:24)
--- NOTE | 2017-05-16 11:30 | PN ---
Subjective Date of Service: 05/16/17 Interval History: Patient seen and examined at bedside. Denies fever, chills, shortness of breath , chest discomfort, N/V/D. Family History: Unchanged from Admission Social History: Unchanged from Admission Past Medical History: Unchanged from Admission Objective Active Medications: Acetaminophen (Tylenol Tab*) 650 mg PO Q4H PRN Reason: FEVER/PAIN Amlodipine Besylate (Norvasc Tab*) 5 mg PO DAILY HERB Dextrose (D50w Syringe 50 Ml*) 12.5 gm IV PUSH .FOR FS < 60 - SS PRN Reason: FS < 60 Diltiazem HCl (Cardizem Cd Cap*) 180 mg PO DAILY HERB Docusate Sodium (Colace Liq*) 100 mg PO BID PRN Reason: CONSTIPATION Heparin Sodium (Porcine) (Heparin Vial(*)) 5,000 units SUBCUT Q8HR HERB Ceftriaxone Sodium 1 gm/ (Sodium Chloride) 50 mls @ 200 mls/hr IVPB Q24H HERB Insulin Glargine (Lantus(*)) 10 units SUBCUT DAILY HERB Insulin Human Lispro (Humalog*) 0 units SUBCUT AC HERB Metoprolol Tartrate (Lopressor Tab*) 37.5 mg PO BID HERB Polyethylene Glycol/Electrolytes (Miralax*) 17 gm PO DAILY PRN Reason: CONSTIPATION Vital Signs - 8 hr 05/16/17 05/16/17 05/16/17 04:24 07:40 08:09 Temperature 98.1 F 98.3 F Pulse Rate 66 63 Respiratory 16 16 18 Rate Blood Pressure 156/59 171/57 (mmHg) O2 Sat by Pulse 98 99 Oximetry 05/16/17 09:38 Temperature Pulse Rate Respiratory Rate Blood Pressure (mmHg) O2 Sat by Pulse 99 Oximetry Oxygen Devices in Use Now: None Appearance: NAD, laying in bed Ears/Nose/Mouth/Throat: Mucous Membranes Moist Respiratory: Symmetrical Chest Expansion and Respiratory Effort, Clear to Auscultation Cardiovascular: NL Sounds; No Murmurs; No JVD, RRR Abdominal: NL Sounds; No Tenderness; No Distention Extremities: - - Mild bilateral LE edema Skin: - - Bilateral heels with pressure injury, dressing in place Neurological: Alert and Oriented x 3 Lines/Tubes/Other Access: Clean, Dry and Intact Peripheral IV - site benign Nutrition: Taking PO's Result Diagrams: 05/16/17 08:53 05/16/17 08:53 Additional Lab and Data: Right heel 05/14/17 Left heel 05/14/17 Microbiology and Other Data: Microbiology 05/12/17 15:03 Nasal Screen MRSA (PCR)(ESTELITA) - Final Nasal Mrsa Not Detected Assess/Plan/Problems-Billing Assessment: Ms. Huynh is an 87 y.o female with a history CVA, vtach, mild , LBBB, diastolic CHF, HTN, HLD, dementia, and chronic pain that presented to the emergency room for evaluation of increased confusion. - Patient Problems (1) UTI (urinary tract infection) Comment: - Afebrile, leukocytosis resolved - Thibodeaux patent - Urine culture with Proteus Mirabilis - Blood cultures, no growth day 3 - Continue ABX (2) Acute kidney injury Code(s): N17.9 - ACUTE KIDNEY FAILURE, UNSPECIFIED SNOMED Code(s): 49411068 Comment: - Resolved - Suspect secondary to UTI and possible urinary retention as reported issues with catheter prior to having it changed - Avoid nephrotoxic medications (3) Hypokalemia Code(s): E87.6 - HYPOKALEMIA SNOMED Code(s): 00861559 Comment: - Resolved (4) Pressure ulcer of both heels Code(s): L89.619 - PRESSURE ULCER OF RIGHT HEEL, UNSPECIFIED STAGE; L89.629 - PRESSURE ULCER OF LEFT HEEL, UNSPECIFIED STAGE SNOMED Code(s): 885383735 Comment: - Wound care consult - Heel x-rays, bilateral calcaneal osteomyelitis cannot be excluded - Consider outpatient MRI if wounds not improving - Continue heel protectors (5) Sepsis Comment: - Present on admission with leukocytosis and tachycardia - Leukocytosis and tachycardia resolved - Continue ceftriaxone to treat UTI (6) Elevated troponin Code(s): R74.8 - ABNORMAL LEVELS OF OTHER SERUM ENZYMES SNOMED Code(s): 683317492 Comment: - Troponin 0.05, 0.04, 0.01 - Denies chest pain - Suspect secondary to demand ischemia r/t sepsis (7) Diabetes mellitus Code(s): E11.9 - TYPE 2 DIABETES MELLITUS WITHOUT COMPLICATIONS SNOMED Code(s) : 67583897 Comment: - HgA1C 8.7 - Glucose 140-150s - Continue finger sticks AC - Continue lispro sliding scale and Lantus - Hold Metformin for now (8) History of CVA (cerebrovascular accident) Code(s): Z86.73 - PRSNL HX OF TIA (TIA), AND CEREB INFRC W/O RESID DEFICITS SNOMED Code(s): 741029917 Comment: - With some dysarthia (9) Dementia Code(s): F03.90 - UNSPECIFIED DEMENTIA WITHOUT BEHAVIORAL DISTURBANCE SNOMED Code(s): 61387720 Comment: - Continue supportive care (10) Diastolic CHF Code(s): I50.30 - UNSPECIFIED DIASTOLIC (CONGESTIVE) HEART FAILURE SNOMED Code (s): 367759249 Comment: - No sign of acute exacerbation at this time - Daily weight and strict I+Os (11) HTN (hypertension) Code(s): I10 - ESSENTIAL (PRIMARY) HYPERTENSION SNOMED Code(s): 99766106 Comment: - SBP 150-170's - Contiue Metoprolol, cardizem, and amlodipine (12) DVT prophylaxis Code(s): FHE8043 - SNOMED Code(s): 537238580 Comment: (13) DNR (do not resuscitate) Status and Disposition: Inpatient. Stable for discharge to [facility] today.
[2017-05-16] MEDS: cefTRIAXone(*) 1 GM in NS 0.9% 50 ML* 50 ML IVPB SCH (12:02)
[2017-05-16 12:33] VITALS: BP 150/56
--- NOTE | 2017-05-16 12:56 | DS ---
CC: [facility]; Dr. Rudy Ahmadi* DATE OF ADMISSION: 05/12/2017. DATE OF DISCHARGE: 05/16/2017. ATTENDING PHYSICIAN: Dr. Ashkan Rodríguez* (dictated by Terry Fishman NP). PRIMARY CARE PHYSICIAN: Dr. Rudy Ahmadi. PRIMARY DIAGNOSES: 1. Proteus mirabilis urinary tract infection complicated by chronic indwelling urinary catheter. 2. Altered mental status, resolved. Suspect secondary to acute infection. 3. Hypertension. 4. Sepsis, resolved. 5. Acute kidney injury, resolved. 6. Hypertroponemia, suspect secondary to demand ischemia in the setting of sepsis. 7. Bilateral heel unstageable pressure injuries. SECONDARY DIAGNOSES: 1. History of cerebral vascular accident. 2. Hyperlipidemia. 3. Diabetes mellitus type 2. STUDIES DONE WHILE IN THE HOSPITAL: 1. Chest x-ray, 05/12/2017: Radiologist's impression: No active cardiopulmonary disease. 2. Brain CT, 05/12/2017: Radiologist's impression: No acute intracranial pathology. Chronic small vessel ischemic changes. Chronic right cerebellar infarct. 3. Bilateral heel x-ray, 05/13/2017: Radiologist's impression: Bilateral calcaneal osteomyelitis cannot be excluded. DISCHARGE MEDICATIONS: New home medications: 1. Amlodipine 5 mg oral daily. 2. Bactrim DS 800/160 one tablet oral twice daily for 5 days. Continued home medications: 1. Acetaminophen 1,000 mg oral every 8 hours as needed for fever or pain. 2. Senokot S two tablets oral daily at bedtime. 3. Metformin 1,000 mg oral twice daily. 4. Metoprolol Tartrate 37.5 mg oral twice daily. 5. Lantus insulin 10 units subcutaneous daily. 6. Lispro insulin 4 units subcutaneous twice daily as needed for glucose greater than 250. 7. Diltiazem CD 180 mg oral daily. HISTORY OF PRESENT ILLNESS/HOSPITAL COURSE: Ms. Huynh is an 87-year-old female with a past medical history significant for history of cerebral vascular accident, mild aortic stenosis, left bundle branch block, diastolic congestive heart failure, hypertension, hyperlipidemia, dementia, and chronic pain who presented from [facility]. According to her daughter, the patient had been doing well since her admission to [facility] after she had a stroke in January of 2017. The patient had some dysarthria, but is frequently clear in her speech and able to make her needs known. She is generally weak and uses a wheelchair only for mobility. She has a chronic indwelling urinary catheter since her stroke who has reported recently trouble with the catheter with some difficulty changing it, and they changed the catheter and had a large amount of urine output with it reportedly. On the morning of the patient's presentation, she was found to be obtunded and difficult to arouse. She had a glucose of 500. For that reason, she was transported to the emergency room via EMS. While in the emergency room, she had a white blood cell count of 18.9, a CRP of 180, lactic acid of 2.4. She was found to have an acute kidney injury with a BUN of 66 and a creatinine of 1.36. She was also found to have an elevated troponin of 0.05 and she had a positive appearing urinalysis. It is also to note that the patient has chronic bilateral heel ulcerations. She had a chest x -ray showing no acute findings. She had a CT of her brain showing no acute findings and the Hospitalists were asked to evaluate the patient for admission. While in the hospital, the patient was treated for her urinary tract infection with IV Ceftriaxone. This grew proteus mirabilis. She had blood cultures negative on day three. She, at discharge, will have received five days of IV Ceftriaxone. Her urinary catheter was not exchanged as it had just recently been exchanged at the assisted. Her acute kidney injury resolved. It was suspected secondary to a possible urinary retention and her urinary tract infection. She has hypokalemia that resolved with replacement. She was also noted to have a mild hypomagnesium and received some replacement. Her leukocytosis resolved during her stay. She was slightly anemic, below her baseline during her stay. She was influenza A and B negative. Her sepsis resolved during her stay. He troponins were peaked at 0.05. It was suspected her hypertroponemia was secondary to demand ischemia secondary to her sepsis. Her glucoses have been fairly controlled. She has been doing well. She was seen in consultation by the [facility]ound Clinic for her heel ulcers with recommendations for dry sterile dressings. Ms. Huynh is stable for discharge today. Ms. Huynh is stable for discharge to [facility] today. Vital signs are as follows: Temperature 98.3, heart rate 63, respiratory rate 18, O2 sat 99 percent on room air, blood pressure 171/57. DISCHARGE PLAN: 1. In regards to the patient's proteus mirabilis urinary tract infection, she has received five days of IV Ceftriaxone here. Recommend continuing her for five more days of Bactrim twice daily to complete a ten day course of antibiotics due to her having a complicated UTI with the fact that she has a chronic indwelling catheter. 2. In regards to her sepsis, this has resolved. 3. In regards to her hypertension, she was started on Amlodipine. As she was already on Cardizem and Metoprolol with heart rate in the 50s to 60s, it was felt she would not tolerate increasing either of those agents, so the Amlodipine was added. 4. In regards to her bilateral heel ulcers, please continue daily dry sterile dressings and keep her heels floating off the bed at all times. 5. All of her usual home medications have been continued. She should be seen in follow-up by a provider in the next week or per facility protocol. She should return to the emergency room for any complaints of chest pain or shortness of breath. POINTS FOR FOLLOW-UP: If the patient's heels do not improve, please discuss with the daughter the possibility of getting an MRI to fully eval for osteomyelitis. Please also set the patient up with continued Wound Clinic follow -up appointments to ensure that her heels are improving and she is getting the appropriate dressings. As far as her blood pressure, please continue to monitor her blood pressure. Her blood pressures have started to improve, but she is still occasionally with systolic blood pressures in the 170s. This is a summarized report of a complex medical history and hospital stay. For further details, please see the entire medical record. Time for this discharge was approximately 30 minutes, greater than half of that was spent with the patient and on the phone with the daughter discussing discharge plans and instructions. CONDITION ON DISCHARGE: Stable. TERRY FISHMAN, YOLETTE [id number]/[facility] #: [id number] JUANA
== END 2017-05-16 13:40 | DRG 698 ==
LOC: ED 12:13 → MED 13:53
PROVIDERS: ADMIT Internal Medicine; ATTEND Internal Medicine
DX: T83.518A Infection and inflammatory reaction due to other urinary catheter, initial encounter (principal); A41.9 Sepsis, unspecified organism; I47.2 Ventricular tachycardia; N17.9 Acute kidney failure, unspecified; I24.8 Other forms of acute ischemic heart disease; I11.0 Hypertensive heart disease with heart failure; I50.30 Unspecified diastolic (congestive) heart failure; E83.42 Hypomagnesemia; N39.0 Urinary tract infection, site not specified; L89.620 Pressure ulcer of left heel, unstageable; L89.610 Pressure ulcer of right heel, unstageable; B96.4 Proteus (mirabilis) (morganii) as the cause of diseases classified elsewhere; E11.9 Type 2 diabetes mellitus without complications; X58.XXXA Exposure to other specified factors, initial encounter; R74.8 Abnormal levels of other serum enzymes; E78.5 Hyperlipidemia, unspecified; Z66 Do not resuscitate; I35.0 Nonrheumatic aortic (valve) stenosis; I44.7 Left bundle-branch block, unspecified; F03.90 Unspecified dementia, unspecified severity, without behavioral disturbance, psychotic disturbance, mood disturbance, and anxiety; G89.29 Other chronic pain; R33.9 Retention of urine, unspecified; E87.6 Hypokalemia; Z86.73 Personal history of transient ischemic attack (TIA), and cerebral infarction without residual deficits; Z95.0 Presence of cardiac pacemaker; Z79.84 Long term (current) use of oral hypoglycemic drugs; Z79.1 Long term (current) use of non-steroidal anti-inflammatories (NSAID); Z79.4 Long term (current) use of insulin; Z79.899 Other long term (current) drug therapy; Z88.0 Allergy status to penicillin; Z91.018 Allergy to other foods
CPT/HCPCS: 36415; 70450; 71045; 80048; 80053; 81003; 81015; 83036; 83605; 83690; 83735; 83880; 84145; 84484; 85014; 85018; 85025; 85610; 85730; 86140; 87040; 87077; 87086; 87184; 87186; 87502; 87641; 93005; 94760; 99285; A9270-GY; J0696; J1644

== ENCOUNTER 2017-06-27 09:23 | Inpatient (IN) | payer MEDICARE ==
[2017-06-27] MEDS ORDERED: NS 0.9% 1000 ML*IV.FLUID IV ONE (09:42)
[2017-06-27] MEDS ORDERED: cefTRIAXone(*) 1 GM in NS 0.9% 50 ML* 50 ML IVPB ONE (09:45)
[2017-06-27 11:06] LABS: EGFR Non-African American 28.8 (>60)
--- NOTE | 2017-06-27 11:08 | RAD ---
INDICATION: Altered mental status COMPARISON: May 12, 2017 TECHNIQUE: An AP portable view obtained at 1035 hours is submitted. FINDINGS: Bones/Soft Tissues: There are no acute bony findings. There is left-sided chronic pacemaker Cardiomediastinal: The cardiomediastinal silhouette is normal. Lungs: There are no infiltrates. Pleura: There are no pleural effusions. Other: None IMPRESSION: NO ACTIVE DISEASE.
[2017-06-27 11:09] LABS: Urine Appearance Turbid; Urine Blood 3+ (Negative); Urine Color Red; Urine Ketones Negative (Negative); Urine Protein 2+(100 mg/dL) (Negative); Urine Specific Gravity 1.016 (1.010-1.030); Urine Urobilinogen Negative (Negative)
--- NOTE | 2017-06-27 11:09 | RAD ---
HISTORY: Altered mental status COMPARISONS: May 12, 2017, February 01, 2017 TECHNIQUE: Multiple contiguous axial CT scans were obtained of the head without intravenous contrast. FINDINGS: HEMORRHAGE/INFARCT: There is no hemorrhage or acute infarct. MASSES/SHIFT: There is no parenchymal mass. There is no shift. EXTRA-AXIAL SPACES: There is a calcified extra-axial mass along the left frontal convexity measuring 0.8 cm in depth most consistent with meningioma, stable from earlier examinations. SULCI AND VENTRICLES: There is diffuse and proportional enlargement of the sulci and ventricles. CEREBRUM: There is hypoattenuation of the periventricular and subcortical white matter. BRAINSTEM: There are no focal parenchymal abnormalities. CEREBELLUM: There is encephalomalacia of the right superior cerebellum consistent with remote infarct, stable. VESSELS: The vessels are grossly normal. PARANASAL SINUSES: The paranasal sinuses are clear. ORBITS: The orbits are unremarkable. BONES AND SOFT TISSUE: No bone or soft tissue abnormalities are noted. OTHER: None IMPRESSION: 1. NO ACUTE INTRACRANIAL PATHOLOGY. 2. DIFFUSE INVOLUTIONAL CHANGE WITH CHRONIC SMALL VESSEL ISCHEMIC CHANGES. 3. 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
[2017-06-27 11:42] LABS: Hematocrit 39 % (35-47); Hemoglobin 12.6 g/dl (12.0-16.0); Mean Corpuscular HGB Conc 33 g/dl (31-36); Mean Corpuscular Hemoglobin 31 pg (27-31); Mean Corpuscular Volume 95 fL (80-97); Platelet Count 272 10^3/ul (150-450); Red Blood Count 4.08 10^6/ul (4.0-5.4); Red Cell Distribution Width 16 % (10.5-15); White Blood Count 15.2 10^3/ul (3.5-10.8)
[2017-06-27 12:36] LABS: ABS Basophils 0 10^3/ul (0-0.2); ABS Eosinophils 0 10^3/ul (0-0.6); ABS Lymphocytes 1.8 10^3/ul (1.0-4.8); ABS Monocytes 0.9 10^3/ul (0-0.8); ABS Neutrophils 12.6 10^3/ul (1.5-7.7)
[2017-06-27 12:39] LABS: Monocytes % 3 % (0-7)
[2017-06-27] MEDS ORDERED: Acetaminophen SUPP* 650 MG SUPP PR PRN (13:08)
[2017-06-27] MEDS ORDERED: Metoprolol Tartrate IV* 1 MG/ML 5 ML VIAL IV PRN (13:08)
[2017-06-27] MEDS ORDERED: hydrALAZINE IV* 20 MG/ML VIAL IV SLOW PU PRN (13:08)
[2017-06-27] MEDS ORDERED: Aspirin SUPP* 300 MG PR SCH (14:00)
[2017-06-27] MEDS: Heparin VIAL(*) 5000 UNITS/ML VIAL (FIVE THOUSAND) SUBCUT SCH ×2 (14:43→21:23)
[2017-06-27] MEDS: NS 0.9% 1000 ML* 1,000 ML IV SCH ×2 (14:46→23:12)
--- NOTE | 2017-06-27 16:10 | HP ---
CC: Dr. Jovita Kearns at [facility] * HISTORY AND PHYSICAL: DATE OF ADMISSION: 06/27/17 TIME OF EVALUATION: 12:45 PRIMARY CARE PROVIDER: Dr. Jovita Kearns at [facility]. CHIEF COMPLAINT: "She is unresponsive" as per daughter. HISTORY OF PRESENT ILLNESS: Ms. Huynh is an 87-year-old lady with past medical history of CVA in January 2017, ventricular tachycardia, left bundle- branch block, status post pacemaker, diastolic CHF, hypertension, hyperlipidemia , dementia, chronic pain who was brought into the emergency room after being found less responsive this morning at [facility]. The patient is unable to provide any history and information is obtained from her daughter, Nohelia Stauffer at bedside. The daughter states that she saw her last Sunday and the patient was at her baseline. She did not see her over the weekend and she saw her again yesterday in the morning. She felt that the patient looked different, was staring, slumped over in her wheelchair, able to respond, but seemed to be very tired. She went to an appointment with Dr. Fritz to have her pacemaker checked and she returned to the skilled nursing around 1230. As per daughter the patient has difficulty managing utensils, but she is able to feed herself, but yesterday she was not. Last night felt she was very tired. The patient was placed in her bed to nap and she napped the whole afternoon. In the evening, the daughter received a call from the nurse at [facility] stating that they were having issues with her Thibodeaux catheter and they thought it was probably blocked. They had difficulty, but were able to change her Thibodeaux catheter yesterday. The daughter stayed with her at [facility] until 11 last night and she stated the patient was very sleepy. This morning, the patient was found unresponsive in her bed and she was brought into the emergency room for further evaluation. The daughter also notes that last night the patient's glucose was elevated and she received multiple doses of insulin to bring her numbers down. As far as the daughter knows there was no fever or chills while in the skilled nursing. PAST MEDICAL HISTORY: 1. CVA in January 2017 involving the right cerebellum extending to the right cerebellar peduncle. 2. Status post pacemaker. 3. Mild aortic stenosis. 4. Left bundle-branch block. 5. Diastolic CHF. 6. Hypertension. 7. Hyperlipidemia. 8. Dementia. 9. Chronic pain. 10. Chronic Thibodeaux catheter. 11. Recent admission for proteus mirabilis urinary infection associated with her chronic Thibodeaux from 05/12/17 to 05/16/17. 12. Bilateral heel unstageable pressure ulcers, present on admission. MEDICATION LIST: 1. Acetaminophen 1000 mg p.o. q. 8 hours p.r.n. pain or fever. 2. Amlodipine 5 mg p.o. daily. 3. Cardizem CD 180 mg p.o. daily. 4. Lantus 10 units subcutaneously daily. 5. Lispro 4 units subcutaneously b.i.d. for glucose greater than 250. 6. Metformin 1000 mg p.o. b.i.d. 7. Metoprolol tartrate 37.5 mg p.o. b.i.d. 8. Senna/docusate 2 tablets p.o. at bedtime. ALLERGIES: Allergies with PENICILLIN, the patient experienced hives and with WHEAT, she has rash and itching. SOCIAL HISTORY: No history of alcohol or tobacco drug use. Since she had her stroke in January last year, she has been at [facility]. Surrogate decision maker is her daughter Nohelia Stauffer. The patient is a do not resuscitate. REVIEW OF SYSTEMS: I am unable to obtain the review of systems for the patient due to her lethargy. PHYSICAL EXAMINATION GENERAL: The patient is elderly lady lying in the ER stretcher. Lethargic, but she opens eyes with a sternal rub. VITAL SIGNS: Temperature 98.8, heart rate is 90, respiratory rate is 15, oxygen saturation 98% on 2 L of nasal cannula, blood pressure is 157/64. CHEST: Breath sounds bilaterally with no added sounds. CVS: Normal S1, S2. Regular rate and rhythm. ABDOMEN: Soft, nontender, nondistended. Bowel sounds are present. EXTREMITIES: There are clean dressing intact to bilateral feet. NEUROLOGIC: She is lethargic but arousable with sternal rub, open her eyes, but nonverbal. She withdraws all 4 extremities from pain. DIAGNOSTIC STUDIES/LAB DATA: The patient had a CBC that showed WBC of 15.2, hemoglobin of 12.6, hematocrit of 39, platelets of 272 with 53% neutrophils and 27% bands. INR was 1. VBG showed a pH of 7.32, CO2 64, pO2 26. Chemistry showed a sodium of 145, potassium of 4.3, chloride of 108, bicarb of 26, BUN of 82. We have a creatinine of 1.68. Glucose of 185, lactic acid 1.5, calcium 10.1. LFTs are normal except for an alk phos of 106. First troponin was 0.22. CRP 382.7. Procalcitonin was 4. Urinalysis show 2+ protein, 3+ blood, 3+ LE, 3+ WBC, 3+ RBCs. Chest x-ray showed no active disease. CT of the brain showed no acute intracranial pathology. Diffuse involutional change with chronic small vessel ischemic changes, chronic infarct of the right superior cerebellum EKG done on 06/27/17 at 9:52 a.m. showed V-paced complexes. ASSESSMENT AND PLAN: Ms. Huynh is an 87-year-old lady with a past medical history of cerebrovascular accident, status post pacemaker, aortic stenosis, diastolic congestive heart failure, hypertension, hyperlipidemia, dementia, recent admission for a Thibodeaux catheter related proteus urinary tract infection, who presents to the emergency room with lethargy, found to have sepsis with most likely another episode of urinary tract infection. 1. Severe sepsis. The patient met sepsis criteria with tachycardia and leukocytosis. She also has significant bandemia, is in acute renal failure and has elevation of troponin and encephalopathy. Source of infection appears to be another urinary tract infection. 2. Urinary tract infection, Thibodeaux catheter related, present on admission. The patient will receive IV fluid resuscitation and should be started empirically on ceftriaxone. She already received 1 dose in the emergency room and had no rashes. We are going to follow her cultures. She is going to have a renal/bladder ultrasound to rule out hydronephrosis, but I believe the recent manipulation of her Thibodeaux may be part of the issue causing this presentation. On her prior admission, she grew proteus that was sensitive to ceftriaxone, so we are going to continue this for now and follow her cultures. 3. Diabetes. As per daughter report, it was uncontrolled yesterday, but her numbers are better at this point, so we are going to continue Lantus, hold her metformin and monitor her glucose. 4. Acute kidney injury. Likely acute tubular necrosis secondary to sepsis and dehydration. The patient will receive a fluid resuscitation. She may also have a component of post renal failure. Considering the fact her Thibodeaux was obstructed yesterday. 5. Troponin elevation. The patient's EKG shows only V-paced rhythm. We are going to trend her troponins. She will receive aspirin. We are going to continue beta-blockers as tolerated. 6. DVT prophylaxis. The patient has a score of 3 on the DVT Prophylaxis Risk Assessment Guide and she will be started on subcutaneous heparin. 7. Code status, was discussed with the daughter and the patient is a do not resuscitate/do not intubate and the daughter wants to be very conservative with her treatment. The plan at this point is to treat her with IV fluids and antibiotics, but if the patient does not respond they will be interested in palliative care and consultation to switch her goal to comfort measures only. TIME SPENT: Approximately 65 minutes spent with daughter interview, patient's physical examination, medical records review to complete this admission, more than half of this time was spent [id number] with the patient and coordination of care. [id number]/[facility] #: [id number] JUANA
[2017-06-27] MEDS: Insulin REGULAR(*) 1 UNITS UNIT SUBCUT SCH ×2 (17:39→23:14)
--- NOTE | 2017-06-27 19:37 | RAD ---
INDICATION: Urinary tract infection. COMPARISON: There are no prior studies available for comparison. TECHNIQUE: Multiple real-time images of the kidneys and urinary bladder were obtained. FINDINGS: The kidneys are normal in size shape and echogenicity. The right kidney measured 10.2 x 5.0 x 5.2 cm and the left kidney measured 10.2 x 5.0 x 4.3 cm. No focal renal abnormality is seen. There is mild caliectasis in the left kidney which may indicate mild hydronephrosis. There is a Thibodeaux catheter within the urinary bladder. No focal bladder wall thickening is seen. The ureteral jets were not visualized. The bladder volume during the study was on 124 mL. IMPRESSION: POSSIBLE MILD LEFT HYDRONEPHROSIS.
--- NOTE | 2017-06-27 19:56 | ED ---
Jonel Desouza Gabriel, scribed for Freddie Piña MD on 06/27/17 at 0945 . Altered Mental Status - HPI Summary HPI Summary: This patient is a 87 year old F BIBA to [facility] with a chief complaint of AMS that was noticed this morning by the staff at [facility]. The staff called EMS reporting generalized weakness and decreased responsiveness. Pt has a hx of UTI and there is cloudy urine in her catheter bag. Hx of CVA, dementia, aphasia. Currently patient has her eyes open but is not responsive and does not follow commands. She does respond to painful stimuli. LEVEL 5 CAVEAT: HPI limited due to patient not speaking - History Of Current Complaint Chief Complaint: EDAltMentalStatus Stated Complaint: UNRESPONSIVE Hx Obtained From: EMS, Medical Records Hx From Patient Unobtainable Due To: Altered Mental Status Onset/Duration: Still Present Timing: Constant Severity Initially: Severe Severity Currently: Severe Character: Responsiveness - Allergies/Home Medications Allergies/Adverse Reactions: Allergies Allergy/AdvReac Type Severity Reaction Status Date / Time Penicillins Allergy Intermediate Hives Verified 06/27/17 09:49 wheat Allergy Mild Rash And Verified 06/27/17 09:49 Itching PMH/Surg Hx/FS Hx/Imm Hx Endocrine/Hematology History: Reports: Hx Diabetes - type 2 Cardiovascular History: Reports: Hx Cardiomegaly, Hx Coronary Artery Disease, Hx Hypercholesterolemia, Hx Hypertension, Hx Pacemaker/ICD, Other Cardiovascular Problems/Disorders - HLD Sensory History: Reports: Hx Cataracts, Hx Glaucoma Denies: Hx Contacts or Glasses, Hx Hearing Aid Opthamlomology History: Reports: Hx Cataracts, Hx Glaucoma Denies: Hx Contacts or Glasses Neurological History: Reports: Hx Dementia - mild - Surgical History Surgery Procedure, Year, and Place: pacemaker= 2009 cataracts 2014 Infectious Disease History: No Infectious Disease History: Denies: Traveled Outside the [place] in Last 30 Days - Family History Known Family History: Positive: Other - Mother: CVA - Social History Occupation: Unemployed Lives: [place] [facility] [place] Alcohol Use: unable to determine Substance Use Type: Reports: None Smoking Status (MU): Never Smoked Tobacco Type: Cigarettes Review of Systems - ROS Summary Review of Systems Summary: LEVEL 5 CAVEAT: ROS limited due to patient not speaking Negative: Fever Genitourinary: Other - cloudy urine seen in cath bag Neurological: Other - AMS All Other Systems Reviewed And Are Negative: No Physical Exam - Summary Physical Exam Summary: LEVEL 5 CAVEAT: PE limited due to patient not speaking General: well-appearing, no pain distress Skin: warm, color reflects adequate perfusion, dry Head: normal Eyes: EOMI, HAMZAH ENT: normal Neck: supple, nontender Respiratory: CTA, breath sounds present Cardiovascular: RRR Abdomen: soft, nontender Bowel: present Musculoskeletal: patient will not raises limbs when asked. When arms are passively lifted there is no effort against gravity or provider. Feet withdrawal to stimuli. There is dressing on both feet Neurological: eyes are open Opens eyes to voice. Non verbal. GCS: 10 Triage Information Reviewed: Yes Vital Signs On Initial Exam: Initial Vitals Temp Pulse Resp BP Pulse Ox 98.8 F 92 17 159/87 97 06/27/17 09:30 06/27/17 09:30 06/27/17 09:30 06/27/17 09:30 06/27/17 09:30 Vital Signs Reviewed: Yes Completion Of Physical Exam Limited Due To: Dementia, Altered Mental Status, Level 5 Diagnostics - Vital Signs Vital Signs Temp Pulse Resp BP Pulse Ox 06/27/17 09:30 98.8 F 92 17 159/87 97 - Laboratory Lab Results: Lab Results 06/27/17 06/27/17 06/27/17 Range/Units 09:42 10:06 10:14 WBC (3.5-10.8) 10^3/ul RBC (4.0-5.4) 10^6/ul Hgb (12.0-16.0) g/dl Hct (35-47) % MCV (80-97) fL MCH (27-31) pg MCHC (31-36) g/dl RDW (10.5-15) % Plt Count (150-450) 10^3/ul MPV (7.4-10.4) um3 Neut % (Auto) Lymph % (Auto) [place] % (Auto) Eos % (Auto) Baso % (Auto) Absolute Neuts (auto) (1.5-7.7) 10^3/ul Absolute Lymphs (auto) (1.0-4.8) 10^3/ul Absolute Monos (auto) (0-0.8) 10^3/ul Absolute Eos (auto) (0-0.6) 10^3/ul Absolute Basos (auto) (0-0.2) 10^3/ul Absolute Nucleated RBC Immature Gran % (0-9) % Neutrophils % (38-83) % Band Neutrophils % (0-8) % Lymphocytes % (25-47) % Monocytes % (0-7) % Eosinophils % (0-6) % Basophils % (0-2) % Metamyelocytes % (0-2) % Nucleated RBC % Abs Neuts (Manual) (1.5-7.7) 10^3/ul Abs Lymphs (Manual) (1.0-4.8) 10^3/ul Abs Monocytes (Manual) (0-0.8) 10^3/ul Absolute Eos (Manual) (0-0.6) 10^3/ul Abs Basophils (Manual) (0-0.2) 10^3/ul Normal RBC Morphology (Normal) INR (Anticoag Therapy) (0.77-1.02) APTT (26.0-36.3) seconds VBG pH (7.33-7.43) VBG pCO2 (41-51) mmHg VBG pO2 (35-45) mmHg VBG HCO3 (24-28) mmol/L VBG O2 Saturation (70-80) % VBG Base Excess (0-4) Sodium 145 (139-145) mmol/L Potassium 4.3 (3.5-5.0) mmol/L Chloride 108 (101-111) mmol/L Carbon Dioxide 26 (22-32) mmol/L Anion Gap 11 (2-11) mmol/L BUN 82 H (6-24) mg/dL Creatinine 1.68 H (0.51-0.95) mg/dL Est GFR ( Amer) 37.1 (>60) Est GFR (Non-Af Amer) 28.8 (>60) BUN/Creatinine Ratio 48.8 H (8-20) Glucose 185 H (70-100) mg/dL Lactic Acid (0.5-2.0) mmol/L Calcium 10.1 (8.6-10.3) mg/dL Total Bilirubin 0.30 (0.2-1.0) mg/dL AST 15 (13-39) U/L ALT 9 (7-52) U/L Alkaline Phosphatase 106 H (34-104) U/L Troponin I 0.22 H* (<0.04) ng/mL C-Reactive Protein 382.70 H (< 5.00) mg/L B-Natriuretic Peptide ( - 100) pg/mL Total Protein 7.1 (6.4-8.9) g/dL Albumin 3.3 (3.2-5.2) g/dL Globulin 3.8 (2-4) g/dL Albumin/Globulin Ratio 0.9 L (1-3) Lipase < 10 L (11.0-82.0) U/L Procalcitonin 4.0 H (<0.6) ng/mL Urine Color Red A Urine Appearance Turbid Urine pH 5.0 (5-9) Ur Specific [place] 1.016 (1.010-1.030) Urine Protein 2+(100 mg/dl) A (Negative) Urine Ketones Negative (Negative) Urine Blood 3+ A (Negative) Urine Nitrate Negative (Negative) Urine Bilirubin Negative (Negative) Urine Urobilinogen Negative (Negative) Ur Leukocyte Esterase 3+ A (Negative) Urine WBC (Auto) 3+(>20/hpf) A (Absent) Urine RBC (Auto) 3+(>10/hpf) A (Absent) Urine Bacteria Absent (Absent) Urine Glucose Negative (Negative) 06/27/17 06/27/17 06/27/17 Range/Units 11:25 11:25 11:25 WBC 15.2 H (3.5-10.8) 10^3/ul RBC 4.08 (4.0-5.4) 10^6/ul Hgb 12.6 (12.0-16.0) g/dl Hct 39 (35-47) % MCV 95 (80-97) fL MCH 31 (27-31) pg MCHC 33 (31-36) g/dl RDW 16 H (10.5-15) % Plt Count 272 (150-450) 10^3/ul MPV 8.0 (7.4-10.4) um3 Neut % (Auto) Not Reportable Lymph % (Auto) Not Reportable [place] % (Auto) Not Reportable Eos % (Auto) Not Reportable Baso % (Auto) Not Reportable Absolute Neuts (auto) 12.6 H (1.5-7.7) 10^3/ul Absolute Lymphs (auto) 1.8 (1.0-4.8) 10^3/ul Absolute Monos (auto) 0.9 H (0-0.8) 10^3/ul Absolute Eos (auto) 0 (0-0.6) 10^3/ul Absolute Basos (auto) 0 (0-0.2) 10^3/ul Absolute Nucleated RBC Not Reportable Immature Gran % 28 H (0-9) % Neutrophils % 53 (38-83) % Band Neutrophils % 27 H (0-8) % Lymphocytes % 16 L (25-47) % Monocytes % 3 (0-7) % Eosinophils % 0 (0-6) % Basophils % 0 (0-2) % Metamyelocytes % 1 (0-2) % Nucleated RBC % Not Reportable Abs Neuts (Manual) 8.1 H (1.5-7.7) 10^3/ul Abs Lymphs (Manual) 2.4 (1.0-4.8) 10^3/ul Abs Monocytes (Manual) 0.5 (0-0.8) 10^3/ul Absolute Eos (Manual) 0 (0-0.6) 10^3/ul Abs Basophils (Manual) 0 (0-0.2) 10^3/ul Normal RBC Morphology Normal (Normal) INR (Anticoag Therapy) 1.00 (0.77-1.02) APTT 29.9 (26.0-36.3) seconds VBG pH (7.33-7.43) VBG pCO2 (41-51) mmHg VBG pO2 (35-45) mmHg VBG HCO3 (24-28) mmol/L VBG O2 Saturation (70-80) % VBG Base Excess (0-4) Sodium (139-145) mmol/L Potassium (3.5-5.0) mmol/L Chloride (101-111) mmol/L Carbon Dioxide (22-32) mmol/L Anion Gap (2-11) mmol/L BUN (6-24) mg/dL Creatinine (0.51-0.95) mg/dL Est GFR ( Amer) (>60) Est GFR (Non-Af Amer) (>60) BUN/Creatinine Ratio (8-20) Glucose (70-100) mg/dL Lactic Acid (0.5-2.0) mmol/L Calcium (8.6-10.3) mg/dL Total Bilirubin (0.2-1.0) mg/dL AST (13-39) U/L ALT (7-52) U/L Alkaline Phosphatase (34-104) U/L Troponin I (<0.04) ng/mL C-Reactive Protein (< 5.00) mg/L B-Natriuretic Peptide 146 H ( - 100) pg/mL Total Protein (6.4-8.9) g/dL Albumin (3.2-5.2) g/dL Globulin (2-4) g/dL Albumin/Globulin Ratio (1-3) Lipase (11.0-82.0) U/L Procalcitonin (<0.6) ng/mL Urine Color Urine Appearance Urine pH (5-9) Ur Specific [place] (1.010-1.030) Urine Protein (Negative) Urine Ketones (Negative) Urine Blood (Negative) Urine Nitrate (Negative) Urine Bilirubin (Negative) Urine Urobilinogen (Negative) Ur Leukocyte Esterase (Negative) Urine WBC (Auto) (Absent) Urine RBC (Auto) (Absent) Urine Bacteria (Absent) Urine Glucose (Negative) 06/27/17 06/27/17 Range/Units 11:25 11:30 WBC (3.5-10.8) 10^3/ul RBC (4.0-5.4) 10^6/ul Hgb (12.0-16.0) g/dl Hct (35-47) % MCV (80-97) fL MCH (27-31) pg MCHC (31-36) g/dl RDW (10.5-15) % Plt Count (150-450) 10^3/ul MPV (7.4-10.4) um3 Neut % (Auto) Lymph % (Auto) [place] % (Auto) Eos % (Auto) Baso % (Auto) Absolute Neuts (auto) (1.5-7.7) 10^3/ul Absolute Lymphs (auto) (1.0-4.8) 10^3/ul Absolute Monos (auto) (0-0.8) 10^3/ul Absolute Eos (auto) (0-0.6) 10^3/ul Absolute Basos (auto) (0-0.2) 10^3/ul Absolute Nucleated RBC Immature Gran % (0-9) % Neutrophils % (38-83) % Band Neutrophils % (0-8) % Lymphocytes % (25-47) % Monocytes % (0-7) % Eosinophils % (0-6) % Basophils % (0-2) % Metamyelocytes % (0-2) % Nucleated RBC % Abs Neuts (Manual) (1.5-7.7) 10^3/ul Abs Lymphs (Manual) (1.0-4.8) 10^3/ul Abs Monocytes (Manual) (0-0.8) 10^3/ul Absolute Eos (Manual) (0-0.6) 10^3/ul Abs Basophils (Manual) (0-0.2) 10^3/ul Normal RBC Morphology (Normal) INR (Anticoag Therapy) (0.77-1.02) APTT (26.0-36.3) seconds VBG pH 7.32 L (7.33-7.43) VBG pCO2 64 H (41-51) mmHg VBG pO2 26 L (35-45) mmHg VBG HCO3 27.5 (24-28) mmol/L VBG O2 Saturation 42.0 L (70-80) % VBG Base Excess 5.1 H (0-4) Sodium (139-145) mmol/L Potassium (3.5-5.0) mmol/L Chloride (101-111) mmol/L Carbon Dioxide (22-32) mmol/L Anion Gap (2-11) mmol/L BUN (6-24) mg/dL Creatinine (0.51-0.95) mg/dL Est GFR ( Amer) (>60) Est GFR (Non-Af Amer) (>60) BUN/Creatinine Ratio (8-20) Glucose (70-100) mg/dL Lactic Acid 1.5 (0.5-2.0) mmol/L Calcium (8.6-10.3) mg/dL Total Bilirubin (0.2-1.0) mg/dL AST (13-39) U/L ALT (7-52) U/L Alkaline Phosphatase (34-104) U/L Troponin I (<0.04) ng/mL C-Reactive Protein (< 5.00) mg/L B-Natriuretic Peptide ( - 100) pg/mL Total Protein (6.4-8.9) g/dL Albumin (3.2-5.2) g/dL Globulin (2-4) g/dL Albumin/Globulin Ratio (1-3) Lipase (11.0-82.0) U/L Procalcitonin (<0.6) ng/mL Urine Color Urine Appearance Urine pH (5-9) Ur Specific [place] (1.010-1.030) Urine Protein (Negative) Urine Ketones (Negative) Urine Blood (Negative) Urine Nitrate (Negative) Urine Bilirubin (Negative) Urine Urobilinogen (Negative) Ur Leukocyte Esterase (Negative) Urine WBC (Auto) (Absent) Urine RBC (Auto) (Absent) Urine Bacteria (Absent) Urine Glucose (Negative) Result Diagrams: 06/27/17 11:25 06/27/17 09:42 Lab Statement: Any lab studies that have been ordered have been reviewed, and results considered in the medical decision making process. - Radiology CXR Radiology Interpretation Completed By: Radiologist - no active disease ED physician has reviewed this radiology report. - CT CT Brain CT Interpretation Completed By: Radiologist - 1. NO ACUTE INTRACRANIAL PATHOLOGY. 2. DIFFUSE INVOLUTIONAL CHANGE WITH CHRONIC SMALL VESSEL ISCHEMIC CHANGES. 3. 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 ED physician has reviewed this radiology report. - EKG 09:52 Cardiac Rate: NL EKG Rhythm: Sinus Rhythm - ventricular paced at 90 bpm EKG Interpretation: ventricular paced at 90 bpm Altered Mental Statu Course/Dx - Course Course Of Treatment: ADMIT HOSPITALIST. CRITICAL CARE TIME LESS THAN 30 MINUTES. - Diagnoses Provider Diagnoses: Sepsis, UTI (urinary tract infection) - Provider Notifications Discussed Care Of Patient With: Nicki Singletary Time Discussed With Above Provider: 11:56 Instructed by Provider To: Admit As Inpatient Discharge - Sign-Out/Discharge Documenting (check all that apply): Discharge - Discharge Plan Condition: Stable Disposition: ADMITTED TO [facility] - Billing Disposition and Condition Condition: STABLE Disposition: [facility] [place] The documentation as recorded by the Jonel barnett Gabriel accurately reflects the service I personally performed and the decisions made by me, Freddie Piña MD.
[2017-06-27] MEDS: Metoprolol Tartrate TAB* 25 MG PO SCH (21:23)
[2017-06-28] MEDS: Heparin VIAL(*) 5000 UNITS/ML VIAL (FIVE THOUSAND) SUBCUT SCH ×3 (05:05→20:54)
[2017-06-28] MEDS: Insulin REGULAR(*) 1 UNITS UNIT SUBCUT SCH (05:08)
[2017-06-28 06:05] LABS: ABS Basophils 0.1 10^3/ul (0-0.2); ABS Eosinophils 0.1 10^3/ul (0-0.6); ABS Lymphocytes 1.8 10^3/ul (1.0-4.8); ABS Monocytes 0.3 10^3/ul (0-0.8); ABS Neutrophils 10.2 10^3/ul (1.5-7.7); ABS Nucleated RBC 0 10^3/ul; Eosinophil % 1.1 % (0-6); Hematocrit 34 % (35-47); Hemoglobin 11.2 g/dl (12.0-16.0); Mean Corpuscular HGB Conc 33 g/dl (31-36); Mean Corpuscular Hemoglobin 31 pg (27-31); Mean Corpuscular Volume 95 fL (80-97); Mean Platelet Volume 7.7 um3 (7.4-10.4); Nucleated Red Blood Cells % 0; Platelet Count 231 10^3/ul (150-450); Red Blood Count 3.63 10^6/ul (4.0-5.4); Red Cell Distribution Width 16 % (10.5-15); White Blood Count 12.5 10^3/ul (3.5-10.8)
[2017-06-28 06:24] LABS: EGFR Non-African American 58.5 (>60)
[2017-06-28] MEDS ORDERED: Dextrose 50% Syringe 50 ML* 25 GM/50 ML SYRINGE IV PUSH PRN (08:37)
[2017-06-28] MEDS: cefTRIAXone(*) 1 GM in NS 0.9% 50 ML* 50 ML IVPB SCH (08:57)
[2017-06-28] MEDS ORDERED: Insulin GLARGINE(*) 1 UNITS UNIT SUBCUT SCH (09:00)
[2017-06-28] MEDS: Metoprolol Tartrate TAB* 25 MG PO SCH ×2 (09:06→20:54)
[2017-06-28] MEDS: Aspirin EC TAB* 81 MG TAB.EC PO SCH (09:06)
[2017-06-28] MEDS: amLODIPine TAB* 5 MG PO SCH (09:07)
[2017-06-28] MEDS: Diltiazem CD CAP* 180 MG PO SCH (09:07)
[2017-06-28] MEDS: Insulin LISPRO* 1 UNITS UNIT SUBCUT SCH ×3 (13:37→20:54)
--- NOTE | 2017-06-28 15:50 | PN ---
Subjective Date of Service: 06/28/17 Interval History: HOSPITALIST PROGRESS NOTE Patient seen and examined at bedside. She's much more awake today. Doesn't remember how she got to the hospital or what happened. Offers no complaints at this time. Family History: Unchanged from Admission Social History: Unchanged from Admission Past Medical History: Unchanged from Admission Objective Active Medications: Acetaminophen (Tylenol Supp*) 650 mg [place] Q4H PRN PRN Reason: Pain/fever Last Admin: 06/27/17 21:23 Dose: 650 mg Amlodipine Besylate (Norvasc Tab*) 5 mg PO DAILY [facility] Last Admin: 06/28/17 09:07 Dose: 5 mg Aspirin (Aspirin Ec Tab*) 81 mg PO DAILY [facility] Last Admin: 06/28/17 09:06 Dose: 81 mg Dextrose (D50w Syringe 50 Ml*) 12.5 gm IV PUSH .FOR FS < 60 - SS PRN PRN Reason: FS < 60 Diltiazem HCl (Cardizem Cd Cap*) 180 mg PO DAILY [facility] Last Admin: 06/28/17 09:07 Dose: 180 mg Heparin Sodium (Porcine) (Heparin Vial(*)) 5,000 units SUBCUT Q8HR [facility] Last Admin: 06/28/17 14:20 Dose: 5,000 units Hydralazine HCl (Apresoline Iv*) 5 mg IV SLOW PU Q6H PRN PRN Reason: SBP>180 Ceftriaxone Sodium 1 gm/ (Sodium Chloride) 50 mls @ 200 mls/hr IVPB Q24H [facility] Last Admin: 06/28/17 08:57 Dose: 200 mls/hr Potassium Chloride 40 meq/ (Lactated Ringer's) 1,020 mls @ 100 mls/hr IVPB Q10H [facility] Stop: 06/28/17 17:00 Last Admin: 06/28/17 10:12 Dose: 100 mls/hr Insulin Glargine (Lantus(*)) 10 units SUBCUT DAILY [facility] Last Admin: 06/28/17 09:04 Dose: 10 units Insulin Human Lispro (Humalog*) 0 units SUBCUT ACHS [facility] PRN Reason: Protocol Last Admin: 06/28/17 13:37 Dose: 2 unit Metoprolol Tartrate (Lopressor Tab*) 37.5 mg PO BID [facility] Last Admin: 06/28/17 09:06 Dose: 37.5 mg Metoprolol Tartrate (Lopressor Iv*) 5 mg IV Q6H PRN PRN Reason: SBP>180 or HR>120 Vital Signs - 8 hr 06/28/17 06/28/17 06/28/17 08:00 12:07 14:05 Temperature 97.4 F 97.8 F Pulse Rate 67 67 Respiratory 18 18 18 Rate Blood Pressure 140/42 142/46 (mmHg) O2 Sat by Pulse 96 98 Oximetry 06/28/17 15:20 Temperature 98.3 F Pulse Rate 66 Respiratory 24 Rate Blood Pressure 134/49 (mmHg) O2 Sat by Pulse 97 Oximetry Oxygen Devices in Use Now: None Appearance: Pleasantly confused elderly lady sitting up in bed in NAD. Eyes: No Scleral Icterus Ears/Nose/Mouth/Throat: Mucous Membranes Moist Neck: Trachea Midline Respiratory: Symmetrical Chest Expansion and Respiratory Effort, Clear to Auscultation Cardiovascular: RRR - Normal S1 and S2 Abdominal: NL Sounds; No Tenderness; No Distention Neurological: - - AAOx1 (self only), dysarthria Result Diagrams: 06/28/17 05:44 06/28/17 05:44 Assess/Plan/Problems-Billing Assessment: Mrs. Huynh is an 87yo F with PMH of CVA, s/p pacer, mild , LBBB, diastolic CHF, HTN, HLD, dementia, chronic Thibodeaux catheter, recent admission for UTI, who presented to ED lethargic, found to have severe sepsis secondary to UTI. - Patient Problems (1) Severe sepsis Comment: - Patient presented with tachycardia, leukocytosis, and was also found to be in RUBY, to have elevated troponin and encephalopathy. - Source is UTI. (2) UTI (urinary tract infection) Comment: - Thibodeaux catheter related, present on admission. - Urine culture is growing Proteus, sensitivity pending. - Continue Ceftriaxone. (3) Acute kidney injury Comment: - Improving. - Suspect secondary to UTI and possible urinary retention as reported issues with catheter prior to having it changed. - Continue IVF. (4) Elevated troponin Comment: - Secondary to demand ischemia in the setting of sepsis. - Continue Aspirin and beta chintan. (5) Encephalopathy Comment: - Secondary to sepsis, much improved. (6) Pressure ulcer of both heels Comment: - Present on admission. (7) Diabetes mellitus Comment: - Increase Lantus and continue Lispro SS. (8) DVT prophylaxis Comment: - SQ heparin. (9) DNR (do not resuscitate) Status and Disposition: Inpatient. Anticipate return to [place] when stable.
[2017-06-28] MEDS ORDERED: Insulin GLARGINE(*) 1 UNITS UNIT SUBCUT ONE (16:00)
[2017-06-29] MEDS: Heparin VIAL(*) 5000 UNITS/ML VIAL (FIVE THOUSAND) SUBCUT SCH ×3 (05:09→20:47)
[2017-06-29] MEDS: Diltiazem CD CAP* 180 MG PO SCH ×2 (08:00→08:09)
[2017-06-29] MEDS: Insulin GLARGINE(*) 1 UNITS UNIT SUBCUT SCH (08:00)
[2017-06-29] MEDS: amLODIPine TAB* 5 MG PO SCH (08:00)
[2017-06-29] MEDS: Metoprolol Tartrate TAB* 25 MG PO SCH ×2 (08:00→20:46)
[2017-06-29] MEDS: Aspirin EC TAB* 81 MG TAB.EC PO SCH (08:00)
[2017-06-29] MEDS: cefTRIAXone(*) 1 GM in NS 0.9% 50 ML* 50 ML IVPB SCH (08:00)
[2017-06-29] MEDS: Insulin LISPRO* 1 UNITS UNIT SUBCUT SCH ×4 (08:28→20:47)
[2017-06-29] MEDS ORDERED: Insulin GLARGINE(*) 1 UNITS UNIT SUBCUT SCH (09:00)
--- NOTE | 2017-06-29 14:22 | PN ---
Subjective Date of Service: 06/29/17 Interval History: HOSPITALIST PROGRESS NOTE Patient seen and examined at bedside. She's is awake today, pleasantly confused, offers no complaints. Family History: Unchanged from Admission Social History: Unchanged from Admission Past Medical History: Unchanged from Admission Objective Active Medications: Acetaminophen (Tylenol Supp*) 650 mg [place] Q4H PRN PRN Reason: Pain/fever Last Admin: 06/27/17 21:23 Dose: 650 mg Amlodipine Besylate (Norvasc Tab*) 5 mg PO DAILY [facility] Last Admin: 06/29/17 08:00 Dose: 5 mg Aspirin (Aspirin Ec Tab*) 81 mg PO DAILY [facility] Last Admin: 06/29/17 08:00 Dose: 81 mg Dextrose (D50w Syringe 50 Ml*) 12.5 gm IV PUSH .FOR FS < 60 - SS PRN PRN Reason: FS < 60 Diltiazem HCl (Cardizem Cd Cap*) 180 mg PO DAILY [facility] Last Admin: 06/29/17 08:09 Dose: Not Given Heparin Sodium (Porcine) (Heparin Vial(*)) 5,000 units SUBCUT Q8HR [facility] Last Admin: 06/29/17 13:08 Dose: 5,000 units Hydralazine HCl (Apresoline Iv*) 5 mg IV SLOW PU Q6H PRN PRN Reason: SBP>180 Ceftriaxone Sodium 1 gm/ (Sodium Chloride) 50 mls @ 200 mls/hr IVPB Q24H [facility] Last Admin: 06/29/17 08:00 Dose: 200 mls/hr Insulin Glargine (Lantus(*)) 10 units SUBCUT DAILY [facility] Last Admin: 06/29/17 08:00 Dose: 10 unit Insulin Human Lispro (Humalog*) 0 units SUBCUT ACHS [facility] PRN Reason: Protocol Last Admin: 06/29/17 12:25 Dose: 2 unit Metoprolol Tartrate (Lopressor Tab*) 37.5 mg PO BID [facility] Last Admin: 06/29/17 08:00 Dose: 37.5 mg Metoprolol Tartrate (Lopressor Iv*) 5 mg IV Q6H PRN PRN Reason: SBP>180 or HR>120 Vital Signs - 8 hr 06/29/17 06/29/17 07:20 08:00 Temperature 97.7 F Pulse Rate 70 Respiratory 20 18 Rate Blood Pressure 160/54 (mmHg) O2 Sat by Pulse 92 Oximetry Oxygen Devices in Use Now: None Appearance: Elderly lady lying in bed in NAD. Eyes: No Scleral Icterus Ears/Nose/Mouth/Throat: Mucous Membranes Moist Neck: Trachea Midline Respiratory: Symmetrical Chest Expansion and Respiratory Effort, Clear to Auscultation Cardiovascular: RRR - Normal S1 and S2 Neurological: - - AAOx1(self only) Result Diagrams: 06/28/17 05:44 06/28/17 05:44 Assess/Plan/Problems-Billing Assessment: Mrs. Huynh is an 87yo F with PMH of CVA, s/p pacer, mild , LBBB, diastolic CHF, HTN, HLD, dementia, chronic Thibodeaux catheter, recent admission for UTI, who presented to ED lethargic, found to have severe sepsis secondary to UTI. - Patient Problems (1) Severe sepsis Comment: - Patient presented with tachycardia, leukocytosis, and was also found to be in RUBY, to have elevated troponin and encephalopathy. - Source is UTI. (2) UTI (urinary tract infection) Comment: - Thibodeaux catheter related, present on admission. - Urine culture is growing Proteus, sensitive to Ceftriaxone. - This is her 2nd episode in 2 months of Proteus UTI - will request ID consult. (3) Acute kidney injury Comment: - Improved. - Suspect secondary to UTI and possible urinary retention as reported issues with catheter prior to having it changed. - D/c IVF. - US showed mild left hydro likely secondary to her Thibodeaux obstruction and UTI. (4) Elevated troponin Comment: - Secondary to demand ischemia in the setting of sepsis. - Continue Aspirin and beta chintan. (5) Encephalopathy Comment: - Secondary to sepsis, much improved. (6) Pressure ulcer of both heels Comment: - Present on admission. (7) Diabetes mellitus Comment: - Continue Lantus and Lispro SS. (8) DVT prophylaxis Comment: - SQ heparin. (9) DNR (do not resuscitate) Status and Disposition: Inpatient. Anticipate return to [place] when stable. Daughter updated at bedside.
[2017-06-29] MEDS: Nystatin TOP POWDER* 15 GM BTL TOPICAL SCH (20:46)
[2017-06-30] MEDS: Heparin VIAL(*) 5000 UNITS/ML VIAL (FIVE THOUSAND) SUBCUT SCH ×3 (05:48→21:07)
[2017-06-30] MEDS: Insulin LISPRO* 1 UNITS UNIT SUBCUT SCH ×4 (08:48→21:05)
[2017-06-30] MEDS: cefTRIAXone(*) 1 GM in NS 0.9% 50 ML* 50 ML IVPB SCH (09:45)
[2017-06-30] MEDS: Insulin GLARGINE(*) 1 UNITS UNIT SUBCUT SCH (09:45)
[2017-06-30] MEDS: Aspirin EC TAB* 81 MG TAB.EC PO SCH (09:45)
[2017-06-30] MEDS: amLODIPine TAB* 5 MG PO SCH (09:45)
[2017-06-30] MEDS: Diltiazem CD CAP* 180 MG PO SCH (10:10)
[2017-06-30] MEDS: Metoprolol Tartrate TAB* 25 MG PO SCH ×2 (10:10→21:07)
[2017-06-30] MEDS: Nystatin TOP POWDER* 15 GM BTL TOPICAL SCH ×3 (10:12→21:13)
--- NOTE | 2017-06-30 13:43 | PN ---
Subjective Date of Service: 06/30/17 Interval History: HOSPITALIST PROGRESS NOTE Patient seen and examined at bedside. She is very awake today, eating her breakfast with gusto. Offers no complaints. Family History: Unchanged from Admission Social History: Unchanged from Admission Past Medical History: Unchanged from Admission Objective Active Medications: Acetaminophen (Tylenol Supp*) 650 mg [place] Q4H PRN PRN Reason: Pain/fever Last Admin: 06/27/17 21:23 Dose: 650 mg Amlodipine Besylate (Norvasc Tab*) 5 mg PO DAILY [facility] Aspirin (Aspirin Ec Tab*) 81 mg PO DAILY [facility] Last Admin: 06/30/17 09:45 Dose: 81 mg Dextrose (D50w Syringe 50 Ml*) 12.5 gm IV PUSH .FOR FS < 60 - SS PRN PRN Reason: FS < 60 Diltiazem HCl (Cardizem Cd Cap*) 180 mg PO DAILY [facility] Heparin Sodium (Porcine) (Heparin Vial(*)) 5,000 units SUBCUT Q8HR [facility] Last Admin: 06/30/17 13:32 Dose: 5,000 units Hydralazine HCl (Apresoline Iv*) 5 mg IV SLOW PU Q6H PRN PRN Reason: SBP>180 Ceftriaxone Sodium 1 gm/ (Sodium Chloride) 50 mls @ 200 mls/hr IVPB Q24H [facility] Last Admin: 06/30/17 09:45 Dose: 200 mls/hr Insulin Glargine (Lantus(*)) 10 units SUBCUT DAILY [facility] Last Admin: 06/30/17 09:45 Dose: 10 unit Insulin Human Lispro (Humalog*) 0 units SUBCUT ACHS [facility] PRN Reason: Protocol Last Admin: 06/30/17 12:12 Dose: 3 unit Metoprolol Tartrate (Lopressor Iv*) 5 mg IV Q6H PRN PRN Reason: SBP>180 or HR>120 Metoprolol Tartrate (Lopressor Tab*) 37.5 mg PO BID [facility] Nystatin (Nystatin Top Powder*) 1 applic TOPICAL TID [facility] Last Admin: 06/30/17 13:32 Dose: 1 applic Vital Signs - 8 hr 06/30/17 06/30/17 07:51 08:00 Temperature 98.3 F Pulse Rate 59 Respiratory 16 18 Rate Blood Pressure 136/50 (mmHg) O2 Sat by Pulse 97 Oximetry Oxygen Devices in Use Now: None Appearance: Elderly lady sitting up in bed in NAD. Eyes: No Scleral Icterus Ears/Nose/Mouth/Throat: Mucous Membranes Moist Neck: Trachea Midline Respiratory: Symmetrical Chest Expansion and Respiratory Effort, Clear to Auscultation Cardiovascular: RRR - Normal S1 and S2 Neurological: - - Alert and awake, oriented to self Result Diagrams: 06/28/17 05:44 06/28/17 05:44 Assess/Plan/Problems-Billing Assessment: Mrs. Huynh is an 87yo F with PMH of CVA, s/p pacer, mild , LBBB, diastolic CHF, HTN, HLD, dementia, chronic Thibodeaux catheter, recent admission for UTI, who presented to ED lethargic, found to have severe sepsis secondary to UTI. - Patient Problems (1) Severe sepsis Comment: - Patient presented with tachycardia, leukocytosis, and was also found to be in RUBY, to have elevated troponin and encephalopathy. - Source is UTI. (2) UTI (urinary tract infection) Comment: - Thibodeaux catheter related, present on admission. - Urine culture is growing Proteus, sensitive to Ceftriaxone. - ID input appreciated - could give one dose of Augmentin prior to Thibodeaux manipulation, not necessarily every time it's changed. (3) Acute kidney injury Comment: - Improved. - Suspect secondary to UTI and possible urinary retention as reported issues with catheter prior to having it changed. - D/c IVF. - US showed mild left hydro likely secondary to her Thibodeaux obstruction and UTI. (4) Elevated troponin Comment: - Secondary to demand ischemia in the setting of sepsis. - Continue Aspirin and beta chintan. (5) Encephalopathy Comment: - Secondary to sepsis, much improved. (6) Pressure ulcer of both heels Comment: - Present on admission. (7) Diabetes mellitus Comment: - Continue Lantus and Lispro SS. (8) DVT prophylaxis Comment: - SQ heparin. (9) DNR (do not resuscitate) Status and Disposition: Inpatient. Anticipate return to [place] when stable.
[2017-07-01] MEDS: Heparin VIAL(*) 5000 UNITS/ML VIAL (FIVE THOUSAND) SUBCUT SCH ×3 (04:43→21:10)
[2017-07-01] MEDS: Insulin LISPRO* 1 UNITS UNIT SUBCUT SCH ×4 (07:37→21:10)
[2017-07-01] MEDS: Metoprolol Tartrate TAB* 25 MG PO SCH ×2 (08:13→21:10)
[2017-07-01] MEDS: amLODIPine TAB* 5 MG PO SCH (08:13)
[2017-07-01] MEDS: Aspirin EC TAB* 81 MG TAB.EC PO SCH (08:13)
[2017-07-01] MEDS: Diltiazem CD CAP* 180 MG PO SCH (08:13)
[2017-07-01] MEDS: ceFUROXime TAB(*) 250 MG PO SCH ×2 (08:13→21:10)
[2017-07-01] MEDS: Insulin GLARGINE(*) 1 UNITS UNIT SUBCUT SCH (08:13)
[2017-07-01] MEDS: Nystatin TOP POWDER* 15 GM BTL TOPICAL SCH ×3 (08:19→21:09)
--- NOTE | 2017-07-01 13:07 | PN ---
Subjective Date of Service: 07/01/17 Interval History: HOSPITALIST PROGRESS NOTE Patient seen and examined at bedside. She is good spirits today, smiling, enjoyed her breakfast. Offers no complaints. Family History: Unchanged from Admission Social History: Unchanged from Admission Past Medical History: Unchanged from Admission Objective Active Medications: Acetaminophen (Tylenol Supp*) 650 mg HI Q4H PRN PRN Reason: Pain/fever Last Admin: 06/27/17 21:23 Dose: 650 mg Amlodipine Besylate (Norvasc Tab*) 5 mg PO DAILY [facility] Last Admin: 07/01/17 08:13 Dose: 5 mg Aspirin (Aspirin Ec Tab*) 81 mg PO DAILY [facility] Last Admin: 07/01/17 08:13 Dose: 81 mg Cefuroxime Axetil (Ceftin Tab(*)) 250 mg PO BID [facility] Last Admin: 07/01/17 08:13 Dose: 250 mg Dextrose (D50w Syringe 50 Ml*) 12.5 gm IV PUSH .FOR FS < 60 - SS PRN PRN Reason: FS < 60 Diltiazem HCl (Cardizem Cd Cap*) 180 mg PO DAILY [facility] Last Admin: 07/01/17 08:13 Dose: 180 mg Heparin Sodium (Porcine) (Heparin Vial(*)) 5,000 units SUBCUT Q8HR [facility] Last Admin: 07/01/17 04:43 Dose: 5,000 units Hydralazine HCl (Apresoline Iv*) 5 mg IV SLOW PU Q6H PRN PRN Reason: SBP>180 Insulin Glargine (Lantus(*)) 10 units SUBCUT DAILY [facility] Last Admin: 07/01/17 08:13 Dose: 10 unit Insulin Human Lispro (Humalog*) 0 units SUBCUT ACHS [facility] PRN Reason: Protocol Last Admin: 07/01/17 07:37 Dose: Not Given Metoprolol Tartrate (Lopressor Iv*) 5 mg IV Q6H PRN PRN Reason: SBP>180 or HR>120 Metoprolol Tartrate (Lopressor Tab*) 37.5 mg PO BID [facility] Last Admin: 07/01/17 08:13 Dose: 37.5 mg Nystatin (Nystatin Top Powder*) 1 applic TOPICAL TID [facility] Last Admin: 07/01/17 08:19 Dose: 1 applic Vital Signs - 8 hr 04/07/01/17 07/01/17 07:47 08:13 09:15 Temperature 98.1 F 97.8 F Pulse Rate 72 68 Respiratory 18 20 18 Rate Blood Pressure 168/75 155/74 (mmHg) O2 Sat by Pulse 97 97 Oximetry 07/01/17 07/01/17 09:55 12:55 Temperature 98.1 F Pulse Rate 74 Respiratory 18 18 Rate Blood Pressure 132/75 (mmHg) O2 Sat by Pulse 97 Oximetry Oxygen Devices in Use Now: None Appearance: Elderly lady sitting up in bed in NAD. Eyes: No Scleral Icterus Ears/Nose/Mouth/Throat: Mucous Membranes Moist Neck: Trachea Midline Respiratory: Symmetrical Chest Expansion and Respiratory Effort, Clear to Auscultation Cardiovascular: RRR - Normal S1 and S2 Neurological: - - AAOx2 (self and place) Result Diagrams: 06/28/17 05:44 06/28/17 05:44 Assess/Plan/Problems-Billing Assessment: Mrs. Huynh is an 87yo F with PMH of CVA, s/p pacer, mild , LBBB, diastolic CHF, HTN, HLD, dementia, chronic Thibodeaux catheter, recent admission for UTI, who presented to ED lethargic, found to have severe sepsis secondary to UTI. - Patient Problems (1) Severe sepsis Comment: - Patient presented with tachycardia, leukocytosis, and was also found to be in RUBY, to have elevated troponin and encephalopathy. - Source is UTI. (2) UTI (urinary tract infection) Comment: - Thibodeaux catheter related, present on admission. - Urine culture grew Proteus sensitive to Cephalosporins - change to PO Cephalexin. - ID input appreciated - could give one dose of Augmentin prior to Thibodeaux manipulation, not necessarily every time it's changed. (3) Acute kidney injury Comment: - Improved. - Suspect secondary to UTI and possible urinary retention as reported issues with catheter prior to having it changed. - US showed mild left hydro likely secondary to her Thibodeaux obstruction and UTI. (4) Elevated troponin Comment: - Secondary to demand ischemia in the setting of sepsis. - Continue Aspirin and beta chintan. (5) Encephalopathy Comment: - Secondary to sepsis, much improved. (6) Pressure ulcer of both heels Comment: - Present on admission. (7) Diabetes mellitus Comment: - Continue Lantus and Lispro SS. (8) DVT prophylaxis Comment: - SQ heparin. (9) DNR (do not resuscitate) Status and Disposition: Inpatient. Anticipate return to [facility] in AM.
[2017-07-02] MEDS: Heparin VIAL(*) 5000 UNITS/ML VIAL (FIVE THOUSAND) SUBCUT SCH ×2 (05:42→14:06)
[2017-07-02] MEDS: Insulin LISPRO* 1 UNITS UNIT SUBCUT SCH ×2 (08:00→12:53)
[2017-07-02] MEDS: Insulin GLARGINE(*) 1 UNITS UNIT SUBCUT SCH (09:40)
[2017-07-02] MEDS: Metoprolol Tartrate TAB* 25 MG PO SCH (09:41)
[2017-07-02] MEDS: ceFUROXime TAB(*) 250 MG PO SCH (09:41)
[2017-07-02] MEDS: amLODIPine TAB* 5 MG PO SCH (09:42)
[2017-07-02] MEDS: Aspirin EC TAB* 81 MG TAB.EC PO SCH (09:42)
[2017-07-02] MEDS: Diltiazem CD CAP* 180 MG PO SCH (09:42)
[2017-07-02] MEDS: Nystatin TOP POWDER* 15 GM BTL TOPICAL SCH ×2 (09:44→14:07)
--- NOTE | 2017-07-02 11:06 | CONS ---
CONSULTATION REPORT: DATE OF CONSULT: 07/02/17 REQUESTING PHYSICIAN: Dr. Willis. CONSULTING SERVICE: Infectious Disease. REASON FOR CONSULTATION: Catheter-associated urinary tract infection after manipulation of catheter. IMPRESSION: 1. Encephalopathy that was present on admission has resolved. It was due to sepsis, which was also present and resolved, which was due to proteus catheter- associated urinary tract infection. 2. Chronic Thibodeaux catheter and had required recent manipulation during changing the Thibodeaux catheter, which was more difficult than usual. After, it had became blocked. She had a similar scenario about 6 weeks ago, also with proteus at that time. 3. Dementia. 4. PENICILLIN allergy, unknown reaction. 5. History of pacemaker. RECOMMENDATIONS: Given that she requires a chronic Thibodeaux, there are not a lot of options other than regular changing of the Thibodeaux catheter to prevent infection, which has already been done. Apparently, there has been some difficulty the last couple of times. The consideration would be a dose of Keflex 500 mg by mouth before manipulation of the Thibodeaux catheter, particularly if there is a blockage. If there is no other abnormality noted with the catheter, then could consider not giving prophylaxis before each change. HISTORY OF PRESENT ILLNESS: This is an 87-year-old woman with dementia, PENICILLIN allergy and chronic Thibodeaux catheter, admitted with sepsis and encephalopathy. She was brought to the hospital on 06/27/17 with decline in mental status. She cannot provide the history of events, which was obtained from review of the medical records and discussion with Dr. Willis. An ultrasound of the abdomen and bladder showed mild left hydronephrosis possible. There are no stones. She had a white count of 15,000 on admission, has decreased to 12,019. Urine culture came back growing Proteus mirabilis greater than 100,000 colonies. Blood cultures were negative. She was on ceftriaxone here, tolerated it well. She had improvement of her mental status, back to her baseline, which does include some dementia. She denies any pain, but cannot give more in the way of history. She apparently recently had a blockage in her Thibodeaux catheter and it was difficult to change the Thibodeaux catheter before this infection developed. PAST MEDICAL HISTORY: 1. Dementia. 2. Chronic Thibodeaux catheter with a history of urinary tract infection. 3. History of stroke in January 2017. 4. Status post pacemaker placement. 5. Mild aortic stenosis. 6. Left bundle-branch block. 7. Diastolic heart failure, history. 8. Hypertension. 9. Hyperlipidemia. 10. Bilateral heel pressure ulcers present on admission. 11. Allergy to PENICILLIN - hives is listed. She and her daughter do not know if it is true. MEDICATIONS: 1. Tylenol. 2. Amlodipine. 3. Aspirin. 4. Cefuroxime 250 mg by mouth twice daily. 5. Heparin subcutaneous injection. 6. Diltiazem. 7. Insulin glargine. 8. Insulin lispro. 9. Metoprolol. SOCIAL HISTORY: She was not a smoker or drinker. She has been living at [facility] since January. FAMILY HISTORY: She is unable to state. REVIEW OF SYSTEMS: Unobtainable, but does deny pain. PHYSICAL EXAMINATION: Vital Signs: Temperature 37, heart rate 60, respiratory rate 16, blood pressure 135/48, oxygen saturation 94% on room air. In general, she is awake, not in distress. Neurologic: She is oriented x1. Follows commands. She answers yes and no to couple of questions. Moves all extremities. HEENT: There is no thrush. There is no conjunctival hemorrhage. Neck: Supple without mass. Lymph Nodes: There is no inguinal, axillary, or epitrochlear lymphadenopathy. Heart: Regular rate and rhythm. Lungs are clear to auscultation bilaterally. Abdomen: Soft, nontender, nondistended. Bowel sounds present. Skin: There is no rash or splinter hemorrhages. Genitourinary: The Thibodeaux catheter is present. Musculoskeletal: There are small bilateral heel eschars with no surrounding erythema. LABORATORY DATA: White blood cell count 12, hemoglobin 11, platelets 231. Creatinine was 0.9 on 06/28/17. Please see impressions and recommendations as outlined above, which I have discussed with Dr. Willis. Thank you for asking me to see Ms. Huynh in consultation. [id number]/[facility] #: [id number] JUANA
--- NOTE | 2017-07-02 11:22 | DS ---
CC: Dr. Jovita Kearns at [facility]* DISCHARGE SUMMARY: DATE OF ADMISSION: 06/27/17 DATE OF DISCHARGE: 07/02/17 PRIMARY CARE PROVIDER: Dr. Sofiya Kearns DISCHARGE DIAGNOSES: 1. Severe sepsis. 2. Proteus urinary tract infection, Thibodeaux catheter related, present on admission. 3. Acute kidney injury. 4. Elevated troponin. 5. Encephalopathy. SECONDARY DIAGNOSES: 1. Cerebrovascular accident in January 2017, involving the right cerebellum extending to the right cerebellar peduncle. 2. Status post pacemaker. 3. Mild aortic stenosis. 4. Left bundle branch block. 5. Diastolic congestive heart failure. 6. Hypertension. 7. Hyperlipidemia. 8. Dementia. 9. Chronic pain. 10. Chronic Thibodeaux catheter. 11. Recent admission to [facility] for Proteus mirabilis urinary tract infection associated with chronic Thibodeaux from 05/12/17 to 05/16/17. 12. Bilateral heel un-stageable pressure ulcers present on admission. MEDICATIONS LIST: 1. Metformin 1000 mg p.o. b.i.d. 2. Senna/docusate two tablets p.o. at bedtime. 3. Metoprolol tartrate 37.5 mg p.o. b.i.d. 4. Lispro 4 units subcutaneously b.i.d. as needed for glucose greater than 250. 5. Lantus 10 units subcutaneously daily. 6. Diltiazem 180 mg p.o. daily. 7. Acetaminophen 1000 mg p.o. q.8 hours as needed for pain or fever. 8. Amlodipine 5 mg p.o. daily. 9. Aspirin 81 mg p.o. daily. 10. Nystatin powder to inguinal area t.i.d. New medications: Cefuroxime 250 mg p.o. b.i.d. for three more days. HOSPITAL COURSE: Ms. Huynh is an 87-year-old lady with past medical history as stated above who presented to the emergency room after being found less responsive at [facility]. The patient is unable to provide any history and as per daughter she was more lethargic, more confused and there was a description of some issues with the Thibodeaux catheter that was probably blocked. They did some manipulation trying to fix the issue but in the end, the Thibodeaux needed to be changed. Her workup in the emergency room was compatible with severe sepsis as the patient had leukocytosis with significant bandemia, acute kidney injury and elevated troponins. She was admitted to the medical floor and started on antibiotics. CT of the brain without contrast showed no acute intracranial pathology, diffuse involutional change with chronic small vessel ischemic changes and chronic infarct of the right superior cerebellum. Chest x-ray showed no active disease. Ultrasound of the abdomen and bladder showed possible mild left hydronephrosis. IMPRESSION: The patient has severe sepsis secondary to another episode of urinary tract infection and her urine culture grew Proteus mirabilis sensitive to cephalosporins. The patient had significant improvement of her symptoms and her mental status returned to its baseline. The case was discussed with infectious disease and the recommendation will be to give the patient cephalexin 500 mg p.o. times one dose 30 minutes prior to Thibodeaux catheter manipulation, not necessarily every time the Thibodeaux is changed, but if she has another episode where her Thibodeaux is blocked and manipulation of the obstruction are attempted, she could receive one dose of cephalexin 500 mg to try and decrease the chance of another infection since this scenario appears to be similar to the one that brought her to the hospital in May, and once again now in June. The patient had acute kidney injury that has now resolved. She had troponin elevation up to 0.22 and this is likely demand ischemia in the setting of severe sepsis. The patient is medically stable to be discharged back to [facility] today. PHYSICAL EXAMINATION: Vital Signs: Temperature 98.3, heart rate is 59, respiratory rate is 16, oxygen saturation is 95% on room air, blood pressure is 135/48. General: The patient is an elderly lady sitting up in bed in no acute distress. CVS: Normal S1 and S2. Regular rate and rhythm. Chest: Breath sounds present bilaterally with no added sounds. Abdomen: Soft, nontender, nondistended. Neuro: She is alert, awake, oriented to self and place. Extremities: The patient has clean dressing intact to her bilateral feet. DIET: Consistent carb diet, mechanical ground puree texture. DISPOSITION: [facility]. ACTIVITY: As tolerated. STATUS IN THE HOSPITAL: Inpatient. Please keep in mind this is a summarized version of this patient's hospital stay. If you need more information, please feel free to call me at [phone] or please obtain the full medical records. TIME SPENT: Approximately 45 minutes were spent to complete the discharge. [id number]/[facility] #: [id number] MTDD
[2017-07-02 11:51] VITALS: BP 154/55
== END 2017-07-02 15:25 | DRG 698 ==
LOC: ED 09:23 → MEDTELE 13:02 → MED 07-01 09:34
PROVIDERS: ADMIT Internal Medicine; ATTEND Internal Medicine
DX: T83.518A Infection and inflammatory reaction due to other urinary catheter, initial encounter (principal); A41.9 Sepsis, unspecified organism; G93.41 Metabolic encephalopathy; R65.20 Severe sepsis without septic shock; N17.0 Acute kidney failure with tubular necrosis; N39.0 Urinary tract infection, site not specified; I50.30 Unspecified diastolic (congestive) heart failure; B96.4 Proteus (mirabilis) (morganii) as the cause of diseases classified elsewhere; R74.8 Abnormal levels of other serum enzymes; I35.0 Nonrheumatic aortic (valve) stenosis; I44.7 Left bundle-branch block, unspecified; I11.0 Hypertensive heart disease with heart failure; Z66 Do not resuscitate; E78.5 Hyperlipidemia, unspecified; F03.90 Unspecified dementia, unspecified severity, without behavioral disturbance, psychotic disturbance, mood disturbance, and anxiety; G89.29 Other chronic pain; L89.620 Pressure ulcer of left heel, unstageable; L89.610 Pressure ulcer of right heel, unstageable; E11.9 Type 2 diabetes mellitus without complications; Z79.4 Long term (current) use of insulin; Z79.84 Long term (current) use of oral hypoglycemic drugs; Z86.73 Personal history of transient ischemic attack (TIA), and cerebral infarction without residual deficits; Z79.1 Long term (current) use of non-steroidal anti-inflammatories (NSAID); Z79.899 Other long term (current) drug therapy; Z88.0 Allergy status to penicillin; Z91.018 Allergy to other foods; Z95.0 Presence of cardiac pacemaker; R33.9 Retention of urine, unspecified; R41.82 Altered mental status, unspecified
CPT/HCPCS: 36415; 70450; 71045; 76770; 80048; 80053; 81003; 81015; 82803; 83605; 83690; 83880; 84145; 84484; 85025; 85610; 85730; 86140; 87040; 87077; 87086; 87186; 93005; 99284; A9270-GY; J0696; J1644; J3480

== ENCOUNTER 2017-09-09 12:00 | Emergency (ER) | payer MEDICARE ==
[2017-09-09] MEDS ORDERED: cefTRIAXone VIAL(*) 1,000 MG VIAL IM ONE (12:35)
[2017-09-09] MEDS ORDERED: Lidocaine 1%* 5 ML VIAL ONE (12:54)
[2017-09-09] MEDS ORDERED: Lidocaine 1%* 5 ML VIAL INJ ONE (12:58)
[2017-09-09 14:24] VITALS: BP 154/69
--- NOTE | 2017-09-09 16:50 | ED ---
Riaz Desouza Natalie, scribed for Shai Larios MD on 09/09/17 at 1247 . GI/ HPI - HPI Summary HPI Summary: The patient is an 87 y/o F presenting to [facility] from [facility] c/o staff at [facility] unable to flush or change castano catheter today. Per report from EMS, the pt's abd was distended, and the pt was wincing when abd was palpated. She was wet upon arrival. In the ED, it was seen that she has skin breakdown on her coccyx. She had an ischemic stroke in June 2017 and is nonverbal. - History of Current Complaint Chief Complaint: EDUrogenitalProblems Time Seen by Provider: 09/09/17 12:06 Stated Complaint: ABD PAIN Hx Obtained From: EMS Hx From Patient Unobtainable Due To: Other - LEVEL 5 CAVEAT pt is nonverbal from stroke Onset/Duration: Started Hours Ago Timing: Constant Severity: Severe Current Severity: Mild Pain Intensity: 0 Location of Pain: Diffuse - abd Associated Signs and Symptoms: Positive: Other: - obstructed castano catheter, distended abd, skin breakdown - Additional Pertinent History Primary Care Physician: [id number] - Allergy/Home Medications Allergies/Adverse Reactions: Allergies Allergy/AdvReac Type Severity Reaction Status Date / Time Penicillins Allergy Intermediate Hives Verified 06/27/17 09:49 wheat Allergy Mild Rash And Verified 06/27/17 09:49 Itching PMH/Surg Hx/FS Hx/Imm Hx Endocrine/Hematology History: Reports: Hx Diabetes - type 2 Cardiovascular History: Reports: Hx Cardiomegaly, Hx Coronary Artery Disease, Hx Hypercholesterolemia, Hx Hypertension, Hx Pacemaker/ICD, Other Cardiovascular Problems/Disorders - HLD Sensory History: Reports: Hx Cataracts, Hx Glaucoma Denies: Hx Contacts or Glasses, Hx Hearing Aid Opthamlomology History: Reports: Hx Cataracts, Hx Glaucoma Denies: Hx Contacts or Glasses Neurological History: Reports: Hx Dementia - mild - Surgical History Surgery Procedure, Year, and Place: pacemaker= 2009 cataracts 2013 Infectious Disease History: No Infectious Disease History: Denies: Traveled Outside the [place] in Last 30 Days - Family History Known Family History: Positive: Other - Mother: CVA - Social History Alcohol Use: unable to determine Substance Use Type: Reports: None Smoking Status (MU): Never Smoked Tobacco Type: Cigarettes Review of Systems Genitourinary: Other - castano catheter not in place Positive: Rash - skin breakdown on coccyx All Other Systems Reviewed And Are Negative: Yes - Comments Additional Review of Systems Comments: LEVEL 5 CAVEAT due to pt being nonverbal status post ischemic stroke Physical Exam - Summary Physical Exam Summary: Appearance: Well appearing, no pain distress, Status post stroke Skin: warm, dry, reflects adequate perfusion Head/face: normal Eyes: EOMI, HAMZAH ENT: normal Neck: supple, non-tender Respiratory: CTA, breath sounds present Cardiovascular: RRR, pulses symmetrical Abdomen: non-tender, soft Bowel Sounds: present Exam: stage 3 decubitus ulcer, new 16 filemon castano catheter with 1200cc urine output with tiny clot seen inside castano Musculoskeletal: normal, strength/ROM intact Neuro: normal, sensory motor intact, nonverbal Triage Information Reviewed: Yes Vital Signs On Initial Exam: Initial Vitals Temp Pulse Resp BP Pulse Ox 98.2 F 72 11 178/69 97 09/09/17 12:07 09/09/17 12:07 09/09/17 12:07 09/09/17 12:07 09/09/17 12:07 Vital Signs Reviewed: Yes Diagnostics - Vital Signs Vital Signs Temp Pulse Resp BP Pulse Ox 09/09/17 12:07 98.2 F 72 11 178/69 97 - Laboratory Lab Statement: Any lab studies that have been ordered have been reviewed, and results considered in the medical decision making process. Re-Evaluation - Re-Evaluation First Eval Re-Evaluation Time: 12:30 Change: Improved Comment: Upon exam, nurse reports skin breakdown. New castano was placed by nurse. Pt will be discharged home back to [facility]. GIGU Course/Dx - Course Course Of Treatment: Nursing facility sent patient in as they're unable to flush her Castano catheter. Urine and flush soaked the patient's undergarments. We're able to place a larger 16 Hungarian catheter with 1200 cc of cloudy urine out. Patient has no fever. Her muscular Rocephin was given. A culture was obtained. She also has a sacral decubitus ulcer which was dressed with a DuoDERM. She will require increased turning. Discharged in good condition. - Diagnoses Provider Diagnoses: Decubitus ulcer, Status post stroke, Obstructed Castano catheter, Urinary retention Discharge - Sign-Out/Discharge Documenting (check all that apply): Discharge/Admit/Transfer - Pt will be discharged home. - Discharge Plan Condition: Fair Disposition: HOME Discharge Disposition Comment: Pt will be discharged home to [facility]. Patient Education Materials: Castano Catheter Placement and Care (ED), How to Prevent Pressure Injuries (ED), Acute Urinary Retention in Women (ED) Referrals: Jovita Kearns MD [Primary Care Provider] - Additional Instructions: Return with fever, vomiting, unable to drain urine from catheter, worse or other concerns. Performed wound care to sacral decubitus ulcer. DuoDERM applied in the ER. - Billing Disposition and Condition Condition: FAIR Disposition: Home The documentation as recorded by the Riaz barnett Natalie accurately reflects the service I personally performed and the decisions made by , Shai Larios MD.
== END 2017-09-09 14:23 | disposition home or self-care (01) ==
LOC: ED 12:00
DX: T83.098A Other mechanical complication of other urinary catheter, initial encounter (principal); R33.9 Retention of urine, unspecified; L89.153 Pressure ulcer of sacral region, stage 3; I69.328 Other speech and language deficits following cerebral infarction; Z88.0 Allergy status to penicillin; Z95.0 Presence of cardiac pacemaker
CPT/HCPCS: 51702; 87077; 87086; 87186; 96372; 99283; J0696

== ENCOUNTER 2017-09-10 08:33 | Emergency (ER) | payer MEDICARE ==
[2017-09-10 09:15] LABS: ABS Basophils 0.1 10^3/ul (0-0.2); ABS Eosinophils 0.1 10^3/ul (0-0.6); ABS Lymphocytes 1.9 10^3/ul (1.0-4.8); ABS Monocytes 0.6 10^3/ul (0-0.8); ABS Neutrophils 17.5 10^3/ul (1.5-7.7); ABS Nucleated RBC 0 10^3/ul; Eosinophil % 0.6 % (0-6); Hematocrit 37 % (35-47); Hemoglobin 11.9 g/dl (12.0-16.0); Lymphocyte % 9.2 % (25-47); Mean Corpuscular HGB Conc 32 g/dl (31-36); Mean Corpuscular Hemoglobin 31 pg (27-31); Mean Corpuscular Volume 94 fL (80-97); Mean Platelet Volume 7.6 um3 (7.4-10.4); Nucleated Red Blood Cells % 0; Platelet Count 356 10^3/ul (150-450); Red Blood Count 3.88 10^6/ul (4.00-5.40); Red Cell Distribution Width 15 % (10.5-15); White Blood Count 20.2 10^3/ul (3.5-10.8)
[2017-09-10 09:23] LABS: INR 0.99 (0.77-1.02)
[2017-09-10] MEDS ORDERED: Levofloxacin 750 MG IVPREMIX(* 750 MG/150 ML BAG IVPB ONE (09:32)
[2017-09-10 09:42] LABS: Urine Appearance Cloudy; Urine Color Red; Urine Specific Gravity 1.017 (1.010-1.030)
[2017-09-10] MEDS ORDERED: NS 0.9% 1000 ML* 1,000 ML IV ONE (11:12)
[2017-09-10 13:50] VITALS: BP 168/95
--- NOTE | 2017-09-11 07:27 | PN ---
Progress Note - Progress Note Date of Service: 09/09/17 Note: Urine culture preliminary grew Proteus Mirabella's 100,000 Patient was placed on Cipro prior to discharge We'll await sensitivities
--- NOTE | 2017-09-12 12:09 | ED ---
Jimenez Desouza Tiffany, scribed for Kayden Thomason MD on 09/10/17 at 0852 . Complex/Multi-Sys Presentation - HPI Summary HPI Summary: 87 year old F [facility] complains of decreased responsiveness per group home staff since 08:00 today. Symptoms aggravated by nothing. Symptoms alleviated by nothing. shelter staff reports patient was hypotensive. Patient became more alert and blood pressure improved when EMS sat her up. Seen here yesterday to have catheter changed and for abdominal distension. Patient is non-verbal at baseline secondary to ischemic stroke June 2017. - History Of Current Complaint Hx Obtained From: EMS, Other: - group home staff Onset/Duration: Lasting Hours - 1, Still Present Timing: Constant Aggravating Factor(s): nothing Alleviating Factor(s): nothing Associated Signs And Symptoms: Positive: Other - hypotension - Allergies/Home Medications Allergies/Adverse Reactions: Allergies Allergy/AdvReac Type Severity Reaction Status Date / Time Penicillins Allergy Intermediate Hives Verified 09/10/17 09:35 wheat Allergy Mild Rash And Verified 09/10/17 09:35 Itching Home Medications: Home Medications Acetaminophen [Tylenol Extra Strength] 1,000 mg PO Q8H PRN 09/10/17 [History Confirmed 09/10/17] Amino Acids/Protein Hydrolys [Liquacel 100 Liquid Packet] 30 ml PO BID 09/10/17 [History Confirmed 09/10/17] Aspirin EC TAB* [Ecotrin EC Low Dose 81 MG*] 81 mg PO DAILY 09/10/17 [History Confirmed 09/10/17] Diltiazem CD CAP* [Cardizem CD CAP*] 180 mg PO DAILY 09/10/17 [History Confirmed 09/10/17] Insulin GLARGINE(*) [Lantus(*)] 16 units SUBCUT DAILY 09/10/17 [History Confirmed 09/10/17] Insulin LISPRO* [HumaLOG*] 4 units SUBCUT BID 09/10/17 [History Confirmed ] L.acidoph,Paracasei, B.lactis [Probiotic] 1 each PO DAILY 09/10/17 [History Confirmed 09/10/17] Metoprolol Tartrate TAB* [Lopressor TAB*] 37.5 mg PO BID 09/10/17 [History Confirmed 09/10/17] Nystatin TOP POWDER* 1 applic TOPICAL TID 09/10/17 [History Confirmed 09/10/17] amLODIPine TAB* [Norvasc 5 mg TAB*] 5 mg PO DAILY 09/10/17 [History Confirmed ] metFORMIN* [Glucophage 1000 MG TAB *] 1,000 mg PO BID 09/10/17 [History Confirmed 09/10/17] traMADol TAB* [Ultram*] 25 mg PO Q8H PRN 09/10/17 [History Confirmed 09/10/17] PMH/Surg Hx/FS Hx/Imm Hx Previously Healthy: No Endocrine/Hematology History: Reports: Hx Diabetes - type 2 Cardiovascular History: Reports: Hx Cardiomegaly, Hx Coronary Artery Disease, Hx Hypercholesterolemia, Hx Hypertension, Hx Pacemaker/ICD, Other Cardiovascular Problems/Disorders - HLD Sensory History: Reports: Hx Cataracts, Hx Glaucoma Denies: Hx Contacts or Glasses, Hx Hearing Aid Opthamlomology History: Reports: Hx Cataracts, Hx Glaucoma Denies: Hx Contacts or Glasses Neurological History: Reports: Hx Dementia - mild, Other Neuro Impairments/ Disorders - ischemic stroke in june 2017 - Surgical History Surgery Procedure, Year, and Place: pacemaker= 2009 cataracts 2013 Infectious Disease History: Denies: Traveled Outside the [place] in Last 30 Days - Family History Known Family History: Positive: Other - Mother: CVA - Social History Alcohol Use: unable to determine Hx Substance Use: No Substance Use Type: Reports: None Hx Tobacco Use: Yes Smoking Status (MU): Former Smoker Type: Cigarettes Review of Systems Positive: Other - hypotension Neurological: Other - decreased responsiveness All Other Systems Reviewed And Are Negative: Yes Physical Exam - Summary Physical Exam Summary: Appearance: The patient is in no acute distress and in no acute pain. The patient is non-verbal and mumbling. She prefers to keep her eyes shut but will open her eyes in response to verbal stimuli. Skin: The skin is warm and dry and skin color reflects adequate perfusion. HEENT: The head is normocephalic and atraumatic. The pupils are equal and reactive. The conjunctivae are clear and without drainage. Nares are patent and without drainage. Mouth reveals moist mucous membranes and the throat is without erythema and exudate. The external ears are intact. The ear canals are patent and without drainage. The tympanic membranes are intact. Neck: The neck is supple with full range of motion and non-tender. There are no carotid bruits. There is no neck vein distension. Respiratory: Chest is non-tender. Lungs are clear to auscultation and breath sounds are symmetrical and equal. Cardiovascular: Heart is regular rate and rhythm. There is no murmur or rub auscultated. There is no peripheral edema and pulses are symmetrical and equal. Abdomen: The abdomen is soft and non-tender. There are normal bowel sounds heard in all four quadrants and there is no organomegaly palpated. There is blood tinged urine in her castano. Musculoskeletal: There is no back tenderness noted. Extremities are non-tender with full range of motion. There is good capillary refill. There is no peripheral edema or calf tenderness elicited. Neurological: Patient is alert and oriented to person, place and time. The patient has symmetrical motor strength in all four extremities. Cranial nerves are grossly intact. Deep tendon reflexes are symmetrical and equal in all four extremities. Psychiatric: The patient has an appropriate affect and does not exhibit any anxiety or depression. Triage Information Reviewed: Yes Vital Signs On Initial Exam: Initial Vitals Pulse Resp BP Pulse Ox 81 13 170/61 93 09/10/17 08:38 09/10/17 08:38 09/10/17 08:38 09/10/17 08:38 Vital Signs Reviewed: Yes Diagnostics - Vital Signs Vital Signs Temp Pulse Resp BP Pulse Ox 09/10/17 13:53 97.8 F 74 15 168/95 100 09/10/17 13:39 91 21 168/95 100 09/10/17 13:09 80 13 155/75 100 09/10/17 13:00 71 12 100 09/10/17 12:38 72 13 159/70 100 09/10/17 12:08 68 13 137/57 100 09/10/17 12:00 71 13 98 09/10/17 11:54 81 13 138/56 99 09/10/17 11:39 20 164/141 09/10/17 11:09 82 21 168/81 100 09/10/17 11:00 73 21 98 09/10/17 10:39 78 14 132/62 99 09/10/17 10:09 76 13 133/51 100 09/10/17 10:00 76 17 100 09/10/17 09:39 78 16 141/71 100 09/10/17 09:09 69 25 182/66 98 07/02/18 09:00 72 17 100 09/10/17 08:39 97.8 F 72 19 170/61 96 09/10/17 08:38 81 13 170/61 93 - Laboratory Lab Results: Lab Results 09/10/17 09/10/17 09/10/17 Range/Units 09:07 09:07 09:07 WBC 20.2 H (3.5-10.8) 10^3/ul RBC 3.88 L (4.00-5.40) 10^6/ul Hgb 11.9 L (12.0-16.0) g/dl Hct 37 (35-47) % MCV 94 (80-97) fL MCH 31 (27-31) pg MCHC 32 (31-36) g/dl RDW 15 (10.5-15) % Plt Count 356 (150-450) 10^3/ul MPV 7.6 (7.4-10.4) um3 Neut % (Auto) 86.7 H (38-83) % Lymph % (Auto) 9.2 L (25-47) % Williams % (Auto) 3.2 (0-7) % Eos % (Auto) 0.6 (0-6) % Baso % (Auto) 0.3 (0-2) % Absolute Neuts (auto) 17.5 H (1.5-7.7) 10^3/ul Absolute Lymphs (auto) 1.9 (1.0-4.8) 10^3/ul Absolute Monos (auto) 0.6 (0-0.8) 10^3/ul Absolute Eos (auto) 0.1 (0-0.6) 10^3/ul Absolute Basos (auto) 0.1 (0-0.2) 10^3/ul Absolute Nucleated RBC 0 10^3/ul Nucleated RBC % 0 INR (Anticoag Therapy) 0.99 (0.77-1.02) Sodium 138 (135-145) mmol/L Potassium 3.8 (3.5-5.0) mmol/L Chloride 101 (101-111) mmol/L Carbon Dioxide 28 (22-32) mmol/L Anion Gap 9 (2-11) mmol/L BUN 59 H (6-24) mg/dL Creatinine 1.06 H (0.51-0.95) mg/dL Est GFR ( Amer) 59.3 (>60) Est GFR (Non-Af Amer) 49.0 (>60) BUN/Creatinine Ratio 55.7 H (8-20) Glucose 218 H (70-100) mg/dL Lactic Acid (0.5-2.0) mmol/L Calcium 10.0 (8.6-10.3) mg/dL Total Bilirubin 0.40 (0.2-1.0) mg/dL AST 11 L (13-39) U/L ALT 9 (7-52) U/L Alkaline Phosphatase 106 H (34-104) U/L Troponin I 0.04 H* (<0.04) ng/mL Total Protein 7.3 (6.4-8.9) g/dL Albumin 3.2 (3.2-5.2) g/dL Globulin 4.1 H (2-4) g/dL Albumin/Globulin Ratio 0.8 L (1-3) Urine Color Urine Appearance Urine pH Ur Specific [place] (1.010-1.030) Urine Protein Urine Ketones Urine Blood Urine Nitrate Urine Bilirubin Urine Urobilinogen Ur Leukocyte Esterase Urine WBC (Auto) (Absent) Urine RBC (Auto) (Absent) Urine Glucose Urine Ascorbic Acid 09/10/17 09/10/17 Range/Units 09:07 09:17 WBC (3.5-10.8) 10^3/ul RBC (4.00-5.40) 10^6/ul Hgb (12.0-16.0) g/dl Hct (35-47) % MCV (80-97) fL MCH (27-31) pg MCHC (31-36) g/dl RDW (10.5-15) % Plt Count (150-450) 10^3/ul MPV (7.4-10.4) um3 Neut % (Auto) (38-83) % Lymph % (Auto) (25-47) % Williams % (Auto) (0-7) % Eos % (Auto) (0-6) % Baso % (Auto) (0-2) % Absolute Neuts (auto) (1.5-7.7) 10^3/ul Absolute Lymphs (auto) (1.0-4.8) 10^3/ul Absolute Monos (auto) (0-0.8) 10^3/ul Absolute Eos (auto) (0-0.6) 10^3/ul Absolute Basos (auto) (0-0.2) 10^3/ul Absolute Nucleated RBC 10^3/ul Nucleated RBC % INR (Anticoag Therapy) (0.77-1.02) Sodium (135-145) mmol/L Potassium (3.5-5.0) mmol/L Chloride (101-111) mmol/L Carbon Dioxide (22-32) mmol/L Anion Gap (2-11) mmol/L BUN (6-24) mg/dL Creatinine (0.51-0.95) mg/dL Est GFR ( Amer) (>60) Est GFR (Non-Af Amer) (>60) BUN/Creatinine Ratio (8-20) Glucose (70-100) mg/dL Lactic Acid 1.0 (0.5-2.0) mmol/L Calcium (8.6-10.3) mg/dL Total Bilirubin (0.2-1.0) mg/dL AST (13-39) U/L ALT (7-52) U/L Alkaline Phosphatase (34-104) U/L Troponin I (<0.04) ng/mL Total Protein (6.4-8.9) g/dL Albumin (3.2-5.2) g/dL Globulin (2-4) g/dL Albumin/Globulin Ratio (1-3) Urine Color Red A Urine Appearance Cloudy Urine pH TNP Ur Specific [place] 1.017 (1.010-1.030) Urine Protein TNP Urine Ketones TNP Urine Blood TNP Urine Nitrate TNP Urine Bilirubin TNP Urine Urobilinogen TNP Ur Leukocyte Esterase TNP Urine WBC (Auto) 3+(>20/hpf) A (Absent) Urine RBC (Auto) 3+(>10/hpf) A (Absent) Urine Glucose TNP Urine Ascorbic Acid TNP Result Diagrams: 09/10/17 09:07 09/10/17 09:07 Lab Statement: Any lab studies that have been ordered have been reviewed, and results considered in the medical decision making process. - EKG 08:47 Cardiac Rate: NL - 67 bpm EKG Rhythm: Sinus Rhythm EKG Interpretation: paced Complex Multi-Symp Course/Dx Course Of Treatment: Ms. Huynh had an episode of hypotension and unresponsiveness at the group home and the ambulance was called. They found her to be poorly responsive and hypotensive which suddenly improved when they changed positions. She was brought in and noted to be afebrile with normal vitals and nontoxic in appearance. She had been here yesterday and had a Castano catheter changed because it was obstructed. The urine was cloudy and she was given a shot of Rocephin and discharged back. The urine in the Castano is pink tinged today and UA looks grossly infected therefore she was given IV Levaquin. She remained stable here in the emergency department and I feel that she can go back safely to the group home with a prescription for Cipro. - Diagnoses Provider Diagnoses: Dehydration, Urinary tract infection Discharge - Sign-Out/Discharge Documenting (check all that apply): Discharge/Admit/Transfer - discharge - Discharge Plan Condition: Stable Disposition: HOME Prescriptions: Ciprofloxacin TAB* [Cipro Tab*] 500 mg PO BID #20 tab Patient Education Materials: Urinary Tract Infection in Women (ED) Referrals: Jovita Kearns MD [Primary Care Provider] - 2 Days Additional Instructions: Follow up with your primary care provider in 2-3 days. Return to the Emergency Department for new or worsening symptoms. - Billing Disposition and Condition Condition: STABLE Disposition: Home The documentation as recorded by the Jimenez barnett Tiffany accurately reflects the service I personally performed and the decisions made by me, Kayden Thomason MD.
--- NOTE | 2017-09-13 07:44 | PN ---
Progress Note - Progress Note Date of Service: 09/10/17 Note: Called patient's residence, [facility] at 7:30 AM to make aware of new prescription Faxed over sensitivities to [facility] with recommended prescription RN states she will present this to her provider
== END 2017-09-10 15:19 | disposition home or self-care (01) ==
LOC: ED 08:33
DX: E86.0 Dehydration (principal); N39.0 Urinary tract infection, site not specified; I95.9 Hypotension, unspecified; E11.9 Type 2 diabetes mellitus without complications; I10 Essential (primary) hypertension; F03.90 Unspecified dementia, unspecified severity, without behavioral disturbance, psychotic disturbance, mood disturbance, and anxiety; Z79.84 Long term (current) use of oral hypoglycemic drugs; Z79.899 Other long term (current) drug therapy; Z95.0 Presence of cardiac pacemaker; Z88.0 Allergy status to penicillin
CPT/HCPCS: 36415; 80053; 81003; 83605; 84484; 85025; 85610; 93005; 96361; 96365; 96366; 99283